=== PATIENT | female | born 1955 | race Caucasian/White ===

== ENCOUNTER 2018-06-16 16:25 | Emergency (ER) | payer BC, MEDICARE, SELFPAY ==
[2018-06-16 16:26] VITALS: BP 148/56; PULSE 80; RESP 20; TEMP 36.5; O2SAT 100; BMI 28.0
--- NOTE | 2018-06-16 17:15 | ED.VISSUMM ---
- ER Visit Summary Date of Service: 06/16/18 Chief Complaint: Forehead laceration History of Present Illness: The patient is a 62 F presenting secondary to a forehead laceration. Patient suffered a mechanical fall where she struck her forehead on its. There is no loss of consciousness. Patient not on any anticoagulants. Denies any visual changes numbness weakness nausea vomiting. Physical Examination: Primary survey: Airway is patent, breath sounds equal bilateral, central peripheral pulses 2+ and symmetric, GCS 15 out of 15. Vitals within normal limits. Secondary survey: General: Well-nourished well-developed no acute distress Head: Normocephalic 2 cm left forehead laceration Eyes: PERRLA, EOMI ENT: TMs clear no hemotympanum no drainage Neck: Nontender full range of motion, no step-offs noted Heart: Regular rate and rhythm no murmurs Lungs: Respirations nondistressed, lung sounds clear to auscultation bilaterally, chest nontender, normal chest excursion bilaterally Abdomen: Soft nontender nondistended normal bowel sounds no palpable abdominal masses Back: Nontender no step-offs noted Extremities: Nontender: Active full range of motion ?4 Skin: Normal color no trauma Neuro: Alert and oriented ?4, GCS 15 out of 15, no lateralizing neurological deficits, baseline tremor Test Results: None indicated Emergency Department Course and Treatment: Patient presented secondary to the forehead laceration. Patient is negative per the [place] [facility] head CT rules, there is no indication for neuroimaging. Wound was prepared with Shtracy-Clens, was anesthetized using 3 cc of lidocaine with epinephrine. It was copiously irrigated with saline and explored. There were no foreign bodies. Wound was then approximated using 4-0 nylon suture in a running fashion. A total of 4 sutures were placed. Patient tolerated this well. Wound was dressed with bacitracin. Patient was discharged. Disposition: Discharge Impression: 1. 2 cm left sided forehead laceration 2. Laceration repaired by ED physician This note was generated with [employer] dictation software. It may contain incorrect words, spelling, and punctuation that were not noted in review of the chart prior to signing ED Disposition - Plan for ED Patient: Disposition: Home or Assisted Living Chief Complaint: Fall Diagnosis: Forehead laceration Instructions: ED Laceration All Referrals: Paty Linder NP-C [Primary Care Provider] - 7 Days for suture removal
--- NOTE | 2018-06-16 18:44 | NURSING ---
DEONDRE CONTACTED AT HOME AND INSTRUCTED TO COME BACK FOR TETANUS SHOT. PT UNABLE TO GET RIDE HERE TONIGHT AND INSTRUCTED NOT TO WALK HERE. PT INFORMED OF THE NEED TO HAVE SHOT WITHIN NEXT 48 HOURS AND TOLD TO HAVE SOMEONE DRIVE HER HERE TOMORROW TO GET TETANUS SHOT. DR. NOONAN NOTIFIED TETANUS SHOT WAS NOT GIVEN AND INSTRUCTED TO MAKE SURE SHE CAME BACK WITHIN THE NEXT 48HOURS TO GET IT.
--- NOTE | 2018-06-17 12:19 | ED.RN ---
Pt was instructed to come back to the ED to receive Tetnus shot due to not receiving it as ordered yesterday (day of visit). I was instructed by bellows charger assembler to pull up patients V number from yesterday and administer adecel vaccine. Vaccine administered per JUL. Pt vital signs 128/72, 83, 99% R 16 and temp 98.2F. Pt tolerated well. Pt stayed in second triage room for 20 minutes per shot time protocol. No reaction noted.
[2018-06-17] MEDS: Diphth,Pertuss(Acell),Tet Vac 0.5 ML Vial IM (12:25)
== END 2018-06-16 17:30 | disposition home or self-care (01) ==
LOC: ED 18:02
PROVIDERS: Emergency Provider Emergency Medicine; Family Provider Nurse Practitioner Primary Care; PCP Nurse Practitioner Primary Care
DX: S01.81XA Laceration without foreign body of other part of head, initial encounter (principal); W01.10XA Fall on same level from slipping, tripping and stumbling with subsequent striking against unspecified object, initial encounter; Y93.9 Activity, unspecified; Y92.9 Unspecified place or not applicable; Y99.9 Unspecified external cause status; Z23 Encounter for immunization; R25.1 Tremor, unspecified; Z79.899 Other long term (current) drug therapy
CPT/HCPCS: 12011; 90715; 99284

== ENCOUNTER 2019-04-27 17:30 | Emergency (ER) | payer MEDICARE, MEDICAID, SELFPAY ==
[2019-04-27 17:31] VITALS: BP 154/86; PULSE 73; RESP 18; TEMP 36.9; O2SAT 99; BMI 25.0
--- NOTE | 2019-04-27 17:44 | RAD_ITS ---
STUDY: X-RAY - LEFT ANKLE REASON FOR EXAM: Female, 63 years old. Rolled ankle last Sebastián. Persistent pain and swelling. TECHNIQUE: 3 view(s) of the ankle. COMPARISON: None. FINDINGS: Normal visualized distal tibia and fibula. Normal medial and lateral malleoli. Normal tibiotalar articulation and ankle mortise. Normal visualized talus and calcaneus. Mild arthrosis of the visualized subtalar, talonavicular, calcaneocuboid and tarsal articulations. The soft tissue structures are unremarkable. RAD/Ankle min 3 Views IMPRESSION: No acute fracture or dislocation. Electronically Signed: Chris Rios DO at 17:55 EST Tel [phone], Service support ,
--- NOTE | 2019-04-27 18:45 | RAD_ITS ---
STUDY: X-RAY - LEFT FOOT CLINICAL: Female, 63 years old. Rolled foot and ankle. Anterior pain and bruising. TECHNIQUE: 3 view(s) of the foot. COMPARISON: None. FINDINGS: Normal talus, calcaneus, and tarsal bones. Normal visualized subtalar, talonavicular, calcaneocuboid, tarsal and tarsometatarsal articulations. Normal metatarsi. Normal metatarsophalangeal joint of the great toe. Normal tibial and fibular sesamoid bones. Normal interphalangeal joint of the great toe. Normal phalanges of the great toe. Normal second through fifth metatarsophalangeal joints. Normal interphalangeal joints and phalanges of the lesser toes. The soft tissue structures are unremarkable. RAD/Foot min 3 Views IMPRESSION: Normal x-ray examination of the foot. Electronically Signed: Chris Rios DO at 19:51 EST Tel [phone], Service support ,
--- NOTE | 2019-04-27 20:02 | ED.DCSUM_ITS ---
- ER Visit Summary Date of Service: 04/27/19 Chief Complaint: Left foot pain History of Present Illness: The patient is a 63 F who presents with left foot pain. This started after she rolled her ankle yesterday. Physical Examination: Dorsal foot bruising and tenderness to palpation. Test Results: Nursing ordered an ankle x-ray which was unremarkable. I ordered a foot x-ray which was normal. Emergency Department Course and Treatment: Patient declined pain meds, would like to take Aleve. Ice applied. Crutches. Rest, ice, elevate. Follow-up with primary care. Treatment Plan: As above Disposition: Discharge Impression: 1. Left foot pain This note was generated with [employer] dictation software. It may contain incorrect words, spelling, and punctuation that were not noted in review of the chart prior to signing ED Disposition - Plan for ED Patient: Referrals: Paty Linder NP-C [Primary Care Provider] -
--- NOTE | 2019-04-27 20:03 | DCINST.ED_ITS ---
ED Disposition - Plan for ED Patient: Instructions: CONTUSION, Foot Referrals: Paty Linder, INTERNET ASSESSOR-C [Primary Care Provider] -
--- NOTE | 2019-04-27 20:03 | ED.DEP ---
ED Disposition - Plan for ED Patient: Instructions: CONTUSION, Foot Referrals: Paty Linder, RN HEMATOLOGY-C [Primary Care Provider] -
[2019-04-27 20:49] VITALS: BP 139/79; PULSE 70; RESP 16; O2SAT 99
--- NOTE | 2019-04-27 20:50 | ED.RN ---
DISCUSSED WITH PT USE OF CRUTCHES AND SAFETY. PT FELT USING A WALKER WOULD BE BETTER FOR HER IT IS EASIER TO USE. NEIGHBOR AT BEDSIDE HAS A WALKER FOR PT TO USE. RN GOT OUR WALKER FOR TEST WALK AND INSTRUCTIONS. PT WAS WALKING WITH A VERY MINOR LIMP WITHOUT A WALKER. SHE TEST WALKED VERY WELL, RETURNED DEMONSTRATION. ALL QUESTIONS ANSWERED, NO FURTHER CONCERNS.
== END 2019-04-27 20:52 | disposition home or self-care (01) ==
LOC: ED 19:22
PROVIDERS: Emergency Provider Emergency Medicine; Family Provider Nurse Practitioner Primary Care; PCP Nurse Practitioner Primary Care
DX: S90.32XA Contusion of left foot, initial encounter (principal); X50.1XXA Overexertion from prolonged static or awkward postures, initial encounter; Y93.9 Activity, unspecified; Y92.9 Unspecified place or not applicable; Y99.9 Unspecified external cause status
CPT/HCPCS: 73610; 73630; 99282

== ENCOUNTER → 2019-12-07 12:00 | Outpatient (CLI) | payer MEDICARE, MEDICAID, SELFPAY ==
[2019-12-07 12:30] LABS: Hematocrit 43.2 % (37-47); Hemoglobin 14.4 g/dL (12.0-15.0); Mean Corp Hgb Conc 33.3 g/dL (32-36); Mean Corpuscular Hgb 30.8 pg (27.0-32.0); Mean Corpuscular Volume 92.3 fL (81-99); Mean Platelet Vol. 9.4 fl (6.2-12.0); Platelet Count 306 K/mm3 (150-450); RBC Distribution Width CV 13.1 % (11.6-14.6); Red Blood Count 4.68 M/mm3 (4.2-5.4); White Blood Count 8.6 K/mm3 (4.4-11.0)
== END ==
PROVIDERS: Referring Provider Nurse Practitioner Primary Care; Visit Provider Nurse Practitioner Primary Care
DX: R23.8 Other skin changes (principal)
CPT/HCPCS: 36415; 85027

== ENCOUNTER 2021-05-18 15:04 | Emergency (ER) | payer MEDICARE, MEDICAID, SELFPAY ==
[2021-05-18 15:07] VITALS: BP 164/81; PULSE 97; RESP 16; TEMP 36.1; O2SAT 95; BMI 26.5
--- NOTE | 2021-05-18 16:35 | CT_ITS ---
STUDY: CT BRAIN WITHOUT CONTRAST REASON FOR EXAM: Female, 65 years old. Change in Mental Status RADIATION DOSAGE (If Supplied By Facility): CTDIvol = ( 44.99 ) mGy, DLP = ( 812.98 ) mGycm TECHNIQUE: Transaxial CT imaging of the brain was performed without administration of intravenous contrast material. Individualized dose optimization techniques were used for this CT. COMPARISON: No relevant priors. FINDINGS: Normal soft tissue structures. Normal calvarium. Normal size ventricles and extra-axial spaces for the patient''s age. Normal white matter tracts of the cerebral hemispheres. Normal basal ganglia and thalami. Normal brainstem. Normal cerebellum. There is no intracranial hemorrhage. There are no findings of an acute ischemic infarction. Normal visualized paranasal sinuses. CT/Brain/Head without Contrast IMPRESSION: Normal unenhanced CT scan of the brain. Electronically Signed: Jeremiah Agustin MD at 17:28 EST Tel , Service support ,
--- NOTE | 2021-05-18 16:43 | EX.ED.VIS.PS ---
HPI HPI - Psych History of Present Illness Chief Complaint: Mental Health Detail of Chief Complaint: Brought in by police. Informant: patient and police/disability insurance claim examiner Onset/Context/Timing Context: Gradual Onset Timing: Continuous Current Severity: Mild Maximum Severity: Mild Narrative Narrative: 66-year-old female who is a very poor informant. Reportedly she was hanging out in an area latter day who called the police and they brought her in. Reportedly she had left her home on Tuesday. Patient herself is a very limited informant. There is a family member that is supposedly coming to the emergency department I will speak to her when they get here. Prior similar symptoms: Yes Recent Illness/Hospitalization: No PFSH PFSH Medical History unable to obtain Allergy/AdvReac Type Severity Reaction Status Date / Time No Known Allergies Allergy Verified 05/18/21 15:07 Surgical History unable to obtain Social History Smoking Status: Unknown if ever smoked ROS ROS ED ROS Narrative Denies any recent illness. Review of Systems ROS Unobtainable: due to mental condition Constitutional Constitutional ED: Denies fever(s) Eyes Eyes: Denies change in vision ENT ENT ED: Denies ear pain Cardiovascular Cardiovascular: Denies chest pain Respiratory/Chest Respiratory/Chest: Denies dyspnea Gastrointestinal Gastrointestinal: Denies abdominal pain Genitourinary Genitourinary ED: Denies dysuria Musculoskeletal Musculoskeletal: Denies myalgias Integumentary Denies rash Neurologic Neurologic: Denies headache(s) Psychiatric Psychiatric: Denies depression Endocrine Endocrinology: Denies polyuria Hematologic/Lymphatic Hematologic/Lymphatic: Denies easy bruising Allergic/Immunologic Allergic/Immunologic ED: Denies urticaria EXAM Physical Exam Narrative Exam Narrative: Well-appearing female vital signs stable afebrile. HEENT exam is abrasion left head. Pupils are reactive light. Scalp nontender. C-spine trachea nontender. Lungs clear to auscultation bilaterally. Heart regular rhythm rate about 95 no murmur. Chest wall nontender. Abdomen soft nontender. Pelvic girdle intact. Moving all 4 extremities. Both upper extremities are nontender with 5 and 5 product strategy director strength and normal range of motion. She has abrasions to both knees but has normal flexion-extension of both knees hips and ankles. There is a wound to her right second toe. She states that is from her shoes being too tight and she has been walking for several days. Neurologically she is awake. She is alert. She is answering questions and following commands. She is somewhat evasive with answers. She has no focal motor deficits. Const Vital Signs: 05/18/21 15:07 05/18/21 18:08 Temperature 97.0 F L Temperature Source Temporal Pulse Rate 97 81 Respiratory Rate 16 16 Blood Pressure 164/81 H 123/74 H Blood Pressure Mean 108 90 Pulse Ox 95 97 Oxygen Delivery Method Room Air Room Air Positive well nourished and well developed; Negative for obese, cachectic, contractures or unkempt General Appearance ED: well developed and NAD; Negative for unkempt, cachectic, contractures or pallor Nutritional Appearance: Negative for cachectic or obese HEENT Reports moist mucous membranes normocephalic and trauma; Negative for tenderness Eyes PERRL and EOMs intact bilaterally Neck no lymphadenopathy, supple and no JVD General: Negative for tenderness Resp normal respiratory effort and clear to auscultation bilaterally Auscultation: Negative for rales, rhonchi or wheezes Cardio S1 normal heart sound, S2 normal heart sound and no murmurs Rate: regular rate Rhythm: regular rhythm GI non-tender, non-distended and no masses Inspection: Negative for abdominal distention Auscultation: normoactive bowel sounds Palpation: soft; Negative for tender or guarding Back/Spine no CVA tenderness General Back: Negative for CVA tenderness Cervical Spine: Negative for cervical spine tenderness Extremity normal to inspection Extremity Narrative: Abrasions bilateral knees. Wound right second toe. General Extremety ED: Negative for edema or tenderness General Extremity: Negative for edema Neuro oriented x3 Sensorium / Orientation: alert, oriented to person, oriented to place and oriented to time; Negative for orientation impaired, confused, lethargic or stuporous Motor Exam: strength 5/5 throughout Psych mental status grossly normal, thought process normal, cooperative, affect normal, speech normal, activity/motor behavior normal, denies hallucinations, denies homicidal ideation and denies suicidal ideation Appearance: Negative for unkempt Skin General Skin Exam: Negative for jaundice or pallor Lesions: no lesions Rashes: no rashes Trauma: abrasion MDM MDM MDM Narrative Medical decision making narrative: 65-year-old female who reportedly has underlying psychiatric illness I left her home and has been walking for several days. Please go to emergency department today. She undergo an ED mental health work-up. Due to her fall and recent head injury seems like a minor abrasion to left side of her forehead I will obtain a CAT scan of her head in case she needs psychiatric placement. Discussed with the patient's brother who is at bedside. He states that she has actually been doing quite well. She is a highly functioning paranoid schizophrenic. She normally gets her medications and was supposed to get it today but did not show up. She is not been hospitalized for mental illness or any illness for years she states. She takes care of herself and lives alone and he checks on her frequently as do many of her friends. Crisis evaluated the patient and are comfortable with her being discharged home as [place] has is the patient and her brother. They are setting her up for an emergent appointment and crisis to get her medication injection and to be reevaluated. Lab Data Attestation: I reviewed the patient's lab results. Lab results narrative: CBC normal white count 9.6. Hemoglobin 13. Normal platelets. Electrolytes unremarkable gap of 6 normal BUN and creatinine. Glucose 116. Alcohol less than 3. CT of the brain no acute abnormality as read by the radiologist. Labs: Laboratory Results - last 24 hr 05/18/21 05/18/21 05/18/21 16:55 16:55 16:55 WBC 9.6 RBC 4.27 Hgb 13.0 Hct 38.8 MCV 90.9 MCH 30.4 MCHC 33.5 RDW Std Deviation 45.2 H RDW Coeff of Laith 13.6 Plt Count 272 MPV 9.7 Immature Gran % (Auto) 0.200 Neut % (Auto) 66.5 Lymph % (Auto) 20.7 [place] % (Auto) 9.4 Eos % (Auto) 2.8 Baso % (Auto) 0.4 Absolute Neuts (auto) 6.4 Absolute Lymphs (auto) 1.99 Nucleated RBC % 0 Sodium 139 Potassium 4.0 Chloride 103 Carbon Dioxide 30.0 Anion Gap 6 BUN 11 Creatinine 0.90 Estim Creat Clear Calc 50.86 Est GFR (MDRD) Af Amer 81 Est GFR (MDRD) Non-Af 67 BUN/Creatinine Ratio 12.2 Glucose 116 H Calcium 9.0 Ethyl Alcohol < 3.0 Radiography Diagnostic Testing: Clinical Impression(s) from Imaging Studies Brain CT 05/18/21 16:35 IMPRESSION: Normal unenhanced CT scan of the brain. Electronically Signed: Jeremiah Agustin MD at 17:28 EST Tel , Service support , Discharge Plan Triage Chief Complaint: Mental Health ED Provider: Bruce Amanda Dx/Rx/DC Orders Clinical Impression: Chronic paranoid schizophrenia Instructions: ED Schizophrenia, Paranoid Type Primary Care Provider: Paty Linder NP Referrals: Paty Linder NP, BACTERIOLOGY RESEARCH ASSISTANT-C [Primary Care Provider] - As Needed Activity Restrictions/Additional Instructions: Follow-up with crisis tomorrow they want to get your medication injection this week and is soon as possible. Return if you are feeling worse. Disposition Disposition: Home, Self Care
--- NOTE | 2021-05-18 16:54 | ED.RN ---
PT STARTED OUT HER ARRIVAL TO ED CLAIMING TO BE MANDY WARD. POLICE BROUGHT HER IN. CONFIRMED SHE IS NOT MANDY WARD, CHANGED REGISTRATION TO A SOFIYA HOLLANDE. BROTHER CALLED INTO ED LOOKING FOR HIS MISSING SISTER. ABLE TO DESCRIBE PT AND GIVEN A NAME. DO HAVE A MR WITH THE NAME PROVIDED DEONDRE KAPLAN, WHICH HAS A PHOTO ID APPEARS TO MATCH PATIENT. BROTHER REPORTS HAVING SEEN HER WEEK AND HALF AGO AND TALKED TO HER EVERY FEW DAYS WAS CONCERNED TODAY WHEN UNABLE TO GET A HOLD OF HER IT HAD BEEN 2 DAYS HE HADN'T HEARD FROM HER. BROTHER REPORTS PT HAS PARANOIC SCHIZOPHRENIA. PT VERY APPREHENSIVE ABOUT HELP/CARE INITIALLY. PT ABLE TO TEL ME SHE FELL. REPORTS SHE DOESNT THINK SHE HURT HERSLEF WHEN SH FELL BUT IS AGREEABLE TO GETTING CHECKED OUT. tALKED WITH PATIENT ABOUT HER BROTHER QIANA BEING PRESENT AND ASKED IF SHE WOULD LIKE HIM TO COME IN AND SEE HER. SHE SAID YES. BROTHER QIANA AT THE BEDSIDE.
[2021-05-18 17:12] LABS: Absolute Lymphocyte Count 1.99 X10^3/uL (0.83-4.51); Absolute Neutrophil Count 6.4 X10^3/uL (2.0-7.7); Basophil# 0.04 X10^3/uL; Basophil% 0.4 % (0-1); Eosinophil# 0.27 X10^3/uL; Eosinophils% 2.8 % (0-5); Hematocrit 38.8 % (37-47); Lymphocyte # 1.99 X10^3/ul (0.83-4.51); Lymphocyte % 20.7 % (19-41); Mean Corp Hgb Conc 33.5 g/dL (32-36); Mean Corpuscular Hgb 30.4 pg (27.0-32.0); Mean Corpuscular Volume 90.9 fL (81-99); Mean Platelet Vol. 9.7 fl (6.2-12.0); Monocyte# 0.91 X10^3/uL; Monocyte% 9.4 % (0-10); NRBC Flagged by Analyzer 0 % (0-5); Neutrophil % 66.5 % (47-70); Platelet Count 272 K/mm3 (150-450); RBC Distribution Width CV 13.6 % (11.6-14.6); RBC Distribution Width SD 45.2 fl (35.1-43.9); Red Blood Count 4.27 M/mm3 (4.2-5.4); White Blood Count 9.6 K/mm3 (4.4-11.0)
--- NOTE | 2021-05-18 17:19 | NURSING ---
CRISIS AWARE PT IS HERE AND NEEDS EVALUATED; NEEDS TO BE MEDICALLY CLEARED FIRST
[2021-05-18 17:42] LABS: Alcohol, Blood (Medical)-Serum < 3.0 mg/dL
[2021-05-18 17:44] LABS: Anion Gap 6 (5-15); BUN 11 mg/dL (7-18); BUN/Creat Ratio 12.2 RATIO (10-20); Chloride 103 mmol/L (98-107); EST Glomerular Filtration Rate 67 mL/min (>60); Est Glom Filt Rate - Afr Amer 81 mL/min (>60); Estimated Creatinine Clearance 50.86 ml/min; Glucose 116 mg/dL (74-106); Sodium Level 139 mmol/L (136-145)
[2021-05-18 18:08] VITALS: BP 123/74; PULSE 81; RESP 16; O2SAT 97
--- NOTE | 2021-05-18 18:17 | ED.RN ---
MELVIN WITH CRISIS NOTIFIED THAT PT IS CLEARED TO BE SEEN
--- NOTE | 2021-05-18 18:23 | ED.RN ---
SPOKE WITH QIANA, BROTHER, AFTER HER HAVING SPENT SOME TIME WITH HER. HE FEELS SHE IS BASELINE. HER BEHAVIOR IS NORMAL FOR HER WHEN SHE GETS STUBBORN. SHE ADMITTED TO HIM THAT SHE KNOW WHO SHE REALLY IS BY DIDN'T WHAT ANYONE ELSE KNOWING. HIS ONE CONCERN IS THAT HER PARANOIA HAS BEE GRADUALLY HIEGHTENED AND HE FEELS THIS IS WHY SHE SEEMS TO NOT WANT TO GO HOME. SHE TRULY BELIEVES SOMEONE IS GETTING INTO HER APARTMENT. RATHER THAN GO HOME SHE HAS BEEN WANDERING AND PUTTING SELF IN MORE DANGEROUS SITUATIONS.
--- NOTE | 2021-05-18 18:29 | ED.RN ---
PT ACKNOWLEDGING WHO SHE IS TO STAFF DEONDRE NOW. AGREEABLE AND TALKING WITH COUNSELOR VIA PHONE.
--- NOTE | 2021-05-18 18:30 | ED.RN ---
ASSISTED TO BATHROOM PT REPORTS I FORGOT REFERING TO URINE SAMPLE,
--- NOTE | 2021-05-18 18:51 | ED.RN ---
MARIANA FROM [facility] SPOKE WITH PATIENT AND BROTHER.
== END 2021-05-18 19:32 | disposition home or self-care (01) ==
PROVIDERS: Emergency Provider Emergency Medicine; PCP Nurse Practitioner Primary Care
DX: F20.0 Paranoid schizophrenia (principal); Z20.822 Contact with and (suspected) exposure to COVID-19; S00.91XA Abrasion of unspecified part of head, initial encounter; S80.212A Abrasion, left knee, initial encounter; S80.211A Abrasion, right knee, initial encounter; X58.XXXA Exposure to other specified factors, initial encounter; Y93.9 Activity, unspecified; Y92.9 Unspecified place or not applicable; Y99.9 Unspecified external cause status
CPT/HCPCS: 36415; 70450; 80048; 82077; 85025; 87426; 99282

== ENCOUNTER 2021-06-01 08:29 | Emergency (ER) | payer MEDICARE, MEDICAID, SELFPAY ==
[2021-06-01 08:30] VITALS: BP 153/80; PULSE 71; RESP 18; TEMP 36.6; O2SAT 100; BMI 26.6
--- NOTE | 2021-06-01 08:33 | RAD_ITS ---
STUDY: X-RAY - LEFT KNEE REASON FOR EXAM: Female, 65 years old. FALL -- ROOM 11 TECHNIQUE: 4 view(s) of the knee. COMPARISON: None. FINDINGS: Normal visualized distal femur. Normal visualized proximal tibia and fibula. Normal proximal tibiofibular articulation. Normal medial femorotibial compartment. Normal lateral femorotibial compartment. Normal patellofemoral articulation. The soft tissue structures are unremarkable. RAD/Knee 4 or More Views IMPRESSION: Normal x-ray examination of the knee. Electronically Signed: Abdirahman Boo MD at 9:40 EST , Service support ,
--- NOTE | 2021-06-01 09:22 | EX.ED.DYSGE1 ---
HPI History of Present Illness Chief Complaint: Lower Extremity Injury Informant: patient Narrative Narrative: Patient had a mechanical slip and fall about 2 weeks ago. She did hit both knees. She has been walking around. She states the left knee just is not getting better. The other 1 is. Her only complaint today is pain in the left patellar area in front of the knee. She states it was sometimes click. It does have full range of motion. She can bear weight. Walking does make it worse and rest makes it better. She really has not tried anything for it. [facility] Medical History Anxiety Depression Schizophrenia Home Medications fluphenazine HCl 2.5 mg PO DAILY 06/20/15 [History Last Taken Unknown] Fluphenazine Decanoate 1 dose IM .Q2 WEEKS 06/16/18 [History Last Taken Unknown] mv,Ca,min-folic acid-vit K1 [One-A-Day Women's 50 Plus Tab] 1 ea PO DAILY 06/16/18 [History Last Taken Unknown] Allergy/AdvReac Type Severity Reaction Status Date / Time amoxicillin AdvReac Unknown Verified 06/01/21 08:33 aspirin AdvReac Nausea/Vom/ Verified 06/01/21 08:33 Diarrhea CATS Allergy Itching Uncoded 06/01/21 08:33 DUST Allergy Itching Uncoded 06/01/21 08:33 Surgical History no surgical history Social History Smoking Status: Never smoker ROS ROS ED Constitutional Constitutional ED: Denies chills or fever(s) Gastrointestinal Gastrointestinal: Denies nausea or vomiting Musculoskeletal Musculoskeletal: Reports arthralgias and other Details: See history of present ; Denies back pain, myalgias or neck pain Integumentary Denies rash Neurologic Neurologic: Denies paresthesias or weakness EXAM Physical Exam Const Vital Signs: 06/01/21 08:30 Temperature 97.9 F Temperature Source Temporal Pulse Rate 71 Respiratory Rate 18 Blood Pressure 153/80 H Blood Pressure Mean 104 Pulse Ox 100 Oxygen Delivery Method Room Air Positive well nourished and well developed General Appearance ED: well developed and NAD HEENT Reports moist mucous membranes Negative for trauma Resp normal respiratory effort Back/Spine no CVA tenderness Extremity Extremity Narrative: There is an abrasion in the front of the right kneecap with some contusion down the brenner. However that knee is not hurting. The left 1 is a smaller abrasion that is healed. There does seem to be some prominence of the bone over the patella. But there is no effusion. Her range of motion is fully straight 90 degrees or more. It is stable to varus, valgus as well as Faisal and posterior drawer. Distally there is no swelling, edema, cord, tenderness along deep venous system or distended veins. Distal pulses and sensation are normal also. Neuro oriented x3 Sensorium / Orientation: alert Psych mental status grossly normal Skin Skin Narrative: Healed abrasion in the front of both knees with slight contusion in the front of the right knee. MDM MDM MDM Narrative Medical decision making narrative: 4 view x-ray of the left knee looked at by me shows no sign of fracture. No dislocation. Patella looks to be intact. No clear indication of mobile body. There may be a trace effusion seen on x-ray that is not really apparent clinically. Patient's had 2 weeks of discomfort. No sign of fracture or acute injury. She needs follow-up evaluation. She certainly could have soft tissue/meniscal or other injury. Ligaments seem to be solid on exam. No sign of vascular injury. She can use ice, rest, Tylenol or Motrin if she can tolerate it. We will give her referral to orthopedics. Discharge Plan Triage Chief Complaint: Lower Extremity Injury ED Provider: Andrew Lees Dx/Rx/DC Orders Clinical Impression: Fall from slip, trip, or stumble, Contusion of left knee Instructions: ED Knee Sprain Prescriptions: No Action fluphenazine HCl 1 MG tablet 2.5 mg PO DAILY RF: 0 mv,Ca,min-folic acid-vit K1 [One-A-Day Women's 50 Plus] 1 EACH tablet 1 ea PO DAILY RF: 0 Fluphenazine Decanoate 1 dose IM .Q2 WEEKS RF: 0 Primary Care Provider: Paty Linder NP Referrals: Daniel Jacinto MD [STAFF PHYSICIAN] - 10-14 Days if not better Paty Linder NP, CERTIFIED MEDICAL AIDE-C [Primary Care Provider] - Activity Restrictions/Additional Instructions: Use ice, rest, Tylenol or [id number] pain relievers. Return with fevers, pain worsening, swelling, redness. Disposition Disposition: Home, Self Care
[2021-06-01 10:03] VITALS: BP 175/81; PULSE 70; RESP 16; O2SAT 98
== END 2021-06-01 10:15 | disposition home or self-care (01) ==
PROVIDERS: Emergency Provider Emergency Medicine; PCP Nurse Practitioner Primary Care; Visit Provider Emergency Medicine
DX: S80.02XA Contusion of left knee, initial encounter (principal); F20.9 Schizophrenia, unspecified; S80.01XA Contusion of right knee, initial encounter; W01.0XXA Fall on same level from slipping, tripping and stumbling without subsequent striking against object, initial encounter; Y93.9 Activity, unspecified; Y92.9 Unspecified place or not applicable; F41.9 Anxiety disorder, unspecified; F32.A Depression, unspecified; Z79.899 Other long term (current) drug therapy
CPT/HCPCS: 73564; 99284

== ENCOUNTER 2021-07-11 09:41 | Emergency (ER) | payer MEDICARE, MEDICAID, SELFPAY ==
[2021-07-11 09:42] VITALS: BP 148/95; PULSE 73; RESP 16; TEMP 36.5; O2SAT 100; BMI 31.4
--- NOTE | 2021-07-11 09:58 | EKG12_ITS ---
Test Reason : Blood Pressure : / mmHG Vent. Rate : 070 BPM Atrial Rate : 070 BPM P-R Int : 132 ms QRS Dur : 090 ms QT Int : 402 ms P-R-T Axes : 037 013 028 degrees QTc Int : 434 ms Normal sinus rhythm Normal ECG Confirmed by EDWINA LEON, BALDO ([id number]), editor managing newspaper VITALIY DONOVAN ([id number]) on 07/15/2021 12:37:25 P M Referred By: Confirmed By:JOSE J BLAND MD
--- NOTE | 2021-07-11 09:58 | RAD_ITS ---
STUDY: X-RAY CHEST REASON FOR EXAM: Female, 65 years old. Chest pain TECHNIQUE: Single AP portable view of the chest. COMPARISON: 06/20/2015. FINDINGS: The lungs are clear and expanded. There is no demonstrated pleural abnormality. Normal size heart. Normal mediastinum and braulio. Normal visualized pulmonary arteries. There is mild atherosclerotic calcification of the aortic arch with tortuosity. No demonstrated acute osseous changes. There is no demonstrated abnormality of the visualized soft tissue structures of the upper abdomen. RAD/Chest 1 View (Portable) IMPRESSION: No active pulmonary disease. Electronically Signed: Frankie Aguilar, at 10:47 EST ,
[2021-07-11 10:00] VITALS: O2SAT 100
--- NOTE | 2021-07-11 10:02 | ED.VIS.CHEST ---
HPI History of Present Illness Chief Complaint: Chest Pain Informant: patient and legal guardian Narrative Narrative: Patient is a 65-year-old female with history of hypertension and paranoid schizophrenia presenting with chest pain. Patient states after breakfast this morning she had tea and then developed pain in the center and slightly to the left of her chest. It radiated down her left arm. She states it is a pressure. Denies any radiation to her neck. Upon questioning she notes maybe it did radiate to her back. It lasted for couple seconds and then resolved. It has been intermittent since. She currently denies any symptoms. Initially she just thought she was hungry still. She notes she had toast and oatmeal for breakfast. Did have some nausea but no vomiting. No report of any sweating. No abdominal pain. No difficulty breathing. Denies any leg swelling. Denies a history of DVT or PE. Denies any known cardiac history. Is never had a stress test. Her brother who is her legal guardian notes that she did recently have an increase of her psychiatric medications this week and is not sure if this could be related. [facility] Medical History Anxiety Depression Schizophrenia Home Medications fluphenazine HCl 5 mg PO DAILY 06/20/15 [History Last Taken Unknown] Fluphenazine Decanoate 1 dose IM .Q2 WEEKS 06/16/18 [History Last Taken Unknown] mv,Ca,min-folic acid-vit K1 [One-A-Day Women's 50 Plus Tab] 1 ea PO DAILY 06/16/18 [History Last Taken Unknown] metoprolol succinate 25 mg PO DAILY 07/11/21 [History Last Taken Unknown] Allergy/AdvReac Type Severity Reaction Status Date / Time amoxicillin AdvReac Unknown Verified 07/11/21 09:42 aspirin AdvReac Nausea/Vom/ Verified 07/11/21 09:42 Diarrhea CATS Allergy Itching Uncoded 07/11/21 09:42 DUST Allergy Itching Uncoded 07/11/21 09:42 Social History Smoking Status: Never smoker ROS ROS ED Constitutional Constitutional ED: Denies chills, fever(s) or sweats Eyes Eyes: Denies change in vision ENT ENT ED: Denies rhinorrhea or sore throat Cardiovascular Cardiovascular: Reports as per HPI and chest pain; Denies palpitations Respiratory/Chest Respiratory/Chest: Denies cough or dyspnea Gastrointestinal Gastrointestinal: Reports nausea; Denies abdominal pain, diarrhea or vomiting Musculoskeletal Musculoskeletal: Denies arthralgias, back pain or myalgias Integumentary Denies rash Neurologic Neurologic: Denies headache(s), paresthesias or weakness Psychiatric Psychiatric: Denies depression EXAM Physical Exam Const Vital Signs: 07/11/21 09:42 07/11/21 09:45 07/11/21 10:00 Temperature 97.7 F L Temperature Source Oral Pulse Rate 73 Respiratory Rate 16 Respiratory Effort Normal Non-Labored Blood Pressure 148/95 H Blood Pressure Mean 112 Pulse Ox 100 100 Oxygen Delivery Method Room Air Room Air 07/11/21 10:58 Temperature Temperature Source Pulse Rate 71 Respiratory Rate 20 H Respiratory Effort Blood Pressure 166/96 H Blood Pressure Mean 119 Pulse Ox 93 Oxygen Delivery Method Room Air Positive well nourished and well developed General Appearance ED: well developed HEENT Reports moist mucous membranes normocephalic and atraumatic Eyes PERRL and EOMs intact bilaterally Neck supple and no JVD Chest Wall inspection of chest normal and palpation of chest normal Resp normal respiratory effort and clear to auscultation bilaterally Effort and Inspection: Negative for respiratory distress Cardio regular rate, regular rhythm and no murmurs GI normal to inspection, nondistended, normoactive bowel sounds, soft to palpation and no masses Extremity normal to inspection Extremity Narrative: 2+ radial and DP pulses General Extremety ED: Negative for edema or tenderness General Extremity: Negative for edema Neuro oriented x3 and no sensory deficits noted Sensorium / Orientation: awake and alert Motor Exam: Negative for general weakness Psych mental status grossly normal Skin no rashes or lesions noted and no wounds Heart Score History: Slightly/Non-Suspicious ECG: Normal Age: >/= 65 years Risk Factors: 1 or 2 Risk Factors Troponin: </= Normal Limit Score: 3 MDM MDM MDM Narrative Medical decision making narrative: Patient evaluated for an episode of chest pain. The chest pain sounds atypical however given his onset was an hour prior to arrival cardiac work-up is obtained. She is currently asymptomatic. EKG is normal. Initial high-sensitivity troponin is normal. Her only risk factor for PE is her age and D-dimer is also normal. I do not specked a PE and I do not think CT is indicated. Chest x-ray is normal. Patient did have a delta troponin ordered. She refused repeat troponin. She states we've taken enough blood. Patient is counseled that we could be missing a silent heart attack or signs of cardiac ischemia. She is counseled that if we miss that she could have irreversible cardiac damage. She verbalizes agreement understand the plan. Her brother who is her guardian is in the room and states he does not want to force her into this blood draw. Overall I think she is low risk for ACS however she is counseled on the risk of refusing this blood draw. She is encouraged to follow-up with her primary care doctor next week for further cardiac evaluation. She is encouraged to return to the emergency room should she have subsequent chest pain. Patient refused aspirin in the emergency room because it causes her upset stomach. Lab Data Attestation: I reviewed the patient's lab results. Labs: Laboratory Results - last 24 hr 07/11/21 07/11/21 07/11/21 09:48 09:48 09:48 WBC 8.7 RBC 4.48 Hgb 14.0 Hct 41.0 MCV 91.5 MCH 31.3 MCHC 34.1 RDW Std Deviation 44.4 H RDW Coeff of Laith 13.2 Plt Count 293 MPV 9.4 Immature Gran % (Auto) 0.300 Neut % (Auto) 59.2 Lymph % (Auto) 29.7 [place] % (Auto) 6.8 Eos % (Auto) 3.4 Baso % (Auto) 0.6 Absolute Neuts (auto) 5.2 Absolute Lymphs (auto) 2.59 Nucleated RBC % 0 D-Dimer Quant (PE/DVT) 0.27 Sodium 135 L Potassium 3.6 Chloride 100 Carbon Dioxide 28.0 Anion Gap 7 BUN 13 Creatinine 0.70 Estim Creat Clear Calc 43.77 Est GFR (MDRD) Af Amer 107 Est GFR (MDRD) Non-Af 89 BUN/Creatinine Ratio 18.6 Glucose 96 Calcium 8.9 Troponin I High Sens 5 Radiography Chest X-Ray - ED: 1 View, Read by ED Physician, Read by Radiologist, Normal and No Acute Disease Diagnostic Testing: Clinical Impression(s) from Imaging Studies Chest X-Ray 07/11/21 09:58 IMPRESSION: No active pulmonary disease. Electronically Signed: Frankie Aguilar, at 10:47 EST , Rhythm Strip Rhythm Strip: Sinus Rhythm Rate: 70 Ectopy: None EKG Initial EKG: Attestation: I personally reviewed and interpreted this EKG as follows: Interpretation: Sinus Rhythm Comments: Normal sinus rhythm rate of 70 Normal axis Normal intervals Normal ST segments Discharge Plan Triage Chief Complaint: Chest Pain ED Provider: Michaela Kumar Dx/Rx/DC Orders Clinical Impression: Chest pain of uncertain etiology Instructions: ED Chest Pain, Uncertain Cause Prescriptions: No Action fluphenazine HCl 1 MG tablet 5 mg PO DAILY RF: 0 One-A-Day Women's 50 Plus 1 EACH tablet 1 ea PO DAILY RF: 0 Fluphenazine Decanoate 1 dose IM .Q2 WEEKS RF: 0 metoprolol succinate 25 mg tablet extended release 24 hr 25 mg PO DAILY RF: 0 Primary Care Provider: Paty Linder NP Referrals: Paty Linder NP, [employer] [Primary Care Provider] - Activity Restrictions/Additional Instructions: The exact cause of your chest pain is not clear. Your work-up was negative however it was limited as we were not able to perform a repeat troponin (which is a heart blood marker). Please return to the emergency room if you develop worsening pain and make sure you follow-up with your primary care provider next week for further outpatient cardiac evaluation. Disposition Disposition: Home, Self Care
[2021-07-11 10:10] LABS: Absolute Lymphocyte Count 2.59 X10^3/uL (0.83-4.51); Absolute Neutrophil Count 5.2 X10^3/uL (2.0-7.7); Basophil# 0.05 X10^3/uL; Basophil% 0.6 % (0-1); Eosinophils% 3.4 % (0-5); Lymphocyte # 2.59 X10^3/ul (0.83-4.51); Lymphocyte % 29.7 % (19-41); Mean Corp Hgb Conc 34.1 g/dL (32-36); Mean Corpuscular Hgb 31.3 pg (27.0-32.0); Mean Corpuscular Volume 91.5 fL (81-99); Mean Platelet Vol. 9.4 fl (6.2-12.0); Monocyte# 0.59 X10^3/uL; Monocyte% 6.8 % (0-10); NRBC Flagged by Analyzer 0 % (0-5); Neutrophil # 5.15 X10^3/uL (2.7-7.7); Neutrophil % 59.2 % (47-70); Platelet Count 293 K/mm3 (150-450); RBC Distribution Width CV 13.2 % (11.6-14.6); RBC Distribution Width SD 44.4 fl (35.1-43.9); Red Blood Count 4.48 M/mm3 (4.2-5.4); White Blood Count 8.7 K/mm3 (4.4-11.0)
[2021-07-11 10:17] LABS: D-Dimer Quantitative (DVT/PE) 0.27 FEU/ug/m (0.27-0.49)
[2021-07-11 10:23] LABS: Anion Gap 7 (5-15); BUN 13 mg/dL (7-18); BUN/Creat Ratio 18.6 RATIO (10-20); Calcium,Total 8.9 mg/dL (8.5-10.1); Chloride 100 mmol/L (98-107); EST Glomerular Filtration Rate 89 mL/min (>60); Est Glom Filt Rate - Afr Amer 107 mL/min (>60); Estimated Creatinine Clearance 43.77 ml/min; Glucose 96 mg/dL (74-106); Potassium 3.6 mmol/L (3.5-5.1); Sodium Level 135 mmol/L (136-145); Troponin-I HS 5 pg/mL (3.0-54.0)
[2021-07-11 10:58] VITALS: BP 166/96; PULSE 71; RESP 20; O2SAT 93
== END 2021-07-11 12:10 | disposition home or self-care (01) ==
PROVIDERS: Emergency Provider Emergency Medicine; PCP Nurse Practitioner Primary Care; Visit Provider Emergency Medicine
DX: R07.9 Chest pain, unspecified (principal); F20.0 Paranoid schizophrenia; R11.0 Nausea; I10 Essential (primary) hypertension; F32.A Depression, unspecified; F41.9 Anxiety disorder, unspecified; Z79.899 Other long term (current) drug therapy
CPT/HCPCS: 71045; 80048; 84484; 85025; 85379; 93005; 99285; A4216

== ENCOUNTER 2022-01-17 10:03 | Emergency (ER) | payer MEDICARE, MEDICAID, SELFPAY ==
[2022-01-17 10:04] VITALS: BP 158/119; PULSE 81; RESP 18; TEMP 36.3; O2SAT 98; BMI 29.7
--- NOTE | 2022-01-17 10:20 | CT_ITS ---
STUDY: CT ABDOMEN AND PELVIS WITH CONTRAST REASON FOR EXAM: Female, 66 years old. LLQ abd pain RADIATION DOSAGE (If Supplied By Facility): CTDIvol = ( 15.59 ) mGy, DLP = ( 963.93 ) mGycm TECHNIQUE: Transaxial images were obtained from the dome of the diaphragm to the symphysis pubis without oral contrast. 100 ML ISOVUE 370 was administered. Sagittal and coronal images were reconstructed. Individualized dose optimization techniques were used for this CT. COMPARISON: None. FINDINGS: The visualized lung bases are unremarkable. The visualized portions of the heart are within normal limits. Normal liver. There is calcification of the gallbladder wall consistent with porcelain gallbladder. Normal spleen. Normal pancreas. Normal bilateral adrenal glands. Normal right kidney. Normal left kidney. Normal visualized stomach. Normal small intestine. Moderate sigmoid and mild descending colon diverticulosis. No evidence of diverticulitis. Mild diverticulosis of the transverse and descending colon. No evidence of diverticulitis. The appendix is visualized and appears normal. Normal abdominal aorta. Normal inferior vena cava. Normal retroperitoneum. Normal urinary bladder. Normal abdominal wall. L5-S1 grade 1 spondylolisthesis with bilateral spondylolysis. Severe degenerative disc disease L4-S1. Mild levoscoliosis of the thoracolumbar spine. Severe bilateral facet arthropathy L5-S1, moderate bilateral facet arthropathy L4-5. CT/Abdomen/Pelvis W IV Cont ONLY IMPRESSION: Diverticulosis of the colon most pronounced involving the sigmoid colon. No evidence of diverticulitis. 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 Correlation advised. Thoracolumbar levoscoliosis. Degenerative changes of lower lumbar spine L4-S1 detailed above. Electronically Signed: Josué Amado MD, IAM at 11:33 EDT ,
--- NOTE | 2022-01-17 10:21 | ED.VIS.GI ---
HPI HPI - GI History of Present Illness Chief Complaint: Abd Pain Informant: patient Abdominal Pain/Flank Pain Onset: Days Context: Gradual Onset Timing: Continuous Quality: Aching Location: LLQ Current Severity: Mild Worsened by: Nothing Relieved by: Nothing Nausea/Vomiting/Emesis GI Symptom: Negative for Nausea or Vomiting Diarrhea/Melena/Hematochezia GI Symptom: Positive for Diarrhea; Negative for Melena or Hematochezia Stool Quality: Positive for Loose Severity: Mild Associated Symptoms Associated Symptoms: Negative for Dysuria, Frequency, Hematuria or Urgency Narrative Narrative: 66-year-old female history of hypertension. States that she has lower abdominal pain for the last 3 to 4 days beginning around . Dull aching pain primarily suprapubic and left lower quadrant. She denies any nausea, or vomiting. She has had mildly loose stools. No melena. No fever. No weight loss. No dysuria. No fall or trauma. She denies any prior abdominal surgeries. Prior similar symptoms: No Recent Illness/Hospitalization: No PFSH PFSH Medical History Anxiety Depression Schizophrenia Home Medications fluphenazine HCl 1 mg tablet 5 mg PO DAILY 06/20/15 [History Last Taken Unknown] Fluphenazine Decanoate 1 dose IM .Q2 WEEKS 06/16/18 [History Last Taken Unknown] tynmrwlffqks-kkdfkfai-bhmyont-folic acid 400 mcg-vit K1 20 mcg tablet (One-A-Day Women's 50 Plus) 1 ea PO DAILY 06/16/18 [History Last Taken Unknown] metoprolol succinate 25 mg tablet,extended release 24 hr 25 mg PO DAILY 07/11/21 [History Last Taken Unknown] Allergy/AdvReac Type Severity Reaction Status Date / Time amoxicillin AdvReac Unknown Verified 07/11/21 09:42 aspirin AdvReac Nausea/Vom/ Verified 07/11/21 09:42 Diarrhea CATS Allergy Itching Uncoded 07/11/21 09:42 DUST Allergy Itching Uncoded 07/11/21 09:42 Social History Smoking Status: Never smoker ROS ROS ED ROS Narrative Lower abdominal pain. Mild loose stools. Review of Systems ROS Unobtainable: Denies due to encephalopathy Constitutional Constitutional ED: Denies chills or fever(s) ENT ENT ED: Denies ear pain Cardiovascular Cardiovascular: Denies chest pain Respiratory/Chest Respiratory/Chest: Denies cough or dyspnea Gastrointestinal Gastrointestinal: Reports abdominal pain and diarrhea; Denies constipation, melena, nausea or vomiting Genitourinary Genitourinary ED: Denies dysuria or hematuria Musculoskeletal Musculoskeletal: Denies arthralgias or back pain Integumentary Denies abscess or Abrasions Neurologic Neurologic: Denies headache(s) Psychiatric Psychiatric: Denies anxiety Endocrine Endocrinology: Denies polydipsia Hematologic/Lymphatic Hematologic/Lymphatic: Denies easy bleeding Allergic/Immunologic Allergic/Immunologic ED: Denies mouth swelling EXAM Physical Exam Narrative Exam Narrative: 66-year-old female no acute distress. Vital signs stable patient blood pressure is elevated 150/119 and a be reassessed. H EENT exam unremarkable. Moist [place] membranes. Lungs are clear. Heart regular rhythm no murmur rate about 80. Abdomen soft very mild discomfort left lower quadrant. No organomegaly or masses. No hernia. No obstruction. No pulsatile mass. No right upper or lower quadrant tenderness. No peritoneal signs. Moving all 4 extremities. Nontender no edema. Back nontender. Const Vital Signs: 01/17/22 10:04 Temperature 97.4 F L Temperature Source Temporal Pulse Rate 81 Respiratory Rate 18 Blood Pressure 158/119 H Blood Pressure Mean 132 Pulse Ox 98 Oxygen Delivery Method Room Air Positive well nourished and well developed; Negative for cachectic, contractures or unkempt General Appearance ED: well developed; Negative for unkempt, cachectic, contractures or pallor Nutritional Appearance: Negative for cachectic HEENT Reports moist mucous membranes normocephalic and atraumatic; Negative for trauma or tenderness Eyes PERRL and EOMs intact bilaterally General Eye ED: Negative for pale conjunctiva or scleral icterus Neck no lymphadenopathy, supple and no JVD General: Negative for tenderness Carotids: Negative for other Lymph Lymphatic: Negative for other Resp normal respiratory effort and clear to auscultation bilaterally Effort and Inspection: Negative for respiratory distress or retractions Auscultation: Negative for rales, rhonchi or wheezes Cardio regular rate, regular rhythm, S1 normal heart sound, S2 normal heart sound and no murmurs Rate: Negative for bradycardia or tachycardic Rhythm: Negative for abnormal rhythm GI non-distended and no masses; Negative for non-tender Inspection: Negative for abdominal distention Auscultation: normoactive bowel sounds Palpation: soft and tender; Negative for guarding, rigid, hepatomegaly, splenomegaly, hernia, mass, pulsatile mass or rebound tenderness present Back/Spine no CVA tenderness General Back: Negative for CVA tenderness Cervical Spine: Negative for cervical spine tenderness Thoracic Spine / Upper Back: Negative for thoracic spinal tenderness Lumbar Spine / Lower Back: Negative for lumbar spinal tenderness Extremity full ROM General Extremety ED: Negative for edema or tenderness General Extremity: Negative for edema Neuro CN's II-XII intact bilaterally and moves all extremities Sensorium / Orientation: alert, oriented to person, oriented to place and oriented to time; Negative for orientation impaired, confused, lethargic or stuporous Motor Exam: strength 5/5 throughout Psych mental status grossly normal and thought process normal Appearance: Negative for unkempt Attitude: No agitated Mood & Affect: Negative for depressed, anxious or tearful Skin no wounds General Skin Exam: Negative for jaundice or pallor Lesions: no lesions Rashes: no rashes Trauma: Negative for abrasion Nails: Negative for discolored MDM MDM MDM Narrative Medical decision making narrative: C6-year-old female with lower abdominal pain. Differential would include diverticulitis, UTI versus other etiologies. Labs and CAT scan are being obtained. She did not want anything for pain and was not having any nausea. She will be treated with IV fluids also. Repeat exam patient is doing well at 12:15 PM. Abdomen is benign. We went over all of her lab results and CAT scan. She will be discharged home with outpatient follow-up with her nurse practitioner. Lab Data Attestation: I reviewed the patient's lab results. Lab results narrative: CBC unremarkable white count of 6.6. H&H of 13 and 41. Platelets 262. CMP showed unremarkable electrolytes gap of 6 normal BUN and creatinine. Liver enzymes unremarkable. Glucose 156. UA negative no white or red cells no nitrates or bacteria. CT of the abdomen shows a porcelain gallbladder. And diverticulosis but no diverticulitis as read by the radiologist. Labs: Laboratory Results - last 24 hr 01/17/22 01/17/22 01/17/22 10:14 10:14 11:48 WBC 6.6 RBC 4.45 Hgb 13.6 Hct 41.3 MCV 92.8 MCH 30.6 MCHC 32.9 RDW Std Deviation 45.1 H RDW Coeff of Laith 13.2 Plt Count 262 MPV 9.6 Immature Gran % (Auto) 0.300 Neut % (Auto) 57.5 Lymph % (Auto) 30.4 [place] % (Auto) 6.4 Eos % (Auto) 4.8 Baso % (Auto) 0.6 Absolute Neuts (auto) 3.8 Absolute Lymphs (auto) 2.01 Nucleated RBC % 0 Sodium 137 Potassium 4.2 Chloride 104 Carbon Dioxide 27.0 Anion Gap 6 BUN 9 Creatinine 0.84 Estim Creat Clear Calc 51.40 Est GFR (MDRD) Af Amer 86 Est GFR (MDRD) Non-Af 71 BUN/Creatinine Ratio 10.7 Glucose 156 H Calcium 8.6 Total Bilirubin 0.60 AST 14 L ALT 31 Alkaline Phosphatase 62 Total Protein 6.9 Albumin 3.5 Globulin 3.4 Albumin/Globulin Ratio 1.0 Urine Color Yellow Urine Clarity Clear Urine pH 7.0 Ur Specific [place] 1.005 Urine Protein Negative Urine Glucose (UA) Normal Urine Ketones Negative Urine Occult Blood Negative Urine Nitrite Negative Urine Bilirubin Negative Urine Urobilinogen Normal Ur Leukocyte Esterase 25 H Urine RBC 0 SEEN Urine WBC 0 SEEN Ur Squamous Epith Cells 0 SEEN Urine Bacteria 0 SEEN Urine Mucus 0 SEEN Radiography Diagnostic Testing: Clinical Impression(s) from Imaging Studies Abdomen/Pelvis CT 01/17/22 10:20 IMPRESSION: Diverticulosis of the colon most pronounced involving the sigmoid colon. No evidence of diverticulitis. 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 Correlation advised. Thoracolumbar levoscoliosis. Degenerative changes of lower lumbar spine L4-S1 detailed above. Electronically Signed: Josué Amado MD, IAM at 11:33 EDT , Discharge Plan Triage Chief Complaint: Abd Pain ED Provider: Bruce Amanda Dx/Rx/DC Orders Clinical Impression: Abdominal pain, History of chronic hypertension Instructions: Abdominal Pain Prescriptions: No Action fluphenazine HCl 1 MG tablet 5 mg PO DAILY One-A-Day Women's 50 Plus 1 EACH tablet 1 ea PO DAILY Fluphenazine Decanoate 1 dose IM .Q2 WEEKS Rx Instructions: PT DOES NOT KNOW DOSE OF SHOT SHE TAKES metoprolol succinate 25 mg tablet extended release 24 hr 25 mg PO DAILY Primary Care Provider: Paty Linder NP Referrals: Paty Linder NP, [facility] [Primary Care Provider] - 3-5 Days if not improving Activity Restrictions/Additional Instructions: Your labs and CAT scan did not show any specific cause your pain. Your urinalysis was normal. Follow-up with your nurse practitioner as needed. Tylenol for pain. Disposition Disposition: Home, Self Care
[2022-01-17 10:37] LABS: Absolute Lymphocyte Count 2.01 X10^3/uL (0.83-4.51); Absolute Neutrophil Count 3.8 X10^3/uL (2.0-7.7); Basophil# 0.04 X10^3/uL; Basophil% 0.6 % (0-1); Eosinophil# 0.32 X10^3/uL; Eosinophils% 4.8 % (0-5); Hematocrit 41.3 % (37-47); Hemoglobin 13.6 g/dL (12.0-15.0); Lymphocyte # 2.01 X10^3/ul (0.83-4.51); Lymphocyte % 30.4 % (19-41); Mean Corp Hgb Conc 32.9 g/dL (32-36); Mean Corpuscular Hgb 30.6 pg (27.0-32.0); Mean Corpuscular Volume 92.8 fL (81-99); Mean Platelet Vol. 9.6 fl (6.2-12.0); Monocyte# 0.42 X10^3/uL; Monocyte% 6.4 % (0-10); NRBC Flagged by Analyzer 0 % (0-5); Neutrophil % 57.5 % (47-70); Platelet Count 262 K/mm3 (150-450); RBC Distribution Width CV 13.2 % (11.6-14.6); RBC Distribution Width SD 45.1 fl (35.1-43.9); Red Blood Count 4.45 M/mm3 (4.2-5.4); White Blood Count 6.6 K/mm3 (4.4-11.0)
[2022-01-17] MEDS: 0.9% Normal Saline 1,000 ML 1000 ML IV (10:51)
[2022-01-17 10:57] LABS: AST(SGOT) 14 U/L (15-37); Alanine Aminotransfer ALT/SGPT 31 U/L (13-56); Albumin, Serum 3.5 g/dL (3.2-5.0); Alkaline Phosphatase 62 U/L (45-117); Anion Gap 6 (5-15); BUN 9 mg/dL (7-18); BUN/Creat Ratio 10.7 RATIO (10-20); Calcium,Total 8.6 mg/dL (8.5-10.1); Chloride 104 mmol/L (98-107); Creatinine, Serum 0.84 mg/dL (0.55-1.02); EST Glomerular Filtration Rate 71 mL/min (>60); Est Glom Filt Rate - Afr Amer 86 mL/min (>60); Globulin 3.4 g/dL (2.2-4.2); Glucose 156 mg/dL (74-106); Potassium 4.2 mmol/L (3.5-5.1); Protein, Total 6.9 g/dL (6.4-8.2); Sodium Level 137 mmol/L (136-145)
[2022-01-17 11:55] LABS: Bacteria 0 SEEN /hpf (None Seen); Mucous, Urine 0 SEEN /hpf (<or=2+); Red Blood Cells-Urine 0 SEEN /hpf (0-5); Squamous Epithelial Cells - UA 0 SEEN /hpf (5-10); White Blood Cells 0 SEEN /hpf (0-5)
[2022-01-17 11:57] LABS: Color, Urine Yellow (Yellow); Glucose, Dipstick Normal (Normal); Ketone-Dipstick Negative (Negative); Leukocyte Esterase-Dipstick 25 /ul (Negative); Nitrite-Dipstick Negative (Negative); Occult Blood-Urine Negative /ul (Negative); Protein-Dipstick Negative (Negative); Specific Gravity, Urine 1.005 (1.002-1.030); Urine Bilirubin Dipstick Negative (Negative); Urine Clarity Clear (Clear); Urine Urobilinogen Normal (Normal)
== END 2022-01-17 12:26 | disposition home or self-care (01) ==
PROVIDERS: Emergency Provider Emergency Medicine; PCP Nurse Practitioner Primary Care; Visit Provider Emergency Medicine
DX: R10.32 Left lower quadrant pain (principal); F20.9 Schizophrenia, unspecified; R19.7 Diarrhea, unspecified; I10 Essential (primary) hypertension; F32.A Depression, unspecified; F41.9 Anxiety disorder, unspecified; Z79.899 Other long term (current) drug therapy
CPT/HCPCS: 74177; 80053; 81001; 85025; 96360; 96361; 99285; J7030; Q9967; A4216

== ENCOUNTER 2022-06-18 03:52 | Emergency (ER) | payer MEDICARE, MEDICAID, SELFPAY ==
[2022-06-18 03:53] VITALS: BP 158/104; PULSE 70; RESP 25; TEMP 36.1; O2SAT 98; BMI 29.6
--- NOTE | 2022-06-18 04:00 | EKG12_ITS ---
Test Reason : CP Blood Pressure : / mmHG Vent. Rate : 068 BPM Atrial Rate : 068 BPM P-R Int : 132 ms QRS Dur : 080 ms QT Int : 408 ms P-R-T Axes : 025 020 034 degrees QTc Int : 433 ms Normal sinus rhythm Normal ECG Confirmed by VASYL LEON, LORETTA ([id number]), editor map VITALIY DONOVAN ([id number]) on 06/21/2022 9:16:20 AM Referred By: SHIREEN Confirmed By:LORETTA FALLNO MD
[2022-06-18 04:33] LABS: Absolute Lymphocyte Count 2.65 X10^3/uL (0.83-4.51); Absolute Neutrophil Count 3.9 X10^3/uL (2.0-7.7); Basophil# 0.04 X10^3/uL; Basophil% 0.5 % (0-1); Eosinophil# 0.32 X10^3/uL; Eosinophils% 4.2 % (0-5); Hematocrit 41.3 % (37-47); Hemoglobin 13.9 g/dL (12.0-15.0); Lymphocyte # 2.65 X10^3/ul (0.83-4.51); Lymphocyte % 35.1 % (19-41); Mean Corp Hgb Conc 33.7 g/dL (32-36); Mean Corpuscular Hgb 30.3 pg (27.0-32.0); Mean Corpuscular Volume 90.2 fL (81-99); Mean Platelet Vol. 9.6 fl (6.2-12.0); Monocyte# 0.59 X10^3/uL; Monocyte% 7.8 % (0-10); NRBC Flagged by Analyzer 0 % (0-5); Neutrophil # 3.94 X10^3/uL (2.7-7.7); Neutrophil % 52.1 % (47-70); Platelet Count 255 K/mm3 (150-450); RBC Distribution Width CV 13.4 % (11.6-14.6); RBC Distribution Width SD 44.2 fl (35.1-43.9); Red Blood Count 4.58 M/mm3 (4.2-5.4); White Blood Count 7.6 K/mm3 (4.4-11.0)
--- NOTE | 2022-06-18 04:40 | RAD_ITS ---
INDICATION: Palpitations EXAMINATION/TECHNIQUE: X-RAY - XR Chest 1 View COMPARISON: Chest x-ray from 07/11/2021 FINDINGS: LINES/DEVICES: None. LUNGS: No pulmonary edema or focal airspace consolidation. No sizable pleural effusion. No pneumothorax detected. MEDIASTINUM AND CARDIOVASCULAR STRUCTURES: Heart size within normal limits. Atherosclerotic calcifications along aorta. BONES AND SOFT TISSUES: Skeletal degenerative changes. RAD/Chest 1 View (Portable) IMPRESSION: No radiographic evidence of acute cardiopulmonary disease. Electronically Signed: Josué Hernandez MD at 4:52 EST ,
[2022-06-18 04:59] LABS: Anion Gap 8 (5-15); BUN 12 mg/dL (7-18); BUN/Creat Ratio 13.9 RATIO (10-20); Calcium,Total 8.7 mg/dL (8.5-10.1); Chloride 104 mmol/L (98-107); Creatinine, Serum 0.87 mg/dL (0.55-1.02); EST Glomerular Filtration Rate 69 mL/min (>60); Est Glom Filt Rate - Afr Amer 84 mL/min (>60); Estimated Creatinine Clearance 51.91 ml/min; Glucose 100 mg/dL (74-106); Magnesium 2.2 mg/dL (1.6-2.6); Sodium Level 139 mmol/L (136-145); Thyroid Stim Hormone (TSH) 7.28 uIU/mL (0.358-3.74); Troponin-I HS 7 pg/mL (3.0-54.0)
--- NOTE | 2022-06-18 05:30 | EDS_ITS ---
HPI History of Present Illness Chief Complaint: Chest Pain Narrative Narrative: Patient is a 66-year-old female with past medical history of anxiety depression and schizophrenia. She states that for approximately 2 hours prior to arrival she felt like her heart was racing and that her blood pressure was greatly elevated. She states however that spite feeling this way she did not check her blood pressure or her pulse rate. She states that she feels like symptoms have improved upon arrival to the ER. She denies any new or change to her medication. She denies any excessive stimulant use or illicit drug use. She states she was concerned that she could be having heart damage based on her symptoms and secondary to this called EMS to bring her in for evaluation [facility] Medical History Anxiety Depression Schizophrenia Home Medications fluphenazine HCl 1 mg tablet 5 mg PO DAILY 06/20/15 [History Last Taken Unknown] Fluphenazine Decanoate 1 dose IM .Q2 WEEKS 06/16/18 [History Last Taken Unknown] mczqbxltqxtt-zylccudw-ihsirhn-folic acid 400 mcg-vit K1 20 mcg tablet (One-A-Day Women's 50 Plus) 1 ea PO DAILY 06/16/18 [History Last Taken Unknown] metoprolol succinate 25 mg tablet,extended release 24 hr 25 mg PO DAILY 07/11/21 [History Last Taken Unknown] Allergy/AdvReac Type Severity Reaction Status Date / Time cat dander Allergy Itching Verified 06/18/22 03:56 Environmental Allergies: Allergy Itching Verified 06/18/22 03:56 Uncoded [dust] amoxicillin AdvReac Unknown Verified 06/18/22 03:56 aspirin AdvReac Nausea/Vom/ Verified 06/18/22 03:56 Diarrhea Social History Smoking Status: Never smoker ROS [facility] ED Constitutional Constitutional ED: Denies chills or fever(s) Eyes Eyes: Denies change in vision ENT ENT ED: Denies sore throat Cardiovascular Cardiovascular: Reports chest pain, palpitations and racing heartbeat Respiratory/Chest Respiratory/Chest: Denies cough or dyspnea Gastrointestinal Gastrointestinal: Denies abdominal pain, diarrhea, nausea or vomiting Genitourinary Genitourinary ED: Denies dysuria Musculoskeletal Musculoskeletal: Denies myalgias Integumentary Denies rash Neurologic Neurologic: Denies headache(s) Hematologic/Lymphatic Hematologic/Lymphatic: Denies easy bleeding or easy bruising EXAM Physical Exam Const Vital Signs: 06/18/22 03:53 06/18/22 04:08 06/18/22 05:48 Temperature 97.0 F L Temperature Source Temporal Pulse Rate 70 67 Respiratory Rate 25 H 14 Respiratory Effort Normal Respiratory Pattern Normal Blood Pressure 158/104 H 157/80 H Blood Pressure Mean 122 105 Pulse Ox 98 95 Oxygen Delivery Method Room Air Room Air Positive well nourished and well developed General Appearance ED: well developed HEENT Reports moist mucous membranes Eyes PERRL and EOMs intact bilaterally Neck supple Neck Narrative: Thyroid is without nodule or goiter Chest Wall palpation of chest normal Chest Narrative: No pain on palpation no bony deformity or crepitance noted Resp normal respiratory effort and clear to auscultation bilaterally Cardio regular rate and regular rhythm Rate: other Other Details: Radial pulses are plus 2 out of 4 bilaterally are equal and symmetric Carotid pulses equal and symmetric as well GI normal to inspection, nondistended, normoactive bowel sounds, non-tender, non-distended and no masses GI Narrative: No voluntary guarding or rigidity. No pulsatile mass or fluid wave Auscultation: normoactive bowel sounds Palpation: soft Extremity normal to inspection Extremity Narrative: No asymmetric edema no pitting edema negative Homans' sign bilaterally Neuro oriented x3 and CN's II-XII intact bilaterally Sensorium / Orientation: alert Psych Psych Narrative: Patient has a flat affect Skin no rashes or lesions noted MDM MDM MDM Narrative Medical decision making narrative: Patient presented to the ER mildly hypertensive but otherwise in no acute distress. She reported feeling like her heart was racing and her blood pressure spiked but did not take these values at home. With her symptoms of palpitation I did elect to perform a basic cardiac work-up and keep her on a campus monitor to check for any possible cardiac dysrhythmia. Blood work showed no signs of acute kidney injury no severe electrolyte derangement no anemia and no signs of cardiac damage. The monitor showed just normal sinus rhythm without cardiac dysrhythmia. Chest x-ray revealed no acute lung pathology. Therefore at this time as work-up is not showing signs of active CAD acute kidney injury anemia electrolyte disturbance or infectious process such as pneumonia or pneumothorax as a cause of her symptoms she is otherwise safe for discharge Lab Data Attestation: I reviewed the patient's lab results. Labs: Laboratory Results - last 24 hr 06/18/22 06/18/22 06/18/22 03:58 03:58 06:15 WBC 7.6 RBC 4.58 Hgb 13.9 Hct 41.3 MCV 90.2 MCH 30.3 MCHC 33.7 RDW Std Deviation 44.2 H RDW Coeff of Laith 13.4 Plt Count 255 MPV 9.6 Immature Gran % (Auto) 0.300 Neut % (Auto) 52.1 Lymph % (Auto) 35.1 [place] % (Auto) 7.8 Eos % (Auto) 4.2 Baso % (Auto) 0.5 Absolute Neuts (auto) 3.9 Absolute Lymphs (auto) 2.65 Nucleated RBC % 0 Sodium 139 Potassium 4.0 Chloride 104 Carbon Dioxide 27.0 Anion Gap 8 BUN 12 Creatinine 0.87 Estim Creat Clear Calc 51.91 Est GFR (MDRD) Af Amer 84 Est GFR (MDRD) Non-Af 69 BUN/Creatinine Ratio 13.9 Glucose 100 Calcium 8.7 Magnesium 2.2 Troponin I High Sens 7 8 TSH 7.28 H Radiography Diagnostic Testing: Clinical Impression(s) from Imaging Studies Chest X-Ray 06/18/22 04:40 IMPRESSION: No radiographic evidence of acute cardiopulmonary disease. Electronically Signed: Josué Hernandez MD at 4:52 EST , Chest x-ray as interpreted by the emergency medicine physician reveals no acute infiltrate pneumothorax or pleural effusion Discharge Plan Triage Chief Complaint: Chest Pain ED Provider: Chip Matamoros Dx/Rx/DC Orders Clinical Impression: Heart palpitations, Hypertension Prescriptions: No Action fluphenazine HCl 1 MG tablet 5 mg PO DAILY One-A-Day Women's 50 Plus 1 EACH tablet 1 ea PO DAILY Fluphenazine Decanoate 1 dose IM .Q2 WEEKS Rx Instructions: PT DOES NOT KNOW DOSE OF SHOT SHE TAKES metoprolol succinate 25 mg tablet extended release 24 hr 25 mg PO DAILY Primary Care Provider: Paty Linder NP Referrals: Paty Linder NP, [employer] [Primary Care Provider] - Activity Restrictions/Additional Instructions: Your work-up today showed no sign of heart damage or abnormal heart rhythm. Stay on your medication as directed by your doctor and return to the ER should you have any further concerns Disposition Disposition: Home, Self Care
[2022-06-18 05:48] VITALS: BP 157/80; PULSE 67; RESP 14; O2SAT 95
[2022-06-18 06:42] LABS: Troponin-I HS 8 pg/mL (3.0-54.0)
[2022-06-18 06:44] VITALS: BP 135/90; PULSE 65; RESP 17; O2SAT 97
== END 2022-06-18 06:57 | disposition home or self-care (01) ==
PROVIDERS: Emergency Provider Emergency Medicine; PCP Nurse Practitioner Primary Care; Visit Provider Emergency Medicine
DX: R00.2 Palpitations (principal); F20.9 Schizophrenia, unspecified; I10 Essential (primary) hypertension; F41.9 Anxiety disorder, unspecified; R07.9 Chest pain, unspecified
CPT/HCPCS: 71045; 80048; 83735; 84443; 84484; 85025; 93005; 99285; A4216

== ENCOUNTER 2022-12-27 20:52 | Emergency (ER) | payer MEDICARE, MEDICAID, SELFPAY ==
[2022-12-27 20:53] VITALS: BP 150/87; PULSE 78; RESP 16; TEMP 36.6; O2SAT 100
[2022-12-27 21:02] VITALS: BMI 27.3
--- NOTE | 2022-12-27 21:15 | RAD_ITS ---
STUDY: X-RAY - RIGHT ANKLE REASON FOR EXAM: Female, 67 years old. Injury and pain TECHNIQUE: 3 view(s) of the ankle. COMPARISON: None. FINDINGS: Normal visualized distal tibia and fibula. Normal medial and lateral malleoli. Normal tibiotalar articulation and ankle mortise. Normal visualized talus. Tiny plantar calcaneal spur The visualized subtalar, talonavicular, calcaneocuboid and tarsal articulations are normal. The soft tissue structures are unremarkable. RAD/Ankle min 3 Views IMPRESSION: No evidence for acute fracture or dislocation. Electronically Signed: Joaquín Garcia MD at 22:07 EDT ,
--- NOTE | 2022-12-27 21:15 | RAD_ITS ---
STUDY: X-RAY - RIGHT FOOT CLINICAL: Female, 67 years old. injury and pain TECHNIQUE: 3 view(s) of the foot. COMPARISON: None. FINDINGS: ,.. Tiny acute avulsion fracture of the cortex of the distal lateral talus with mild separation of fracture fragments. Small plantar calcaneal spur Normal visualized subtalar, talonavicular, calcaneocuboid, tarsal and tarsometatarsal articulations. Normal metatarsi. Normal metatarsophalangeal joint of the great toe. Normal tibial and fibular sesamoid bones. Normal interphalangeal joint of the great toe. Normal phalanges of the great toe. Normal second through fifth metatarsophalangeal joints. Normal interphalangeal joints and phalanges of the lesser toes. Soft tissue swelling of the lateral aspect of the hindfoot. RAD/Foot min 3 Views IMPRESSION: Tiny acute cortical avulsion fracture of the distal lateral talus with mild separation of fracture fragments. Electronically Signed: Joaquín Garcia MD at 22:05 EDT ,
--- NOTE | 2022-12-27 21:26 | ED.VIS.LOWEX ---
HPI History of Present Illness Chief Complaint: Lower Extremity Injury Informant: patient and legal guardian Onset/Context/Timing Onset: Today Narrative Narrative: 67-year-old female sustained a fall today injuring her right foot and ankle. Patient was able to use crutches and bear some weight. She notes she is not on any blood thinners. She denies any other significant injuries. She notes some slight swelling of the foot and ankle laterally. [facility] Medical History Anxiety Depression Hypertension Schizophrenia Home Medications Fluphenazine Decanoate 1 dose IM .Q2 WEEKS 06/16/18 [History Last Taken Unknown] lpkailwbvqdb-fjnbnxvp-vnyjrdj-folic acid 400 mcg-vit K1 20 mcg tablet (One-A-Day Women's 50 Plus) 1 ea PO DAILY 06/16/18 [History Last Taken Unknown] metoprolol succinate 25 mg tablet,extended release 24 hr 25 mg PO DAILY 07/11/21 [History Last Taken Unknown] Allergy/AdvReac Type Severity Reaction Status Date / Time cat dander Allergy Itching Verified 12/27/22 20:55 house dust Allergy Itching Verified 12/27/22 20:55 amoxicillin AdvReac Unknown Verified 12/27/22 20:55 aspirin AdvReac Nausea/Vom/ Verified 12/27/22 20:55 Diarrhea Social History (Updated 12/27/22 @ 21:[address] Joseph Moore DO) current gender identity: female Smoking Status: Never smoker ROS ROS ED Constitutional Constitutional ED: Denies chills or weight loss Eyes Eyes: Denies change in vision or diplopia ENT ENT ED: Denies ear pain, rhinorrhea or sore throat Cardiovascular Cardiovascular: Denies chest pain, orthopnea, palpitations or racing heartbeat Respiratory/Chest Respiratory/Chest: Denies cough, dyspnea or orthopnea Gastrointestinal Gastrointestinal: Denies abdominal pain, diarrhea, nausea or vomiting Genitourinary Genitourinary ED: Denies dysuria, hematuria or urinary frequency Musculoskeletal Musculoskeletal: Reports other Details: Right foot and ankle pain ; Denies arthralgias or myalgias Integumentary Denies abscess or rash Neurologic Neurologic: Denies headache(s) or weakness Psychiatric Psychiatric: Denies anxiety, depression, suicidal ideation or suicidal thoughts Endocrine Endocrinology: Denies polydipsia, polyphagia or polyuria Allergic/Immunologic Allergic/Immunologic ED: Denies mouth swelling, tongue swelling or urticaria EXAM Physical Exam Const Vital Signs: 12/27/22 20:53 Temperature 97.8 F Temperature Source Temporal Pulse Rate 78 Respiratory Rate 16 Blood Pressure 150/87 H Blood Pressure Mean 108 Pulse Ox 100 Oxygen Delivery Method Room Air Positive well nourished and well developed General Appearance ED: well developed HEENT Reports normocephalic, head/scalp atraumatic and moist mucous membranes Eyes PERRL and EOMs intact bilaterally Neck no lymphadenopathy, supple and no JVD Resp normal respiratory effort and clear to auscultation bilaterally Cardio regular rate, regular rhythm and no murmurs GI normal to inspection, nondistended, normoactive bowel sounds and non-tender Palpation: soft Back/Spine no CVA tenderness and normal ROM Extremity Extremity Narrative: There is swelling and ecchymosis over the dorsum of the lateral right foot. This extends up to the anterior inferior aspect of the lateral malleolus. The fifth metatarsal is nontender. The lateral malleolus is nontender as is the posterior and medial malleolus. There is no tenderness to the fibular head. Patient does not complain of any tenderness along the bottom of the right foot. Neurovascularly intact. General Extremety ED: Negative for edema General Extremity: Negative for edema Neuro oriented x3 and CN's II-XII intact bilaterally Sensorium / Orientation: alert Motor Exam: strength 5/5 throughout Psych mental status grossly normal Mood & Affect: Negative for depressed or tearful Skin no rashes or lesions noted and no wounds MDM MDM MDM Narrative Medical decision making narrative: X-rays of the right foot and ankle were obtained. My interpretation of the plain films is that there is no acute fracture and that there are calcifications that appear chronic in the midfoot region. The allergies read is a tiny acute cortical avulsion fracture of the distal lateral talus. She is swollen and tender here but this would also go along with an ankle sprain. Management amaya I believe is about the same. Will place her in an air splint and get her a walker. Would recommend that she continue to ice and elevate it. And have her follow-up in 1 week. She would most likely require several weeks to heal even if this is a sprain or a small avulsion fracture I believe the treatment is conservative. Radiography Diagnostic Testing: Clinical Impression(s) from Imaging Studies Foot X-Ray 12/27/22 21:15 IMPRESSION: Tiny acute cortical avulsion fracture of the distal lateral talus with mild separation of fracture fragments. Electronically Signed: Joaquín Garcia MD at 22:05 EDT , Discharge Plan Triage Chief Complaint: Lower Extremity Injury ED Provider: Joseph Moore Dx/Rx/DC Orders Clinical Impression: Right ankle sprain, Right foot sprain Instructions: ED Foot Sprain, ED Ankle Sprain (Adult) Prescriptions: No Action One-A-Day Women's 50 Plus 1 EACH tablet 1 ea PO DAILY Fluphenazine Decanoate 1 dose IM .Q2 WEEKS Rx Instructions: PT DOES NOT KNOW DOSE OF SHOT SHE TAKES metoprolol succinate 25 mg tablet extended release 24 hr 25 mg PO DAILY Primary Care Provider: Paty Linder NP Referrals: Paty Linder NP, [employer] [Primary Care Provider] - 1 Week Disposition Disposition: Home, Self Care
== END 2022-12-27 22:37 | disposition home or self-care (01) ==
PROVIDERS: Emergency Provider Emergency Medicine; PCP Nurse Practitioner Primary Care; Visit Provider Emergency Medicine
DX: S93.401A Sprain of unspecified ligament of right ankle, initial encounter (principal); I10 Essential (primary) hypertension; W19.XXXA Unspecified fall, initial encounter; Z79.899 Other long term (current) drug therapy
CPT/HCPCS: 73610; 73630; 99284

== ENCOUNTER 2023-07-25 15:27 | Emergency (ER) | payer MEDICARE, MEDICAID, SELFPAY ==
[2023-07-25] VITALS (8 sets, daily range): BP systolic 141–149; BP diastolic 68–76; PULSE 60–85; RESP 15–19; TEMP 36.2–37.1; O2SAT 94–99; BMI 26.4
--- NOTE | 2023-07-25 16:08 | ED.RN ---
Pt does not want brother in room. Brother is insisting that he speak with the dr. pt states that she is from [place] and she left her home a week ago i didnt want to be there . pt states that she has been staying with a male friend in a car and they drove here and that last night/early this morning she was able to get into the [employer] store and get warm . pt states that her male friend does own his own home. pt states that her name is molly hdez, she knows that the year is 2023.
--- NOTE | 2023-07-25 16:16 | EX.ED.DYSGE1 ---
HPI History of Present Illness Chief Complaint: Mental Health Informant: patient Narrative Narrative: Patient brought in by police for mental health evaluation. She is found wandering around town. Reported the police was able to get a hold of a brother potentially, he has not seen the patient. They brought her here for evaluation. However patient reports to me the name on her name tag is not her as Eloisa Werner. She states her name is Keshawn Hightower date of February 25, 1958. Reported there was a gentleman in the waiting room that is her brother, she states she has no family here. She is from [facility]. She left her apartment a week ago with another individual they drove around for 6 days, they came down here, the individual left her, she states at 4 in the morning she was able to get into the [employer] store to stay warm. She states history of hypertension and she takes vitamins no hypertension medications. Denies any psychiatric history. She does report at times hearing voices, denies suicidal or homicidal ideations. Denies visual hallucinations. [facility] Medical History Anxiety Depression Hypertension Schizophrenia Home Medications lggkjvhaymrz-vjbfpftk-iigjspa-folic acid 400 mcg-vit K1 20 mcg tablet (One-A-Day Women's 50 Plus) 1 ea PO DAILY 06/16/18 [History Last Taken Unknown] metoprolol succinate 25 mg tablet,extended release 24 hr 25 mg PO DAILY 07/11/21 [History Last Taken Unknown] Allergy/AdvReac Type Severity Reaction Status Date / Time cat dander Allergy Itching Verified 12/27/22 20:55 house dust Allergy Itching Verified 12/27/22 20:55 amoxicillin AdvReac Unknown Verified 12/27/22 20:55 aspirin AdvReac Nausea/Vom/ Verified 12/27/22 20:55 Diarrhea Social History (Updated 12/27/22 @ 21:[address] Joseph Moore DO) Smoking Status: Never smoker ROS ROS ED Constitutional Constitutional ED: Denies chills, fever(s) or sweats Eyes Eyes: Denies change in vision ENT ENT ED: Denies dysphagia or sore throat Cardiovascular Cardiovascular: Denies chest pain, leg edema, palpitations or racing heartbeat Respiratory/Chest Respiratory/Chest: Denies cough, dyspnea or dyspnea on exertion Gastrointestinal Gastrointestinal: Denies abdominal pain, diarrhea, nausea or vomiting Genitourinary Genitourinary ED: Denies dysuria, hematuria or urinary frequency Musculoskeletal Musculoskeletal: Denies back pain, extremity pain or neck pain Integumentary Denies rash or wounds Neurologic Neurologic: Denies headache(s), paresthesias or weakness Psychiatric Psychiatric: Reports other Details: Auditory hallucinations, denies visual hallucinations, denies suicidal or homicidal ideations. EXAM Physical Exam Const Vital Signs: 07/25/23 15:39 07/25/23 17:01 07/25/23 22:13 Temperature 97.2 F L Temperature Source Temporal Pulse Rate 80 79 60 Respiratory Rate 18 16 16 Blood Pressure 145/75 H 142/76 H 141/68 H Blood Pressure Mean 98 98 92 Pulse Ox 98 98 97 Oxygen Delivery Method Room Air Room Air Room Air MDM MDM MDM Narrative Medical decision making narrative: Interventions / MDM: Differential diagnosis: Diagnosis considered but do not suspect: N/A My EKG interpretation: N/A Imaging independently reviewed and interpreted by myself: N/A External documents reviewed: N/A Test considered but not ordered:N/A ED course: Patient knew clearly the place and year along with dates. She reported her name is Keshawn Hightower date of February 25, 1958. She is not intoxicated. She declines individual in the waiting room to, identify her if this is really her. She states her identification is in [facility] at her apartment. At this time we will have to treat her as a Krystal Busby, please will be involved for identification. 1640: Please was in the room, the obtained picture from body cam, they discussed with the individual in the waiting room, confirming that this patient is Eloisa Werner. I spoke with her brother Moe, she stays at [facility], he did talk to the facility, they did not know when she last left. Confirm she was not at the facility overnight. He last spoke to her 2 days ago at the facility through her landline. She was getting a medication injection change today to try to help with intermittent tremors. This time concerns for safety with her wandering away. She confirms schizophrenia history. She did report auditory hallucinations. Will get medical clearance labs and have evaluation by crisis. 0051: Patient has been medically cleared. She is seen by crisis in the emergency department. They do feel she will warrant transfer inpatient treatment for safety concerns with schizophrenia. [facility]ms slip was filled out, pending placement at this time. Re-evaluation: stable Disposition discussed with patient/family/significant other: Case discussed with consulting clinician: Crisis counselor This note was generated with [employer] dictation software. It may contain incorrect words, spelling, and punctuation that were not noted in checking the note before signing. Lab Data Attestation: I reviewed the patient's lab results. Labs: Laboratory Results - last 24 hr 07/25/23 07/25/23 17:15 17:25 WBC 10.0 RBC 4.36 Hgb 13.1 Hct 39.9 MCV 91.5 MCH 30.0 MCHC 32.8 RDW Std Deviation 46.2 H RDW Coeff of Laith 13.7 Plt Count 280 MPV 9.5 Immature Gran % (Auto) 0.400 Neut % (Auto) 64.7 Lymph % (Auto) 25.4 [place] % (Auto) 7.5 Eos % (Auto) 1.5 Baso % (Auto) 0.5 Absolute Neuts (auto) 6.5 Absolute Lymphs (auto) 2.55 Nucleated RBC % 0 Sodium 137 Potassium 4.0 Chloride 106 Carbon Dioxide 29.0 Anion Gap 2 L BUN 12 Creatinine 0.77 Est GFR (MDRD) Af Amer 95 Est GFR (MDRD) Non-Af 79 BUN/Creatinine Ratio 15.5 Glucose 79 Calcium 9.2 Serum , Qual NEGATIVE Urine Opiates Screen NEGATIVE Urine Methadone Screen NEGATIVE Ur Barbiturates Screen NEGATIVE Ur Phencyclidine Scrn NEGATIVE Ur Amphetamines Screen NEGATIVE MDMA (Ecstasy) Screen NEGATIVE U Benzodiazepines Scrn NEGATIVE Urine Cocaine Screen NEGATIVE U Cannabinoids Screen NEGATIVE Ur Drug Screen Comment Ethyl Alcohol < 3.0 Discharge Plan Triage Chief Complaint: Mental Health ED Provider: Oziel Vincent Dx/Rx/DC Orders Clinical Impression: Schizophrenia, Behavior disorder Prescriptions: No Action One-A-Day Women's 50 Plus 1 EACH tablet 1 ea PO DAILY metoprolol succinate 25 mg tablet extended release 24 hr 25 mg PO DAILY Primary Care Provider: Paty Linder NP Referrals: Paty Linder NP, [employer] [Primary Care Provider] - Disposition Disposition: Psychiatric Hospital or Unit
--- NOTE | 2023-07-25 16:34 | ED.RN ---
dr posada concerned that the pt may be telling the truth that her name is molly hdez from [place] [facility] and that she does not know the man in the waiting room. dr posada requesting daniel key be involved. dispatched called by charge nurse, they were familar with the individual milagros garcia. daniel key officer arrived and varied that the pt is indeed milagros garcia and is going to speak with the brother.
[2023-07-25 17:45] LABS: Amphetamine Urine VISTA NEGATIVE (<1000 ng/mL); Barbiturate Urine VISTA NEGATIVE (< 200 ng/mL); Benzodiazepine Urine VISTA NEGATIVE (< 200 ng/mL); Cocaine Urine VISTA NEGATIVE (< 300 ng/mL); Ecstacy Urine VISTA NEGATIVE (< 500 ng/mL); Methadone Urine VISTA NEGATIVE (< 300 ng/mL); PCP Urine VISTA NEGATIVE (< 25 ng/mL); THC Urine VISTA NEGATIVE (< 50 ng/mL); Vista UDS pH Range 5
[2023-07-25 17:53] LABS: Absolute Lymphocyte Count 2.55 X10^3/uL (0.83-4.51); Absolute Neutrophil Count 6.5 X10^3/uL (2.0-7.7); Basophil# 0.05 X10^3/uL; Basophil% 0.5 % (0-1); Eosinophil# 0.15 X10^3/uL; Eosinophils% 1.5 % (0-5); Hematocrit 39.9 % (37-47); Hemoglobin 13.1 g/dL (12.0-15.0); Lymphocyte # 2.55 X10^3/ul (0.83-4.51); Lymphocyte % 25.4 % (19-41); Mean Corp Hgb Conc 32.8 g/dL (32-36); Mean Corpuscular Volume 91.5 fL (81-99); Mean Platelet Vol. 9.5 fl (6.2-12.0); Monocyte# 0.75 X10^3/uL; Monocyte% 7.5 % (0-10); NRBC Flagged by Analyzer 0 % (0-5); Neutrophil # 6.49 X10^3/uL (2.7-7.7); Neutrophil % 64.7 % (47-70); Platelet Count 280 K/mm3 (150-450); RBC Distribution Width CV 13.7 % (11.6-14.6); RBC Distribution Width SD 46.2 fl (35.1-43.9); Red Blood Count 4.36 M/mm3 (4.2-5.4)
[2023-07-25 18:07] LABS: Anion Gap 2 (5-15); BUN 12 mg/dL (7-18); BUN/Creat Ratio 15.5 RATIO (10-20); Calcium,Total 9.2 mg/dL (8.5-10.1); Chloride 106 mmol/L (98-107); Creatinine, Serum 0.77 mg/dL (0.55-1.02); EST Glomerular Filtration Rate 79 mL/min (>60); Est Glom Filt Rate - Afr Amer 95 mL/min (>60); Glucose 79 mg/dL (74-106); Sodium Level 137 mmol/L (136-145)
[2023-07-25 18:13] LABS: Internal QC Validated? YES +Cl - CLEAR BKGD; Pregnancy, Serum, hCG Quali. NEGATIVE Negative
[2023-07-25 18:15] LABS: Alcohol, Blood (Medical)-Serum < 3.0 mg/dL
--- NOTE | 2023-07-25 19:12 | ED.RN ---
Crisis called and spoke with this RN regarding the patient and her mental status. This RN informed her that she was referring to herself as Keshawn Hightower and denies taking her medicine. Crisis stated they would be in to see her soon.
--- OUTSIDE RECORDS SUMMARY | 2023-07-25 20:04 | XMS RPT_ITS | CCD ---
Author Name Unknown Address [address] [place] [address] Organization [facility] Care Team Providers Care Physician Vice President Name Role Phone Unavailable Primary Care Provider Unavailluzmaria e JOSE LOPEZ-BAYRON ESPARZA Primary Care Physicia n BAYRON VERA Attending Unava ilBAYRON Lozano Primary Care Carova ilable BAYRON ARRIAGA Attending Unavailable TESTRAKE, KERRIE Referring Unavailable TESTRAKE, KERRIE Referring Unavailable Aaron'KOFFIBAYRON HAYWARD Attending Unavailable TESTRAKE, KERRIE Referring Unavailable TESTRAKE, KERRIE Attending Unavailable Allergies Allergy Classification Reported Allergen(s) Allergy Type Date of Onset Reaction(s) Facility (9 sources) Aspirin; Translations: [aspirin] Drug Allergy 05-03-2019 Vomiting, Vomiting (disorder) [facility] Medications Current Medications Medication Drug Class(es) Dates Sig (Normalized) Sig (Original) Daily Christinao oral tablet (1 source) Start: 07-01-2022 End: 06-26-2023 take 1 tablet by mouth once daily Daily Christiano oral tablet Dose = 1 tab(s), Oral, qDay, # 90 tab(s), 3 Refill(s), Pharmacy: [facility], 160, cm, 07/01/22 14:00:00 EST, Height, kg, 07/01/22 14:00:00 EST, Dosing Weight Start Date: 07/01/22 Stop Date: 06/26/23 Status: Ordered fluPHENAZine (8 sources) Phenothiazine Start: 04-30-2019 fluPHENAZine Intramuscular, q2wk, 0 Refill(s) Start Date: 04/30/19 Status: Ordered Completed/Discontinued Medications Medication Drug Class(es) Dates Sig (Normalized) Sig (Original) ibuprofen 200 mg oral capsule (6 sources) Nonsteroidal Anti-inflammatory Drug Ibuprofen 200 mg cap Take by mouth every 6 hours as needed for pain. 0 Active Problems Problem Classification Problem Date Documented Date Episodic/Chronic Essential hypertension (1 source) Benign essential hypertension 03-10-2023 Chronic Other circulatory disease (1 source) Elevated blood pressure 02-06-2020 Episodic Other ear and sense organ disorders (1 source) Impacted cerumen 03-10-2023 Episodic Other nervous system disorders (1 source) Tremor 04-11-2019 Episodic Other non-traumatic joint disorders (1 source) Arthralgia of the ankle and/or foot; Translations: [Pain in right ankle and joints of right foot] 01-10-2023 Episodic Other non-traumatic joint disorders (1 source) Pain in right ankle and joints of right foot; Translations: [Pain in joint involving right ankle and foot] Onset: 01-10-2023 Episodic Other skin disorders (1 source) Keratosis; Translations: [Epidermal thickening, unspecified] Episodic Other upper respiratory disease (1 source) Allergic rhinitis 01-23-2020 Chronic Residual codes; unclassified (1 source) History of chest pain 07-23-2021 Episodic Schizophrenia and other psychotic disorders (1 source) Schizophrenia 04-12-2019 Chronic Sprains and strains (20 sources) Sprain of talofibular ligament of right ankle; Translations: [Sprain of other ligament of right ankle, initial encounter] Onset: 05-21-2019 05-21-2019 Episodic Unclassified (1 source) Long-term current use of antipsychotic medication 04-12-2019 Unclassified (3 sources) Patient encounter status 03-10-2023 Varicose veins of lower extremity (1 source) Varicose veins of lower extremity 02-11-2021 Episodic Results Test Name Value Interpretation Reference Range Facil ity Encounters Encounter Date Encounter Type Care Provider Facility Start: 03-10-2023 End: 03-11-2023 ambulatory BAYRON GARCIA RIPPLER-WEB DEVELOPMENT MANAGER Facility:[facility] Start: 03-10-2023 End: 03-10-2023 Patient encounter procedure BAYRON GARCIA RIPPL[employer]-WEB DEVELOPMENT MANAGER [facility] Start: 03-04-2023 End: 03-04-2023 ambulatory BAYRON ARRIAGA Facility:[facility] [place] Start: 03-04-2023 End: 03-04-2023 ambulatory Bayron Arriaga PT [facility] Physical Therapy Plan of Treatment Date Care Activity Detail Author Start: 01-21-2023 Covid-19 Vaccine ( season) Covid-19 Vaccine ( season) [facility] Start: 01-21-2023 Influenza vaccination [facility] Start: 07-23-2022 COVID-19 VACCINE (5 - Moderna series) COVID-19 VACCINE (5 - Moderna series) [facility] Start: 05-23-2022 ADVANCE DIRECTIVE DISCUSSION ADVANCE DIRECTIVE DISCUSSION [facility] Start: 05-23-2022 DEPRESSION ASSESSMENT DEPRESSION ASSESSMENT [facility] Start: 01-21-2022 Influenza vaccination INFLUENZA (#1) [facility] Start: 09-25-2021 COVID-19 VACCINE (4 - Booster for Moderna series) COVID-19 VACCINE (4 - Booster for Moderna series) [facility] Start: 05-23-2021 ADVANCE DIRECTIVE DISCUSSION ADVANCE DIRECTIVE DISCUSSION [facility] Start: 11-02-2019 BONE DENSITY BONE DENSITY [facility] Start: 11-02-2019 Bone Density Screening Bone Density Screening [facility] Start: 11-02-2019 Pneumococcal Vaccine: 65+ (1 - PCV) Pneumococcal Vaccine: 65+ (1 - PCV) [facility] Start: 11-02-2019 PNEUMOCOCCAL: 65+ (1 - PCV) PNEUMOCOCCAL: 65+ (1 - PCV) [facility] Start: 2014 RSV Vaccine (1 - 1-dose 60+ series) RSV Vaccine (1 - 1-dose 60+ series) [facility] Start: 2004 SHINGRIX VACCINE (1 of 2) SHINGRIX VACCINE (1 of 2) [facility] Start: 11-02-1999 COLOGUARD (FIT-DNA) COLOGUARD (FIT-DNA) [facility] Start: 11-02-1999 Colonoscopy COLONOSCOPY [facility] Start: 11-02-1999 COLORECTAL CANCER SCREENING COLORECTAL CANCER SCREENING [facility] Start: 11-02-[address] COLONOGRAPHY [facility] Start: 11-02-1999 DIABETES SCREEN DIABETES SCREEN [facility] Start: 11-02-1999 Diabetes Screening Diabetes Screening [facility] Start: 11-02-1999 FECAL OCCULT BLOOD FECAL OCCULT BLOOD [facility] Start: 11-02-1999 Lipid 1996 panel - Serum or Plasma Lipid Screening [facility] Start: 11-02-1999 LIPID SCREEN LIPID SCREEN [facility] Start: 11-02-1999 SIGMOIDOSCOPY SIGMOIDOSCOPY [facility] Start: 1994 Mammography [facility] Start: 1973 Urine microalbumin profile [facility] Start: 1972 HEPATITIS C SCREENING HEPATITIS C SCREENING [facility] Start: 1966 Adult depression screening assessment DEPRESSION SCREENING [facility] End: 02-09-2024 XR ANKLE GENERAL 3V AP/LAT/OBL RIGHT XR ANKLE GENERAL 3V AP/LAT/OBL RIGHT Radiology Routine Pain in joint involving right ankle and foot 1 Occurrences starting 01/10/2023 until 02/09/2024 [facility] Work Phone: Immunizations Immunization Date Immunization Notes Care Provider July olivares 03-10-2023 influenza, high dose seasonal, preservative-free; Translations: [Fluad Quadrivalent PF ] BAYRON GARCIA RIPPLER-WEB DEVELOPMENT MANAGER [facility] 05-07-2022 influenza virus vaccine, unspecified formulation Bayron Arriaga PT [facility] 03-25-2022 SARS-CoV-2 (CV19)mRNA-1273 bivalent vac BAYRON GARCIA RIPPL[employer]WEB DEVELOPMENT MANAGER [facility] 08-24-2021 zoster vaccine recombinant BAYRON GARCIA RIPPL[employer]WEB DEVELOPMENT MANAGER [facility] 06-15-2021 zoster vaccine recombinant BAYRON GARCIA RIPPLER[employer]WEB DEVELOPMENT MANAGER [facility] 05-28-2021 influenza virus vaccine, unspecified formulation BAYRON GARCIA RIPPLER-WEB DEVELOPMENT MANAGER [facility] 05-28-2021 SARS-CoV-2 (COVID-19 ) mRNA-1273 vaccine BAYRON GARCIA RIPPLER-WEB DEVELOPMENT MANAGER [facility] 08-14-2020 COVID-19, mRNA, LNP- S, PF, 100 mcg or 50 mcg dose; Translations: [Moderna COVID-19 Vaccine] BAYRON PINEDAMER RIPPLER-WEB DEVELOPMENT MANAGER [facility] 07-17-2020 COVID-19, mRNA, LNP- S, PF, 100 mcg or 50 mcg dose; Translations: [Moderna COVID-19 Vaccine] BAYRON JOSE RIPPLER-WEB DEVELOPMENT MANAGER [facility] 03-31-2020 influenza virus vaccine, unspecified formulation BAYRON JOSE RIPPLER-WEB DEVELOPMENT MANAGER [facility] 02-28-2019 influenza virus vaccine, unspecified formulation BAYRON JOSE RIPPLER-WEB DEVELOPMENT MANAGER [facility] 06-17-2018 tetanus toxoid, redu donna diphtheria toxoid, and acellular pertussis vaccine, adsorbed BAYRON PINEDAMER RIPPLER-WEB DEVELOPMENT MANAGER [facility] 04-10-2014 influenza virus vaccine, unspecified formulation BAYRON PINEDAMER RIPPLER-WEB DEVELOPMENT MANAGER [facility] 04-17-2013 zoster vaccine, live BAYRON PINEDAMER RIPPLER-WEB DEVELOPMENT MANAGER [facility] 07-27-2012 tetanus toxoid, redu donna diphtheria toxoid, and acellular pertussis vaccine, adsorbed BAYRON PINEDAMER RIPPLER-WEB DEVELOPMENT MANAGER [facility] 06-30-2011 influenza virus vaccine, unspecified formulation BAYRON PINEDAMER RIPPLER-WEB DEVELOPMENT MANAGER [facility] Payers Date Payer Category Payer Medicaid [employer] [id number] 2019-Present [phone] [address] [place] [address] Medicaid [id number] 2019 Medicaid [employer] [facility] [id number] 2019-Present [phone] [address] [place] [address] Medicaid [id number] 2019 Unknown [id number] 2017 Unknown [employer]THEM [employer] S [employer] BLUE SHIELD ANTHEM MEDIBLUE HMO [id number] 2017-Present [phone] [address] [place] [address] O [id number] 2017 Unknown ANTHEM BLUE CR[employer] S AND BLUE SHIELD ANTHEM MEDIBLUE O [id number] 2017-Present [phone] [address] [place] [id number] O [id number] 2017 Unknown [id number] 1955 Unknown [id number] Social History Date Type Detail Facility Start: 04-12-2019 End: 05-03-2019 Tobacco smoking status PRIS Never smoked tobacco [facility] Start: 05-03-2019 Tobacco use and exposure Smoke less tobacco non-user [facility] Start: 12-21-2021 End: 01-03-2023 Alcohol intake Lifetime non-drinker (finding) [facility] Start: 05-31-2019 History SDOH Alcohol Frequency 1 [facility] Start: 1955 Sex Assigned At Not on file C [facility] Start: 12-11-2021 End: 12-21-2021 Exposure to SARS-CoV-2 (event) Not sure [facility] Work Phone: Start: 05-31-2019 End: 01-03-2023 History of Social function [facility] Start: 05-31-2019 End: 01-03-2023 Alcohol Use Disorder Identification Test - Consumption [AUDIT-C] [facility] How often to you hav e a drink containing alcohol? Never [facility] Average Number of Drinks Not on file [facility] Sex Assigned At Female [facility] Clinical Notes 12-22-2021 to 03-04-2023 Bayron Arriaga, PT - 03/04/2023 8:18 AM Jurgen Hoyt SPT - 02/09/2023 7:56 AM EDTTelephone Encounter - Kelly Altman RN - 01/17/2023 2:08 PM EDTPatient InstructionsLaboratoryRadiology Note Date & Type Note Facility 03-04-2023 Note HNO ID: [id number] Author: Bayron Arriaga PT Service: ? Author Type: Physical Therapist Type: Progress Notes Filed: 03/28/2023 11:44 AM Note Text: 03/28/2023 [facility] PHYSICAL THERAPY DISCONTINUANCE OF CARE Plan of Care Period: Start of Care Date: 02/09/23 Last Visit Date: 03/04/2023 Therapy Program: The following is a summary of the interventions provided for this episode of care; Therapeutic exercise, Neuromuscular re-education, Self-senior living management, and Gait training Assessment: Based on most recent visit, patient was progressing as expected toward functional goals based on home exercise program compliance and documented subjective information on progress. Unable to formally assess goal achievement, as patient has not returned to therapy or scheduled additional follow-up appointments. Reason for Discontinuation of Care: Patient has not returned to therapy or scheduled additional follow-up appointments. Bayron Arriaga, PT Episode Visit Count: 2 Therapist That Will Accept/Oversee The Plan Of Care: Bayron Arriaga Start of Care Date: 02/09/23 Onset Date: 12/27/22 Plan of Care Certification Date: 02/09/23 Next Certification Due Date: 03/16/23 [facility] PHYSICAL THERAPY TREATMENT NOTE ASSESSMENT: Eloisa Werner tolerated the session with no issues. She demonstrated difficulty with scissoring of gait and dynamic balance. The patient will continue to benefit from ongoing skilled physical therapy to progress toward set goals. Planned Treatment Interventions: Therapeutic exercise (65824), Neuromuscular re-education (89990), Manual therapy (64343), Therapeutic activities (14302), Self-senior living management (10562), Gait Training (30637) PLAN FOR NEXT VISIT: Asses SLS balance SUBJECTIVE: Pt. has a little pain in the right ankle. Pt has pain once in a while. pt reports no falls since last visit. pt says that pain in the ankle is only after walking for an extended period of time. Pain: Pain Pain Level: 0 Pain Location: Ankle - Right Post Treatment Pain Post Treatment Pain Level: 0 Post Treatment Pain Location: Ankle - Right OBJECTIVE MEASURES WITH LEVEL OF FUNCTION: LE AROM R Ankle Dorsiflexion: 5 Degrees R Ankle Plantar Flexion: 45 Degrees R Ankle Inversion: 29 R Ankle Eversion: 11 Dynamic Gait Index Gait level surface : 2 - Mild impairment- walks 20' uses assist device, slower speed, mild gait deviation Change in gait speed: 0 - Severe impairment- cannot change speeds or loses balance and has to reach for wall or be caught Gait and horizontal head turns: 1 - Moderate impairment- performs R/L head turns with moderate change in gait velocity, slows down, staggers but recovers, can continue to walk Gait and vertical head turns: 1 - Moderate impairment- performs R/L head turns with moderate change in gait velocity, slows down, staggers but recovers, can continue to walk Gait and pivot: 2 - Mild impairment- pivot turns safely in >3 sec, stops, no loss of balance Step over obstacle: 2 - Mild impairment- is able to step over box, but must slow down and adjust steps to clear box Step around obstacle: 2 - Mild impairment- able to step around both cones, must slow down and adjust steps to clear cones Steps: 2 - Mild impairment- alternating feet, must use rail Dynamic Gait Index Total: 12 CTSIB Eyes open, firm surface Trial 1 (sec): 30 Eyes open, firm surface Trial 1 (sway): WNL Eyes closed, firm surface Trial 1 (sec): 30 Eyes closed, firm surface Trial 1 (sway): Mild Eyes open, foam surface Trial 1 (sec): 30 Eyes open, foam surface Trial 1 (sway): WNL Eyes closed, foam surface Trial 1 (sec): 30 Eyes closed, foam surface Trial 1 (sway): Moderate Tandem standing, eyes open Trial 1 (sec): 3 Tandem standing, eyes open Trial 1 (sway): Loss of balance Tandem standing, eyes open Trial 2 (sec): 30 Tandem standing, eyes open Trial 2 (sway): WNL Partial tandem standing, eyes open Trial 1 (sec): 30 TREATMENT: Neuromuscular Re-Education: 1: DGI 05/15 2: MCTSIB Skilled Intervention: Skilled judgment used to assess appropriate program for balance and coordination activity. Ensured patient safety with use of SC and gait belt Patient education as noted. Gait Training: Distance (feet): 40'x10 Gait Cues: Cues to reduce sccissoring with gait and for correct usage of cane in left hand while stepping with R LE Assistive Device: SC Assist Level: CGA Skilled Intervention: Patient was provided contact guard assistance during pre-gait/gait training to prevent falls and insure safety. Facilitated proper gait cycle with the use of verbal and visual cues for correction of gait deviations identified in the objective section above. Gait belt utilized during session for safety. Skilled judgment used to assess selection, proper sizing, and proper use of assistive device. (more content not included)... [facility] 03-04-2023 History of Presen t illness Narrative Episode Visit Count: 2 Therapist That Will Accept/Oversee The Plan Of Care: Bayron Arriaga Start of Care Date: 02/09/23 Onset Date: 12/27/22 Plan of Care Certification Date: 02/09/23 Next Certification Due Date: 03/16/23 [facility]ABIL[facility]ATION AND SPORTS [facility]ERAPY PHYSICAL THERAPY TREATMENT NOTE ASSESSMENT: Eloisa Werner tolerated the session with no issues. She demonstrated difficulty with scissoring of gait and dynamic balance. The patient will continue to benefit from ongoing skilled physical therapy to progress toward set goals. Planned Treatment Interventions: Therapeutic exercise (58058), Neuromuscular re-education (25903), Manual therapy (46514), Therapeutic activities (69372), Self-senior living management (61024), Gait Training (58494) PLAN FOR NEXT VISIT: Asses SLS balance SUBJECTIVE: Pt. has a little pain in the right ankle. Pt has pain once in a while. pt reports no falls since last visit. pt says that pain in the ankle is only after walking for an extended period of time. Pain: Pain Pain Level: 0 Pain Location: Ankle - Right Post Treatment Pain Post Treatment Pain Level: 0 Post Treatment Pain Location: Ankle - Right OBJECTIVE MEASURES WITH LEVEL OF FUNCTION: LE AROM R Ankle Dorsiflexion: 5 Degrees R Ankle Plantar Flexion: 45 Degrees R Ankle Inversion: 29 R Ankle Eversion: 11 Dynamic Gait Index Gait level surface : 2 - Mild impairment- walks 20' uses assist device, slower speed, mild gait deviation Change in gait speed: 0 - Severe impairment- cannot change speeds or loses balance and has to reach for wall or be caught Gait and horizontal head turns: 1 - Moderate impairment- performs R/L head turns with moderate change in gait velocity, slows down, staggers but recovers, can continue to walk Gait and vertical head turns: 1 - Moderate impairment- performs R/L head turns with moderate change in gait velocity, slows down, staggers but recovers, can continue to walk Gait and pivot: 2 - Mild impairment- pivot turns safely in >3 sec, stops, no loss of balance Step over obstacle: 2 - Mild impairment- is able to step over box, but must slow down and adjust steps to clear box Step around obstacle: 2 - Mild impairment- able to step around both cones, must slow down and adjust steps to clear cones Steps: 2 - Mild impairment- alternating feet, must use rail Dynamic Gait Index Total: 12 CTSIB Eyes open, firm surface Trial 1 (sec): 30 Eyes open, firm surface Trial 1 (sway): WNL Eyes closed, firm surface Trial 1 (sec): 30 Eyes closed, firm surface Trial 1 (sway): Mild Eyes open, foam surface Trial 1 (sec): 30 Eyes open, foam surface Trial 1 (sway): WNL Eyes closed, foam surface Trial 1 (sec): 30 Eyes closed, foam surface Trial 1 (sway): Moderate Tandem standing, eyes open Trial 1 (sec): 3 Tandem standing, eyes open Trial 1 (sway): Loss of balance Tandem standing, eyes open Trial 2 (sec): 30 Tandem standing, eyes open Trial 2 (sway): WNL Partial tandem standing, eyes open Trial 1 (sec): 30 TREATMENT: Neuromuscular Re-Education: 1: DGI 05/15 2: MCTSIB Skilled Intervention: Skilled judgment used to assess appropriate program for balance and coordination activity. Ensured patient safety with use of SC and gait belt Patient education as noted. Gait Training: Distance (feet): 40'x10 Gait Cues: Cues to reduce sccissoring with gait and for correct usage of cane in left hand while stepping with R LE Assistive Device: SC Assist Level: CGA Skilled Intervention: Patient was provided contact guard assistance during pre-gait/gait training to prevent falls and insure safety. Facilitated proper gait cycle with the use of verbal and visual cues for correction of gait deviations identified in the objective section above. Gait belt utilized during session for safety. Skilled judgment used to assess selection, proper sizing, and proper use of assistive device. Self-Group Home Management: 1: *discussed at length recommendation for AD to reduce fall risk 2: *discussed reducing scissoring in gait to improve safety 3: *discussed followung up with doctor regarding ankle injury Skilled Intervention: Skilled judgment in the selection of proper modification for activity of daily living/home management based on clinical presentation, deficits, and needs. Reviewed patient specific diagnosis in relation to activities of daily living/home management. Activity progression based on professional judgement. Billing Neuromuscular Re-Education Treatment Minutes: 15 Self-Care/Home Management Treatment Minutes: 15 Gait Training Treatment Minutes: 10 Skilled Treatment Time Minutes (timed and untimed codes): 40 Total Session Time (minutes): 40 Session Start Time : 08 Session Stop Time : 899 KAI Velazco documented in this encounter [facility] 02-09-2023 Note HNO ID: [id number] Author: Jurgen Whitten SPT Service: ? Author Type: Student Type: Progress Notes Filed: 02/09/2023 10:12 AM Note Text: Episode Visit Count: 1 Therapist That Will Accept/Oversee The Plan Of Care: Bayron Arriaga Start of Care Date: 02/09/23 Onset Date: 12/27/22 Plan of Care Certification Date: 02/09/23 Next Certification Due Date: 03/16/23 Patient Identified by Name and Date of : Yes REHABILITATION AND SPORTS THERAPY PHYSICAL THERAPY EVALUATION PLAN OF CARE: Assessment: Eloisa Werner presents with diagnosis of sprain of right foot and sprain of unspecified ligament of right ankle that interferes with standing, walking, walking in the community, stair negotiation, physical activities . She presents with impairments in ADL's, balance, coordination, flexibility, gait, independence in exercise, overall function, posture, and strength. PROMIS? (Patient-Reported Outcomes Measurement Information System) scores were reviewed and physical function domain identified as a rehabilitation concern. Prognosis for therapy is Fair due to: clinical presentation, advanced age, chronic nature of impairments, decreased motivation, history of poor adherence with medical recommendations . She will benefit from skilled therapy services to meet the goals established for this plan of care as noted below. Goals for Episode of Care: created on 02/09/23 through 03/09/23 [place] in home exercise program. Increase ROM of R ankle dorsiflexion to 10 degrees with the knee extended for improved weight bearing tolerance Increased strength of R hip abductors to WNL for improved gait mechanics Improve postural awareness. Display correct usage of SC in L UE to reduce fall risk Normal gait with reduced R trendelenburg and LE scissoring Patient Goals: pt.wants to regain mobilty in R ankle Planned Interventions, Frequency, and Duration: Current Frequency: 2x/week Duration: 4 weeks Total Number of Visits Planned: 8 Planned Treatment Interventions: Therapeutic exercise (27025), Neuromuscular re-education (32842), Manual therapy (80488), Therapeutic activities (30944), Self-senior living management (38027), Gait Training (54010) PLAN FOR NEXT VISIT: Static and dynamic balance testing. Gait training for SC usage Patient demonstrates good understanding of plan of care and treatment. The above goals and plan of care were discussed and agreed upon by patient/family. SUBJECTIVE: for sprained ankle. pt. fell and sprained her ankle trying to catch herself. She has an avulsion fracture in her calcaneus. pt. reports that it is improving as the the swelling is going down and pain is reducing. pt. displays tremors in both hands at rest and when attempting to manipulate objects. pt used to walk with a walker due to poor balance but no longer does. Patient Goals: pt.wants to regain mobilty Functional Limitations: standing, walking, walking in the community, stair negotiation, physical activities Prior Level of Function: Independent without limitations Relevant History Employment: Retired Home Environment Home Type: [place] Entry To Home: No Stairs Intake Information: Prescription present Previous Treatment: NSAIDs , Immobilizer/brace Falls Interview: Fall with injury in the last year Falls Intervention: Instructed patient on safety and use of assistive device and awareness in regards to falls prevention. Pain: Pain Pain Level: 0 Pain Location: Ankle - Right Post Treatment Pain Post Treatment Pain Level: 0 Post Treatment Pain Location: Ankle - Right PROMIS Scales Higher is Better 02/09/2023 05/21/2019 Phys Func - Score 44 (mild dysfunction) 44 (mild dysfunction) Phys Func - Percentile 27 % 27 % Self-Eff Symptom - Score 46 (Average) - Self-Eff Symptom - Percentile 34 % - T-scores: mean of general population = 50. 5 points is clinically meaningfully difference Percentiles provide an indication of how the patient's score ranks in relation to the general population. Higher percentile rankings indicate better function/quality of life. 50th percentile is the average of the general population and indicates half of respondents had a worse score. OBJECTIVE MEASURES WITH LEVEL OF FUNCTION: Ankle Observations Weight Bearing Status: WBAT Ankle Brace/Support: None Sensation - Lower Extremity LE Light Touch Sensation: Grossly Intact LE AROM R Ankle Dorsiflexion: 2 Degrees (2 with knee straight, 7 with knee bent) R Ankle Plantar Flexion: 41 Degrees R Ankle Inversion: 25 R Ankle Eversion: 14 Functional Strength Functional Strength: Bilateral Heel Raise Bilateral Heel Raise : 25 Gait Weight Bearing Status: WBAT Gait Observation: R side tendelenberg, decrease arm swing BL, scissoring gait Education: Education Learning Preferences: Demonstration, Explanation, Performance, Printed Materials Barriers: Desire and Motivation, Emotions Learning/e (more content not included)... [facility] 02-09-2023 History of Presen t illness Narrative Episode Visit Count: 1 Therapist That Will Accept/Oversee The Plan Of Care: Bayron Arriaga Start of Care Date: 02/09/23 Onset Date: 12/27/22 Plan of Care Certification Date: 02/09/23 Next Certification Due Date: 03/16/23 Patient Identified by Name and Date of : Yes REHABILITATION AND SPORTS THERAPY PHYSICAL THERAPY EVALUATION PLAN OF CARE: Assessment: lEoisa Werner presents with diagnosis of sprain of right foot and sprain of unspecified ligament of right ankle that interferes with standing, walking, walking in the community, stair negotiation, physical activities . She presents with impairments in ADL's, balance, coordination, flexibility, gait, independence in exercise, overall function, posture, and strength. PROMIS (Patient-Reported Outcomes Measurement Information System) scores were reviewed and physical function domain identified as a rehabilitation concern. Prognosis for therapy is Fair due to: clinical presentation, advanced age, chronic nature of impairments, decreased motivation, history of poor adherence with medical recommendations . She will benefit from skilled therapy services to meet the goals established for this plan of care as noted below. Goals for Episode of Care: created on 02/09/23 through 03/09/23 [place] in home exercise program. Increase ROM of R ankle dorsiflexion to 10 degrees with the knee extended for improved weight bearing tolerance Increased strength of R hip abductors to WNL for improved gait mechanics Improve postural awareness. Display correct usage of SC in L UE to reduce fall risk Normal gait with reduced R trendelenburg and LE scissoring Patient Goals: pt.wants to regain mobilty in R ankle Planned Interventions, Frequency, and Duration: Current Frequency: 2x/week Duration: 4 weeks Total Number of Visits Planned: 8 Planned Treatment Interventions: Therapeutic exercise (13016), Neuromuscular re-education (69742), Manual therapy (21125), Therapeutic activities (79917), Self-senior living management (34402), Gait Training (58689) PLAN FOR NEXT VISIT: Static and dynamic balance testing. Gait training for SC usage Patient demonstrates good understanding of plan of care and treatment. The above goals and plan of care were discussed and agreed upon by patient/family. SUBJECTIVE: for sprained ankle. pt. fell and sprained her ankle trying to catch herself. She has an avulsion fracture in her calcaneus. pt. reports that it is improving as the the swelling is going down and pain is reducing. pt. displays tremors in both hands at rest and when attempting to manipulate objects. pt used to walk with a walker due to poor balance but no longer does. Patient Goals: pt.wants to regain mobilty Functional Limitations: standing, walking, walking in the community, stair negotiation, physical activities Prior Level of Function: Independent without limitations Relevant History Employment: Retired Home Environment Home Type: [place] Entry To Home: No Stairs Intake Information: Prescription present Previous Treatment: NSAIDs , Immobilizer/brace Falls Interview: Fall with injury in the last year Falls Intervention: Instructed patient on safety and use of assistive device and awareness in regards to falls prevention. Pain: Pain Pain Level: 0 Pain Location: Ankle - Right Post Treatment Pain Post Treatment Pain Level: 0 Post Treatment Pain Location: Ankle - Right PROMIS Scales Higher is Better 02/09/2023 05/21/2019 Phys Func - Score 44 (mild dysfunction) 44 (mild dysfunction) Phys Func - Percentile 27 % 27 % Self-Eff Symptom - Score 46 (Average) - Self-Eff Symptom - Percentile 34 % - T-scores: mean of general population = 50. 5 points is clinically meaningfully difference Percentiles provide an indication of how the patient's score ranks in relation to the general population. Higher percentile rankings indicate better function/quality of life. 50th percentile is the average of the general population and indicates half of respondents had a worse score. OBJECTIVE MEASURES WITH LEVEL OF FUNCTION: Ankle Observations Weight Bearing Status: WBAT Ankle Brace/Support: None Sensation - Lower Extremity LE Light Touch Sensation: Grossly Intact LE AROM R Ankle Dorsiflexion: 2 Degrees (2 with knee straight, 7 with knee bent) R Ankle Plantar Flexion: 41 Degrees R Ankle Inversion: 25 R Ankle Eversion: 14 Functional Strength Functional Strength: Bilateral Heel Raise Bilateral Heel Raise : 25 Gait Weight Bearing Status: WBAT Gait Observation: R side tendelenberg, decrease arm swing BL, scissoring gait Education: Education Learning Preferences: Demonstration, Explanation, Performance, Printed Materials Barriers: Desire and Motivation, Emotions Learning/educational needs: Safety, Health promotion, Lifestyle changes, Home exercise program, Plan of Care, Gait Training, Crutch Training Education Provided: Yes, see treatment interventions for education provided Education Provided To: Patient Education Mode/Type: Literature/Printed Materials, Explanation/Discussion, Demonstration Response to Education/Teach Back: States/Identifies TREATMENT: PT Treatment Interventions: Therapeutic Exercise, Neuromuscular Re-Education, Self-Group Home Management, Gait Training Evaluation Therapeutic Exercise: 1: *standing hip abduction 3x8 each leg 2: *Seated gastroc stretch 3x30 sec hold Skilled Intervention: Patient was educated in proper exercise technique and purpose for exercises. Reviewed and educated patient on additions/changes for home exercise program as above (*). Skilled judgment was provided in selection of appropriate interventions. Provided written instruction for home exercise program to facilitate proper performance and compliance. Correct performance of therapeutic exercises was facilitated with verbal and visual cuing. Patient education as noted. Gait Training: Distance (feet): 40'x2 Gait Cues: cues to reduce scissoring during gait Assistive Device: SC Assist Level: supervion Skilled Intervention: Patient was provided supervision during pre-gait/gait training to prevent falls and insure safety. Facilitated proper gait cycle with the use of verbal and visual cues for correction of gait deviations identified in the objective section above. Skilled judgment used to assess selection, proper sizing, and proper use of assistive device. Correct performance of home program was facilitated with verbal and visual cueing. Self-Group Home Management: 1: *discussed at length recommendation for AD to reduce fall risk Skilled Intervention: Skilled judgment in the selection of proper modification for activity of daily living/home management based on clinical presentation, deficits, and needs. Reviewed patient specific diagnosis in relation to activities of daily living/home management. Activity progression based on professional judgement. Billing * Evaluation Low Complexity: 1 Unit Therapeutic Exercise Treatment Minutes: 10 Self-Care/Home Management Treatment Minutes: 10 Gait Training Treatment Minutes: 5 Skilled Treatment Time Minutes (timed and untimed codes): 45 Total Session Time (minutes): 45 Session Start Time : 809 Session Stop Time : 854 KAI Velazco Supervising therapist was present and guided the care of the patient for the entire session on this date. All documentation was reviewed and agreed upon. Bayron Arriaga PT documented in this encounter [facility] 01-17-2023 Miscellaneous Notes Images from the original note were not included. Kerrie Griggs [facility] [place] 3 days ago I attempted to contact patient. No answer. Unable to leave voice mail as the call did not have voice mail. Will try again later or she can make follow-up Kerrie Griggs DPM Patient called. Verified name and date of . Informed of results- patient states she has to talk to Dr. Crawford. Did attempt to discuss with patient to assist however she is adamant that she talks with Dr. Crawford due to him stating he would call her himself. Katherine Pemberton LPN Please call patient to inform her that her xrays to not show any major fracture dislocation. There is a tiny avulsion fracture of the talus but nothing that needs to be fixated or reduced. I think bracing would be adequate. We discussed boot immobilization last office visit but she declined. If she is having pain, a boot could be an option for her Kerrie PAULA Griggs Patient calling again to obtain results of x-rays. Patient calling for results of XR. Advised patient that radiologist report is not yet available. Patient asking for Dr. Griggs's interpretation of images. documented in this encounter [facility] 01-10-2023 Note HNO ID: [id number] Author: Keyanna Kamara RT(R) Service: Radiology Author Type: Technologist Type: Progress Notes Filed: 01/10/2023 2:20 PM Note Text: Radiology Service Progress Note PATIENT NAME: Eloisa Werner DATE OF SERVICE: January 10, 2023 TIME: 2:05 PM PATIENT IDENTITY VERIFICATION COMPLETED USING TWO (2) IDENTIFIERS: Name and Date of confirmed by patient verbally. FALL SCREENING: Has the patient had 2 falls in the last year or 1 fall with injury or currently using an Ambulatory Assistive Device (Walker, Cane, Wheelchair, Crutches, etc.)? Yes, Patient High Risk for Falls What interventions were put in place to prevent falls during this visit? Instructed Patient to Call for Help if Needed, Offered Assistance with Transfers/Clothing, and Increased Observations by Caregivers PATIENT GENDER DATA: Female. status: : No status: NO. PATIENT RELEVANT IMPLANT DATA REVIEWED: Yes RADIOLOGY DEPARTMENT: General X-ray: Exam(s) Completed: Lower Extremity X-Ray(s): Ankle, Right and Foot, Right PERIPHERAL IV DATA: Not applicable SIGNED BY: Keyanna Kamara, RT(R) January 10, 2023 2:05 PM [facility] 01-10-2023 Miscellaneous Notes Images from the original note were not included. Kerrie Griggs 15 minutes ago (1:08 PM) I contacted patient and I had long discussion with patient. I saw this patient last week and I had suggested boot but she declined I did not have any xrays last week or xray report to read. She told me she was diagnosed with ankle sprain in the ED. Xray results were faxed today and suggestive of avulsion fracture but I do not see any hard films. I provided options. 1. Present to ED if she is having pain 2. Repeat xrays today at [facility]. Consider boot pending xrays. 3. Make an appointment/2nd opinion with another local provider. After long discussion, she elected to get repeat xrays. Kerrie Griggs DPM Patient calling and demanding to be seen today by Dr. Griggs. States the bones in her foot need set . It has been 2 weeks since her injury. Tried to explain to the patient Dr. Griggs is in the OR today. Patient is tearful and screaming asking if he can see her tonight? Again, explained to patient Dr. Griggs is not in the office today and the office does not have night hours. Patient states she has not been wearing the brace with a tennis shoe due to her foot is painful. She did not schedule physical therapy. States she is taking Aleve for the pain and is not helping. Advised patient she can take Tylenol with the Aleve. The office did receive her x-ray reports from [facility] today by fax. Patient would like Dr. Griggs to call her BLAISE tomorrow when he is back in the office or be seen to fix the bones in her foot. documented in this encounter [facility] 01-03-2023 Note HNO ID: [id number] Author: Kerrie Griggs Service: ? Author Type: Physician Type: Progress Notes Filed: 01/03/2023 9:31 AM Note Text: Initial Podiatric Office Visit: Chief Complaint: This 67 year old female who presents with chief complaint:right ankle sprain HPI: Patient presents to clinic for evaluation of right foot and ankle She rolled her right ankle one week ago She presented to the ED and was diagnosed with ankle sprain She was given walker and air brace. She is wearing the brace 1/2 the time She is taking ibuprofen for the pain She still has some pain esepcially when she first wakes up PAIN EVALUATION No data found in the last 1 encounters. No results found for: HBA1C PCP: No primary care provider on file. No past medical history on file. Current Outpatient Medications Medication Sig Ibuprofen 200 mg cap Take by mouth every 6 hours as needed for pain. metoprolol succinate ER (TOPROL XL) 25 mg 24 hr tablet Take 25 mg by mouth once daily. fluPHENAZine (PROLIXIN) 2.5 mg/5 mL elixir Take by mouth daily at bedtime. No current facility-administered medications for this visit. ALLERGIES Allergen Reactions Aspirin Vomiting Cats Itching No past surgical history on file. No family history on file. Social History Tobacco Use Smoking status: Never Smokeless tobacco: Never Vaping Use Vaping Use: Never used Substance Use Topics Alcohol use: Never Drug use: Never REVIEW OF SYSTEMS GENERAL: Negative for Malaise, significant weight loss, fever RESPIRATORY: Negative for cough, wheezing and shortness of breath CARDIOVASCULAR: Negative for chest pain, leg swelling and palpitations GI: Negative for abdominal discomfort, blood in stools or black stools and change in bowel habits : Negative for dysuria, frequency and incontinence MUSCULOSKELETAL: Negative for joint pain or swelling, back pain, and muscle pain. SKIN: Negative for lesions, rash, and itching. HEMATOLOGY/LYMPHOLOGY Negative for prolonged bleeding, bruising easily, and swollen nodes. ENDOCRINE: Negative for cold or heat intolerance, polyuria, polydipsia and goiter. NEURO: negative Physical Exam: Constitutional: Pt is a well developed 67 year old female who is alert, oriented and cooperative Eyes: Following during examination. No redness or drainage. Respiratory: RR normal and nonlabored. Even breathing. No evidence of distress or shortness of breath. Psychology: Patient is engaged during conversation. Normal affect and mood. Does not appear depressed or anxious during encounter. Vascular: Dorsalis pedis and posterior tibial pulses palpable as right Capillary Fill time < 5 seconds to digits 1-5 right Skin temperature warm to warm proximal to distal right Hair growth present to digits Neurological: intact light touch/epicritic sensation right intact protective sensation no significant neurological deficits Dermatological: No open wounds to the right foot Musculoskeletal/Orthopaedic: Patient has pain to palpation of right lateral ankle and right midfoot Radiographs: unable to view from [facility] ASSESSMENT: (S93.401A) Sprain of right ankle, unspecified ligament, initial encounter (primary encounter diagnosis) (S93.601A) Sprain of right foot, initial encounter PLAN: 1. History and physical examination performed. 2. Discussed sprain of right foot and ankle. Offered repeat xrays but she decliend. 3. Offered pneumatic boot but she chose to stay in brace 4. Recommend supportive sneaker one that laces up to provide added stability 5. Will make referral to therapy Kerrie Griggs DPM Podiatry [address] [facility] [address] Dept: [phone] Dept [facility] 01-03-2023 Note HNO ID: [id number] Author: Maria Elena Grossman Service: ? Author Type: ? Type: Progress Notes Filed: 01/03/2023 9:31 AM Note Text: Patient presents with: Right Foot - Established Patient, Pain: ED [facility] 12/29/22 xrays taken Patient reports falling and twisting her foot and ankle 7 days ago. She was seen in [facility] ED and they took xrays. She reports intermittent pain with bruising and swelling upon first rising. She takes ibuprofen for pain. [facility] 01-03-2023 Instructions Kerrie Griggs - 01/03/2023 9:27 AM EDT Suspect ankle/foot sprain Recommend: Lace up tennis shoe with use of ankle brace for added stability Ice ankle and foot in cold water bath tub x 10 minutes two to three times daily. Continue with ibuprofren as needed for swelling and pain. Do not exceed 800 mg three times daily documented in this encounter [facility] 01-03-2023 History of Presen t illness Narrative Initial Podiatric Office Visit: Chief Complaint: This 67 year old female who presents with chief complaint:right ankle sprain HPI: Patient presents to clinic for evaluation of right foot and ankle She rolled her right ankle one week ago She presented to the ED and was diagnosed with ankle sprain She was given walker and air brace. She is wearing the brace 1/2 the time She is taking ibuprofen for the pain She still has some pain esepcially when she first wakes up PAIN EVALUATION No data found in the last 1 encounters. No results found for: HBA1C PCP: No primary care provider on file. No past medical history on file. Current Outpatient Medications Medication Sig Ibuprofen 200 mg cap Take by mouth every 6 hours as needed for pain. metoprolol succinate ER (TOPROL XL) 25 mg 24 hr tablet Take 25 mg by mouth once daily. fluPHENAZine (PROLIXIN) 2.5 mg/5 mL elixir Take by mouth daily at bedtime. No current facility-administered medications for this visit. ALLERGIES Allergen Reactions Aspirin Vomiting Cats Itching No past surgical history on file. No family history on file. Social History Tobacco Use Smoking status: Never Smokeless tobacco: Never Vaping Use Vaping Use: Never used Substance Use Topics Alcohol use: Never Drug use: Never REVIEW OF SYSTEMS GENERAL: Negative for Malaise, significant weight loss, fever RESPIRATORY: Negative for cough, wheezing and shortness of breath CARDIOVASCULAR: Negative for chest pain, leg swelling and palpitations GI: Negative for abdominal discomfort, blood in stools or black stools and change in bowel habits : Negative for dysuria, frequency and incontinence MUSCULOSKELETAL: Negative for joint pain or swelling, back pain, and muscle pain. SKIN: Negative for lesions, rash, and itching. HEMATOLOGY/LYMPHOLOGY Negative for prolonged bleeding, bruising easily, and swollen nodes. ENDOCRINE: Negative for cold or heat intolerance, polyuria, polydipsia and goiter. NEURO: negative Physical Exam: Constitutional: Pt is a well developed 67 year old female who is alert, oriented and cooperative Eyes: Following during examination. No redness or drainage. Respiratory: RR normal and nonlabored. Even breathing. No evidence of distress or shortness of breath. Psychology: Patient is engaged during conversation. Normal affect and mood. Does not appear depressed or anxious during encounter. Vascular: Dorsalis pedis and posterior tibial pulses palpable as right Capillary Fill time < 5 seconds to digits 1-5 right Skin temperature warm to warm proximal to distal right Hair growth present to digits Neurological: intact light touch/epicritic sensation right intact protective sensation no significant neurological deficits Dermatological: No open wounds to the right foot Musculoskeletal/Orthopaedic: Patient has pain to palpation of right lateral ankle and right midfoot Radiographs: unable to view from [facility] ASSESSMENT: (S93.401A) Sprain of right ankle, unspecified ligament, initial encounter (primary encounter diagnosis) (S93.601A) Sprain of right foot, initial encounter PLAN: 1. History and physical examination performed. 2. Discussed sprain of right foot and ankle. Offered repeat xrays but she decliend. 3. Offered pneumatic boot but she chose to stay in brace 4. Recommend supportive sneaker one that laces up to provide added stability 5. Will make referral to therapy Kerrie Griggs DPM Podiatry [address] [facility] [address] Dept: [phone] Dept Patient presents with: Right Foot - Established Patient, Pain: ED [facility] 12/29/22 xrays taken Patient reports falling and twisting her foot and ankle 7 days ago. She was seen in [facility] ED and they took xrays. She reports intermittent pain with bruising and swelling upon first rising. She takes ibuprofen for pain. documented in this encounter [facility] 07-01-2022 Evaluation + Plan note Future Scheduled TestsThyroid Stimulating Hormone 07/01/22Free T4 07/01/22Lipid Profile 07/01/22Complete Metabolic Panel 07/01/22MA Mammo Screening Bilateral w/ Lang 03/10/23BD Bone Density DEXA Axial Skeleton 03/10/23 [facility] 12-22-2021 History of Presen t illness Narrative FOLLOW UP PODIATRIC OFFICE VISIT Chief Complaint: This 66 year old who presents for follow up:painful callus of left 2nd metatarsal Patient presents to clinic for follow-up painful callus of left 2nd metatarsal Patient is using inserts and has found this can help at times. She is not interested in any surgery. PAIN EVALUATION No data found in the last 1 encounters. No results found for: HBA1C PCP: No primary care provider on file. No past medical history on file. Current Outpatient Medications Medication Sig metoprolol succinate ER (TOPROL XL) 25 mg 24 hr tablet Take 25 mg by mouth once daily. fluPHENAZine (PROLIXIN) 2.5 mg/5 mL elixir Take by mouth daily at bedtime. No current facility-administered medications for this visit. ALLERGIES Allergen Reactions Aspirin Vomiting Cats Itching No past surgical history on file. Physical Exam: OBJECTIVE: Constitutional: Pt is a well developed 66 year old female who is alert, oriented, cooperative and in no apparent distress. Eyes: Following during examination. No redness or drainage. Respiratory: RR normal and nonlabored. Even breathing. No evidence of distress. Psychology: Patient is engaged during conversation. Normal affect and mood. Does not appear depressed or anxious. NVSI unchanged from previous visit. Dermatological: Callus present to left 2nd metatarsal head. No ulceration on exam. Musculoskeletal/Orthopaedic: Patient has pain to palpation of left 2nd metatarsal callus. Hypermobility of left 1st metatarsal cun joint ASSESSMENT: (L85.9) Hyperkeratosis (primary encounter diagnosis) PLAN: Patient has callus of left 2nd metatarsal. The etiology of callus is hypermobile first ray. Discussed treatment option not limited to padding of callus, inserts vs surgical intervention. Patient is not interested in surgery. Callus was reduced with 15 blade today. In order to perform a complete physical exam, limited shaving of callus area was performed. This incidental service is integral to the evaluation and management visit in order to appropriately manage and treat the patient (for their complaint or for this visit). Kerrie Griggs DPM Patient declined gel powerstep. Provide with gregory juarez though. Yoly Gutierrez LPN AMB ROOMING INTAKE FLOWSHEET DATA Risk Screening Do you have concerns about personal safety or safety in the home?: No Patient presents with: Left Foot - callus, Established Patient, Follow Up Yoly Gutierrez LPN documented in this encounter [facility] Diagnosis Sprain of right ankle, unspecified ligament, initial encounter- Primary Sprain of right foot, initial encounter [facility] Diagnosis Pain in joint involving right ankle and foot- Primary documented in this encounter [facility] note* Diagnosis Sprain of right ankle, unspecified ligament, initial encounter- Primary Sprain of right foot, initial encounter documented in this encounter [facility] note* Diagnosis Sprain of right ankle, unspecified ligament, subsequent encounter- Primary Sprain of right foot, subsequent encounter [facility] Narrative No data available for this section [facility] Hospital Discharge instructions No data available for this section [facility] Progress note No data available for this section [facility] Reason for referral (narrative)* Diagnostic Procedure Only (Routine) - Closed Specialty Diagnoses / Procedures Referred By Contac t Referred To Contact XR IMAGING Diagnoses Pain in joint involving right ankle and foot Procedures XR ANKLE GENERAL 3V AP/LAT/OBL RIGHT RADEX ANKLE COMPLETE MINIMUM 3 VIEWS Kerrie Griggs [address] [place] [id number] [place] [id number] Referral ID Status Reason Start Date Expiration Date V isits Requested Visits Authorized [id number] Closed Auto-Generate d Referral 01/10/2023 02/09/2024 1 1 * Diagnostic Procedure Only (Routine) - Closed Specialty Diagnoses / Procedures Referred By Haylee zapien Referred To Contact XR IMAGING Diagnoses Pain in joint involving right ankle and foot Procedures XR FOOT GENERAL 3V AP/LAT/OBL RIGHT RADEX FOOT COMPLETE MINIMUM 3 VIEWS Kerrie Griggs [address] [place] [address] [place] [id number] Referral ID Status Reason Start Date Expiration Date V isits Requested Visits Authorized [id number] Closed Auto-Generate d Referral 01/10/2023 02/09/2024 1 1 [facility] Reason for Referral Specialty Diagnoses / Procedures Referred By Haylee zapien Referred To Contact [facility] Diagnoses Sprain of right ankle, unspecified ligament, initial encounter Sprain of right foot, initial encounter Procedures CONSULT TO PHYSICAL THERAPY PHYSICAL THERAPY EVALUATION HIGH COMPLEX 45 MINS Kerrie Griggs [address] [place] [address] [facility] [place] [address] [place] [address] Referral ID Status Reason Start Date Expiration Date Visits Requested Visits Authorized [id number] Authorized Auto-Generat ed Referral 05/23/2022 05/22/2023 20 20 Summary Purpose Family History No Family History Records Found Advance Directives No Advanced Directives Records FoundNo Advanced Directives Records Found Additional Source Comments Source Comments (unrecognize d section and content) In the event this informatio n is protected by the Federal Confidentiality of Alcohol and Drug Abuse Patient Records regulations: The Federal rules restrict any use of the information to criminally investigate or prosecute any alcohol or drug abuse patient.[facility] the event this information is protected by the Federal Confidentiality of Alcohol and Drug Abuse Patient Records regulations: The Federal rules restrict any use of the information to criminally investigate or prosecute any alcohol or drug abuse patient.[facility] the event this information is protected by the Federal Confidentiality of Alcohol and Drug Abuse Patient Records regulations: The Federal rules restrict any use of the information to criminally investigate or prosecute any alcohol or drug abuse patient.[facility] the event this information is protected by the Federal Confidentiality of Alcohol and Drug Abuse Patient Records regulations: The Federal rules restrict any use of the information to criminally investigate or prosecute any alcohol or drug abuse patient.[facility] the event this information is protected by the Federal Confidentiality of Alcohol and Drug Abuse Patient Records regulations: The Federal rules restrict any use of the information to criminally investigate or prosecute any alcohol or drug abuse patient.[facility] the event this information is protected by the Federal Confidentiality of Alcohol and Drug Abuse Patient Records regulations: The Federal rules restrict any use of the information to criminally investigate or prosecute any alcohol or drug abuse patient.[facility] the event this information is protected by the Federal Confidentiality of Alcohol and Drug Abuse Patient Records regulations: The Federal rules restrict any use of the information to criminally investigate or prosecute any alcohol or drug abuse patient.[facility] Reason for Visit (unrecogniz ed section and content) Specialty Diagnoses / Procedures Referred By Haylee zapien Referred To Contact [facility] Diagnoses Sprain of right ankle, unspecified ligament, initial encounter Sprain of right foot, initial encounter Procedures CONSULT TO PHYSICAL THERAPY PHYSICAL THERAPY EVALUATION HIGH COMPLEX 45 MINS Kerrie Griggs [address] [place] [address] [facility] [place] [address] [place] [address] Referral ID Status Reason Start Date Expiration Date Visits Requested Visits Authorized [id number] Authorized Auto-Generat ed Referral 05/23/2022 05/22/2023 20 20 Reason Comments callus Established Patient Follow Up Reason Comments Established Patient ED [facility] 12/29/22 xrays taken Pain ED [facility] 12/29/22 xrays taken Reason Comments Patient Question Reason Comments PT Eval Reason Comments Results Patient Care team informatio n (unrecognized section and content) Care Team Personnel Name: JOSE, BAYRON S RIPPLER-WEB DEVELOPMENT MANAGER Position: P4 Advanced Supervising Producer Member Role: Primary Care Physician Address: Address: [address] [place] [address]- Care Team Related Persons Name: QIANA LOU INFORMATION SOURCE (unrecogn ized section and content) DATE CREATED AUTHOR AUTHOR'S ORGANIZ ATION 03/29/2023 [facility] FOR RECORDS PERTAINING TO PATIENTS WHO ARE OR HAVE BEEN ENROLLED IN A CHEMICAL DEPENDENCY/SUBSTANCEABUSE PROGRAM, SOME INFORMATION MAY BE OMITTED. This clinical summary was aggregated from multiple sources. Caution should be exercised in using it in the provision of clinical care. This summary normalizes information from multiple sources, and as a consequence, information in this document may materially change the coding, format and clinical context of patient data. In addition, data may be omitted in some cases. CLINICAL DECISIONS SHOULD BE BASED ON THE PRIMARY CLINICAL RECORDS. [facility] [employer] provides no warranty or guarantee of the accuracy or completeness of information in this document.
[2023-07-26] VITALS: PULSE 96; RESP 16; O2SAT 99
[2023-07-26 01:00] VITALS: BP 148/84; PULSE 78; RESP 16; O2SAT 99
[2023-07-26 02:16] VITALS: RESP 16
[2023-07-26 03:00] VITALS: RESP 18
[2023-07-26 03:29] VITALS: BP 132/74; PULSE 79; RESP 18; TEMP 36.9; O2SAT 99
[2023-07-26 07:00] VITALS: BP 132/64; PULSE 78; RESP 16; TEMP 36.6; O2SAT 98
== END 2023-07-26 09:44 ==
PROVIDERS: Emergency Provider Emergency Medicine; PCP Nurse Practitioner Primary Care; Visit Provider Emergency Medicine
DX: F20.9 Schizophrenia, unspecified (principal); I10 Essential (primary) hypertension
CPT/HCPCS: 80048; 80307; 80320; 84703; 85025; 87635; 99283; G0480

== ENCOUNTER → 2023-09-05 | Outpatient (CLI) | payer MEDICARE, MEDICAID, SELFPAY ==
[2023-09-05 08:48] LABS: Color, Urine Yellow (Yellow); Glucose, Dipstick Normal (Normal); Ketone-Dipstick Negative (Negative); Leukocyte Esterase-Dipstick 500 /ul (Negative); Nitrite-Dipstick Negative (Negative); Occult Blood-Urine 10 /ul (Negative); Protein-Dipstick 15 mg/dl (Negative); Specific Gravity, Urine 1.015 (1.002-1.030); Urine Bilirubin Dipstick Negative (Negative); Urine Clarity Clear (Clear); Urine Urobilinogen Normal (Normal)
== END | disposition home or self-care (01) ==
PROVIDERS: PCP Nurse Practitioner Primary Care; Referring Provider Psychiatry & Neurology Psychiatry; Visit Provider Psychiatry & Neurology Psychiatry
DX: Z79.899 Other long term (current) drug therapy (principal)
CPT/HCPCS: 81002

== ENCOUNTER 2023-09-23 14:27 | Emergency (ER) | payer MEDICARE, MEDICAID, SELFPAY ==
[2023-09-23 14:27] VITALS: BP 140/87; PULSE 72; RESP 19; TEMP 36; O2SAT 99
--- NOTE | 2023-09-23 14:50 | EX.ED.VIS.PS ---
HPI <ERICKA Drake - Last Filed: 09/23/23 20:29> HPI - Psych History of Present Illness Chief Complaint: Mental Health Narrative Narrative: Patient presenting today after being pink slipped by the counseling center. She resides in a senior living, she has become more paranoid, has been talking to people that are not present and has become agitated with other people in the group and will threaten them by shaking her fist at them, glaring at them, making accusations that are not true. She is insisted that she be called [place], which is not turning. Crisis had seen her multiple times over the past few weeks to stabilize and safety planning her but feels that this is no longer effective. They report that she is needing coached on doing her ADLs, they feel that she is having an exacerbation of her paranoid schizophrenia and would benefit from inpatient psychiatric treatment. Patient will not tell me why she is here, she does deny HI, SI, hallucinations, and substance use. PFSH <ERICKA Drake - Last Filed: 09/23/23 20:29> PFSH Medical History Anxiety Depression Hypertension Schizophrenia Home Medications xjvjjynounhz-dbnvhmfz-xpuchnp-folic acid 400 mcg-vit K1 20 mcg tablet (One-A-Day Women's 50 Plus) 1 ea PO DAILY 06/16/18 [History Last Taken Unknown] metoprolol succinate 25 mg tablet,extended release 24 hr 25 mg PO DAILY 07/11/21 [History Last Taken Unknown] Allergy/AdvReac Type Severity Reaction Status Date / Time cat dander Allergy Itching Verified 12/27/22 20:55 house dust Allergy Itching Verified 12/27/22 20:55 amoxicillin AdvReac Unknown Verified 12/27/22 20:55 aspirin AdvReac Nausea/Vom/ Verified 12/27/22 20:55 Diarrhea Social History Smoking Status: Never smoker ROS <ERICKA Drake - Last Filed: 09/23/23 20:29> ROS ED Constitutional Constitutional ED: Denies chills or fever(s) Cardiovascular Cardiovascular: Denies chest pain Respiratory/Chest Respiratory/Chest: Denies cough or dyspnea Gastrointestinal Gastrointestinal: Denies abdominal pain, nausea or vomiting Genitourinary Genitourinary ED: Denies dysuria, hematuria or urinary urgency Musculoskeletal Musculoskeletal: Denies arthralgias or myalgias Integumentary Denies rash Neurologic Neurologic: Denies weakness Psychiatric Psychiatric: Denies depression, hallucinations, suicidal ideation or suicidal thoughts EXAM <ERICKA Drake - Last Filed: 09/23/23 20:29> Physical Exam Const Vital Signs: 09/23/23 14:27 09/23/23 15:27 Temperature 96.8 F L Temperature Source Temporal Pulse Rate 72 77 Respiratory Rate 19 H 16 Blood Pressure 140/87 H 138/70 H Blood Pressure Mean 104 92 Pulse Ox 99 98 Oxygen Delivery Method Room Air Positive well nourished, well developed and no apparent distress General Appearance ED: well developed HEENT Reports normocephalic and head/scalp atraumatic Mouth ED: Yes moist mucous membranes normal Eyes PERRL and EOMs intact bilaterally Neck full ROM and supple Chest Wall inspection of chest normal Resp normal respiratory effort and clear to auscultation bilaterally Cardio regular rate and regular rhythm GI soft to palpation, non-tender, non-distended and no masses Back/Spine normal ROM and normal to inspection Extremity normal to inspection and full ROM Neuro oriented x3, CN's II-XII intact bilaterally, moves all extremities, no focal motor deficits and no sensory deficits noted Sensorium / Orientation: awake and alert Psych Appearance: grossly normal Attitude: withdrawn, uncooperative, evasive and guarded Speech: soft Thought Content: No suicidality, No homicidality and No hallucination(s) Skin no rashes or lesions noted and no wounds <Dr. Jayesh Sierra MD - Last Filed: 09/23/23 18:01> Physical Exam Const Vital Signs: 09/23/23 14:27 09/23/23 15:27 Temperature 96.8 F L Temperature Source Temporal Pulse Rate 72 77 Respiratory Rate 19 H 16 Blood Pressure 140/87 H 138/70 H Blood Pressure Mean 104 92 Pulse Ox 99 98 Oxygen Delivery Method Room Air MDM <ERICKA Drake - Last Filed: 09/23/23 20:29> MDM MDM Narrative Medical decision making narrative: Patient presenting after being sent over from the senior living due to increased agitation, speaking to people who are not there, and becoming aggressive with other senior living members. She was pink slipped and sent for medical clearance. She has a history of paranoid schizophrenia. Her brother did call and reported concerns due to increased confusion and increasingly odd behavior, he did request that a head CT be performed, this was negative for any acute findings. Her workup here overall is unremarkable, she is medically cleared, placement is pending. Lab Data Attestation: I reviewed the patient's lab results. Labs: Laboratory Results - last 24 hr 09/23/23 14:47 WBC 8.5 RBC 4.83 Hgb 14.2 Hct 44.8 MCV 92.8 MCH 29.4 MCHC 31.7 L RDW Std Deviation 45.3 H RDW Coeff of Laith 13.3 Plt Count 288 MPV 9.8 Immature Gran % (Auto) 0.400 Neut % (Auto) 62.1 Lymph % (Auto) 26.3 [place] % (Auto) 7.3 Eos % (Auto) 3.3 Baso % (Auto) 0.6 Absolute Neuts (auto) 5.3 Absolute Lymphs (auto) 2.23 Nucleated RBC % 0 Sodium 137 Potassium 4.3 Chloride 102 Carbon Dioxide 30.0 Anion Gap 5 BUN 15 Creatinine 0.97 Est GFR (MDRD) Af Amer 73 Est GFR (MDRD) Non-Af 60 BUN/Creatinine Ratio 15.4 Glucose 128 H Calcium 8.9 Urine Opiates Screen NEGATIVE Urine Methadone Screen NEGATIVE Ur Barbiturates Screen NEGATIVE Ur Phencyclidine Scrn NEGATIVE Ur Amphetamines Screen NEGATIVE MDMA (Ecstasy) Screen NEGATIVE U Benzodiazepines Scrn NEGATIVE Urine Cocaine Screen NEGATIVE U Cannabinoids Screen NEGATIVE Ur Drug Screen Comment Ethyl Alcohol 3.0 Radiography Diagnostic Testing: Clinical Impression(s) from Imaging Studies Brain CT 09/23/23 16:47 IMPRESSION: Atrophy and mild periventricular white matter ischemic changes.. No acute bleed. If concern for acute infarct MRI recommended Electronically Signed: Joaquín Garcia MD at 17:45 EDT , <Dr. Jayesh Sierra MD - Last Filed: 09/23/23 18:01> [facility] Lab Data Labs: Laboratory Results - last 24 hr 09/23/23 14:47 WBC 8.5 RBC 4.83 Hgb 14.2 Hct 44.8 MCV 92.8 MCH 29.4 MCHC 31.7 L RDW Std Deviation 45.3 H RDW Coeff of Laith 13.3 Plt Count 288 MPV 9.8 Immature Gran % (Auto) 0.400 Neut % (Auto) 62.1 Lymph % (Auto) 26.3 [place] % (Auto) 7.3 Eos % (Auto) 3.3 Baso % (Auto) 0.6 Absolute Neuts (auto) 5.3 Absolute Lymphs (auto) 2.23 Nucleated RBC % 0 Sodium 137 Potassium 4.3 Chloride 102 Carbon Dioxide 30.0 Anion Gap 5 BUN 15 Creatinine 0.97 Est GFR (MDRD) Af Amer 73 Est GFR (MDRD) Non-Af 60 BUN/Creatinine Ratio 15.4 Glucose 128 H Calcium 8.9 Urine Opiates Screen NEGATIVE Urine Methadone Screen NEGATIVE Ur Barbiturates Screen NEGATIVE Ur Phencyclidine Scrn NEGATIVE Ur Amphetamines Screen NEGATIVE MDMA (Ecstasy) Screen NEGATIVE U Benzodiazepines Scrn NEGATIVE Urine Cocaine Screen NEGATIVE U Cannabinoids Screen NEGATIVE Ur Drug Screen Comment Ethyl Alcohol 3.0 Radiography Diagnostic Testing: Clinical Impression(s) from Imaging Studies Brain CT 09/23/23 16:47 IMPRESSION: Atrophy and mild periventricular white matter ischemic changes.. No acute bleed. If concern for acute infarct MRI recommended Electronically Signed: Joaquín Garcia MD at 17:45 EDT , Treatment and Re-Evaluation Narrative: I have personally performed a face to face assessment of the patient and have reviewed the ANN Note. I performed a substantive portion of the visit including all aspects of the following. My tinsley findings include: History is increased agitation and violence at senior living. Glen slipped for psychiatric evaluation. Patient denies any pain or symptoms right now. Denies hallucinations. Poor historian otherwise. Exam is alert, cooperative, lungs clear, heart regular, abdomen soft nontender nondistended. Neck supple no lymphadenopathy. Medical Decison Making Labs for medical clearance, consult crisis. Labs reviewed. There was a call from a family member concerned that her mental status is different over the past couple months requesting a CT of the head which was performed and I reviewed the images, the result, I agree with it. It is negative for any acute. She is medically cleared for psychiatric evaluation. Discharge Plan Triage Chief Complaint: Mental Health ED Midlevel Provider: Heather Parikh ED Provider: Jayesh Sierra Dx/Rx/DC Orders Clinical Impression: Paranoid schizophrenia Prescriptions: No Action One-A-Day Women's 50 Plus 1 EACH tablet 1 ea PO DAILY metoprolol succinate 25 mg tablet extended release 24 hr 25 mg PO DAILY Primary Care Provider: Paty Linder NP Referrals: Paty Linder NP, LEADER[employer]IP PROGRAM ASSOCIATE[employer] [Primary Care Provider] -
[2023-09-23 14:55] LABS: Absolute Lymphocyte Count 2.23 X10^3/uL (0.83-4.51); Absolute Neutrophil Count 5.3 X10^3/uL (2.0-7.7); Basophil# 0.05 X10^3/uL; Basophil% 0.6 % (0-1); Eosinophil# 0.28 X10^3/uL; Eosinophils% 3.3 % (0-5); Hematocrit 44.8 % (37-47); Hemoglobin 14.2 g/dL (12.0-15.0); Lymphocyte # 2.23 X10^3/ul (0.83-4.51); Lymphocyte % 26.3 % (19-41); Mean Corp Hgb Conc 31.7 g/dL (32-36); Mean Corpuscular Hgb 29.4 pg (27.0-32.0); Mean Corpuscular Volume 92.8 fL (81-99); Mean Platelet Vol. 9.8 fl (6.2-12.0); Monocyte# 0.62 X10^3/uL; Monocyte% 7.3 % (0-10); NRBC Flagged by Analyzer 0 % (0-5); Neutrophil # 5.28 X10^3/uL (2.7-7.7); Neutrophil % 62.1 % (47-70); Platelet Count 288 K/mm3 (150-450); RBC Distribution Width CV 13.3 % (11.6-14.6); RBC Distribution Width SD 45.3 fl (35.1-43.9); Red Blood Count 4.83 M/mm3 (4.2-5.4); White Blood Count 8.5 K/mm3 (4.4-11.0)
[2023-09-23 15:06] LABS: Amphetamine Urine VISTA NEGATIVE (<1000 ng/mL); Anion Gap 5 (5-15); BUN 15 mg/dL (7-18); BUN/Creat Ratio 15.4 RATIO (10-20); Barbiturate Urine VISTA NEGATIVE (< 200 ng/mL); Benzodiazepine Urine VISTA NEGATIVE (< 200 ng/mL); Calcium,Total 8.9 mg/dL (8.5-10.1); Chloride 102 mmol/L (98-107); Cocaine Urine VISTA NEGATIVE (< 300 ng/mL); Creatinine, Serum 0.97 mg/dL (0.55-1.02); EST Glomerular Filtration Rate 60 mL/min (>60); Ecstacy Urine VISTA NEGATIVE (< 500 ng/mL); Est Glom Filt Rate - Afr Amer 73 mL/min (>60); Glucose 128 mg/dL (74-106); Methadone Urine VISTA NEGATIVE (< 300 ng/mL); PCP Urine VISTA NEGATIVE (< 25 ng/mL); Potassium 4.3 mmol/L (3.5-5.1); Sodium Level 137 mmol/L (136-145); THC Urine VISTA NEGATIVE (< 50 ng/mL); Vista UDS pH Range 6
[2023-09-23 15:27] VITALS: BP 138/70; PULSE 77; RESP 16; O2SAT 98
--- NOTE | 2023-09-23 16:47 | CT_ITS ---
STUDY: CT BRAIN WITHOUT CONTRAST REASON FOR EXAM: Female, 67 years old. confusion, psychosis RADIATION DOSAGE (If Supplied By Facility): CTDIvol = ( 44.99 ) mGy, DLP = ( 829.85 ) mGycm TECHNIQUE: Transaxial CT imaging of the brain was performed without administration of intravenous contrast material. Individualized dose optimization techniques were used for this CT. COMPARISON: May 18, 2021. FINDINGS: Normal soft tissue structures. Normal calvarium. Calcific plaquing of the cavernous carotids and vertebral arteries. Atrophy and mild periventricular white matter ischemic changes.. Normal basal ganglia and thalami. Normal brainstem. Normal cerebellum. There is no intracranial hemorrhage. There are no findings of an acute ischemic infarction. Normal visualized paranasal sinuses. No significant change since prior exam CT/Brain/Head without Contrast IMPRESSION: Atrophy and mild periventricular white matter ischemic changes.. No acute bleed. If concern for acute infarct MRI recommended Electronically Signed: Joaquín Garcia MD at 17:45 EDT ,
[2023-09-23 19:48] VITALS: BP 136/100; PULSE 78; RESP 18; O2SAT 98
[2023-09-23 21:00] VITALS: BP 136/100; PULSE 78; RESP 18; TEMP 36; O2SAT 98
== END 2023-09-23 21:30 ==
PROVIDERS: Physician Assistant; Emergency Provider Emergency Medicine; PCP Nurse Practitioner Primary Care; Visit Provider Emergency Medicine
DX: F20.0 Paranoid schizophrenia (principal); I10 Essential (primary) hypertension; Z79.899 Other long term (current) drug therapy
CPT/HCPCS: 70450; 80048; 80307; 80320; 85025; 99283; G0480

== ENCOUNTER 2023-10-11 15:18 | Emergency (ER) | payer MEDICARE, MEDICAID, SELFPAY ==
[2023-10-11] VITALS (11 sets, daily range): BP systolic 119–173; BP diastolic 65–118; PULSE 75–143; RESP 16–32; TEMP 36.8; O2SAT 95–100; BMI 25.4
--- NOTE | 2023-10-11 15:37 | EDS_ITS ---
HPI History of Present Illness Chief Complaint: Fall Narrative Narrative: 67-year-old female presenting after fall yesterday. Per nursing there was no report called and although he knows that EMS them that she had a fall yesterday and she is little more tired today. Patient is schizophrenic and is not answering any questions. She is alert and awake. No evidence of. She states she does not have any pain. [facility] Medical History Hypertension Schizophrenia Anxiety Depression Home Medications ?Medication ?Instructions ?Recorded ?Last Taken ?Type [id number]-[id number]-jahlezc-folic 1 ea PO DAILY 06/16/18 Unknown History acid 400 mcg-vit K1 20 mcg tablet (One-A-Day Women's 50 Plus) metoprolol succinate 25 mg 25 mg PO DAILY 07/11/21 Unknown History tablet,extended release 24 hr Allergy/AdvReac Type Severity Reaction Status Date / Time cat dander Allergy Itching Verified 10/11/23 15:26 house dust Allergy Itching Verified 10/11/23 15:26 amoxicillin AdvReac Unknown Verified 10/11/23 15:26 aspirin AdvReac Nausea/Vom/ Verified 10/11/23 15:26 Diarrhea Social History Smoking Status: Never smoker ROS ROS ED Constitutional Constitutional ED: Denies chills, fever(s) or sweats Eyes Eyes: Denies blurry vision or change in vision ENT ENT ED: Denies ear pain or sore throat Cardiovascular Cardiovascular: Denies chest pain, palpitations or racing heartbeat Respiratory/Chest Respiratory/Chest: Denies cough, dyspnea or sputum Gastrointestinal Gastrointestinal: Denies abdominal pain, constipation, diarrhea, nausea or vomiting Genitourinary Genitourinary ED: Denies dysuria, hematuria or urinary frequency Musculoskeletal Musculoskeletal: Denies arthralgias, myalgias or neck pain Integumentary Denies abscess, Abrasions or rash Neurologic Neurologic: Denies headache(s), paresthesias or weakness Psychiatric Psychiatric: Denies anxiety, depression, suicidal ideation or suicidal thoughts Endocrine Endocrinology: Denies polydipsia or polyuria EXAM Physical Exam Const Vital Signs: 10/11/23 15:22 10/11/23 16:15 10/11/23 16:21 Temperature 98.2 F Temperature Source Temporal Pulse Rate 93 Respiratory Rate 16 Respiratory Effort Normal Respiratory Depth Normal Respiratory Pattern Normal Blood Pressure 146/84 H 124/70 H Blood Pressure Mean 104 80 Pulse Ox 95 95 Oxygen Delivery Method Room Air Room Air 10/11/23 16:30 10/11/23 16:45 10/11/23 17:00 Temperature Temperature Source Pulse Rate 75 76 110 H Respiratory Rate 17 17 17 Respiratory Effort Respiratory Depth Respiratory Pattern Blood Pressure 121/65 H 119/84 H Blood Pressure Mean 83 95 Pulse Ox 96 96 Oxygen Delivery Method 10/11/23 17:15 10/11/23 17:30 10/11/23 17:45 Temperature Temperature Source Pulse Rate 143 H Respiratory Rate 18 32 H Respiratory Effort Respiratory Depth Respiratory Pattern Blood Pressure 173/118 H Blood Pressure Mean 135 Pulse Ox 97 98 98 Oxygen Delivery Method Room Air 10/11/23 18:00 10/11/23 18:15 Temperature Temperature Source Pulse Rate 77 80 Respiratory Rate 18 18 Respiratory Effort Respiratory Depth Respiratory Pattern Blood Pressure 145/100 H Blood Pressure Mean 113 Pulse Ox 98 98 Oxygen Delivery Method Room Air Positive well nourished General Appearance ED: Negative for pallor HEENT Reports normocephalic, head/scalp atraumatic and moist mucous membranes Eyes PERRL and EOMs intact bilaterally Neck no lymphadenopathy and supple Chest Wall inspection of chest normal and palpation of chest normal Resp normal respiratory effort and clear to auscultation bilaterally Auscultation: Negative for rales, rhonchi or wheezes Cardio regular rate and regular rhythm GI normal to inspection, nondistended, normoactive bowel sounds and non-distended Auscultation: normoactive bowel sounds Palpation: soft Narrative: Deferred Back/Spine normal to inspection Extremity normal to inspection and full ROM General Extremety ED: Negative for deformity, edema or tenderness General Extremity: Negative for deformity or edema Neuro CN's II-XII intact bilaterally Sensorium / Orientation: alert Motor Exam: strength 5/5 throughout Psych mental status grossly normal Attitude: No agitated Skin no rashes or lesions noted and no wounds General Skin Exam: Negative for jaundice or pallor MDM MDM MDM Narrative Medical decision making narrative: Patient presenting with fall yesterday. Details are not clear but the patient is a great informant. She denies any pain. Differential includes dehydration, anemia, electrolyte abnormalities, dysrhythmia, ACS, UTI, intracranial hemorrhage, skull fracture, C-spine fracture, pneumonia. CBC obtained to assess white blood cell count, hemoglobin and platelets. CMP to assess liver function, renal function, electrolytes, glucose. High-sensitivity troponin and EKG to assess for ischemia/dysrhythmia. Chest x-ray to rule out pneumonia. CT brain and cervical spine to assess for injuries. Chest x-ray to rule out pneumonia. CBC shows normal white blood cell count, hemoglobin, platelets. CMP unremarkable. Urinalysis negative for infection. CT brain and cervical spine are both negative for acute findings. Chest x-ray my interpretation reveals no acute process. Radiologist interpretation agrees high-sensitivity troponin less than 3 and EKG shows a sinus rhythm at 79 bpm without sign ischemic change or ectopy on my interpretation. At this point patient's workup is ultimately negative. Discussed all findings with her. She has no questions. Impression: 1. Fall Lab Data Labs: Laboratory Results - last 24 hr 10/11/23 10/11/23 15:37 17:08 WBC 8.4 RBC 4.56 Hgb 13.4 Hct 41.9 MCV 91.9 MCH 29.4 MCHC 32.0 RDW Std Deviation 44.0 H RDW Coeff of Laith 13.0 Plt Count 299 MPV 9.6 Immature Gran % (Auto) 0.500 Neut % (Auto) 62.9 Lymph % (Auto) 25.7 [place] % (Auto) 8.0 Eos % (Auto) 2.4 Baso % (Auto) 0.5 Absolute Neuts (auto) 5.3 Absolute Lymphs (auto) 2.16 Nucleated RBC % 0 Sodium 136 Potassium 3.9 Chloride 100 Carbon Dioxide 29.0 Anion Gap 7 BUN 16 Creatinine 0.86 Estim Creat Clear Calc 58.97 Est GFR (MDRD) Af Amer 84 Est GFR (MDRD) Non-Af 69 BUN/Creatinine Ratio 18.5 Glucose 108 H Calcium 8.9 Total Bilirubin 0.40 AST 16 ALT 31 Alkaline Phosphatase 77 Troponin I High Sens 3 Total Protein 7.2 Albumin 3.4 Globulin 3.8 Albumin/Globulin Ratio 0.9 Urine Color Yellow Urine Clarity Clear Urine pH 6.0 Ur Specific [place] 1.020 Urine Protein Negative Urine Glucose (UA) Normal Urine Ketones 5 H Urine Occult Blood Negative Urine Nitrite Negative Urine Bilirubin Negative Urine Urobilinogen Normal Ur Leukocyte Esterase Negative Urine RBC 0 SEEN Urine WBC 0 SEEN Ur Squamous Epith Cells 0 SEEN Urine Bacteria 0 SEEN Urine Mucus 0 SEEN Radiography Diagnostic Testing: Clinical Impression(s) from Imaging Studies Brain CT 10/11/23 15:39 IMPRESSION: Mild atrophy and periventricular white matter ischemic changes. No acute bleed. . If concern for acute infarct MRI recommended Electronically Signed: Joaquín Garcia MD at 16:35 EDT , Cervical Spine CT 10/11/23 15:39 IMPRESSION: Moderate spondylosis. No acute fracture or other significant abnormality. Electronically Signed: Joaquín Garcia MD at 16:12 EDT , Chest X-Ray 10/11/23 15:50 IMPRESSION: Old granulomatous disease. No acute cardiopulmonary pathology. Electronically Signed: Joaquín Garcia MD at 16:24 EDT , Discharge Plan Triage Chief Complaint: Fall Other Complaint: Head Injury ED Provider: Mikael Eid Dx/Rx/DC Orders Instructions: ED Fall Prevention Prescriptions: No Action One-A-Day Women's 50 Plus 1 EACH tablet 1 ea PO DAILY metoprolol succinate 25 mg tablet extended release 24 hr 25 mg PO DAILY Primary Care Provider: Paty Linder NP Referrals: Paty Linder NP, RE[employer] PROGRAMMER-[employer] [Primary Care Provider] - Print Language: Czech Disposition Disposition: Home, Self Care
--- NOTE | 2023-10-11 15:39 | CT_ITS ---
STUDY: CT BRAIN WITHOUT CONTRAST REASON FOR EXAM: Female, 67 years old. ams RADIATION DOSAGE (If Supplied By Facility): CTDIvol = ( 44.99 ) mGy, DLP = ( 779.24 ) mGycm TECHNIQUE: Transaxial CT imaging of the brain was performed without administration of intravenous contrast material. Individualized dose optimization techniques were used for this CT. COMPARISON: September 23, 2023. FINDINGS: Normal soft tissue structures. Normal calvarium. Calcific plaquing of the cavernous carotids and vertebral arteries Mild atrophy and periventricular white matter ischemic changes.. Normal basal ganglia and thalami. Normal brainstem. Normal cerebellum. There is no intracranial hemorrhage. There are no findings of an acute ischemic infarction. Normal visualized paranasal sinuses. CT/Brain/Head without Contrast IMPRESSION: Mild atrophy and periventricular white matter ischemic changes. No acute bleed. . If concern for acute infarct MRI recommended Electronically Signed: Joaquín Garcia MD at 16:35 EDT ,
--- NOTE | 2023-10-11 15:39 | EKG12_ITS ---
Test Reason : FALL Blood Pressure : / mmHG Vent. Rate : 079 BPM Atrial Rate : 079 BPM P-R Int : 126 ms QRS Dur : 084 ms QT Int : 386 ms P-R-T Axes : 031 026 035 degrees QTc Int : 442 ms Normal sinus rhythm Normal ECG Confirmed by Roge Schmitt ([id number]), order editor VITALIY DONOVAN ([id number]) on 10/12/2023 12:55:14 PM Referred By: MILY Confirmed By:Roge Schmitt
--- NOTE | 2023-10-11 15:39 | CT_ITS ---
STUDY: CT CERVICAL SPINE WITHOUT CONTRAST REASON FOR EXAM: Female, 67 years old. fall RADIATION DOSAGE (If Supplied By Facility): CTDIvol = ( 17.57 ) mGy, DLP = ( 378.44 ) mGycm TECHNIQUE: High resolution transaxial imaging was performed without contrast material. Sagittal and coronal images were reconstructed. Individualized dose optimization techniques were used for this CT. COMPARISON: None FINDINGS: Normal craniovertebral junction. Normal anterior atlantoaxial articulation. Normal odontoid process. Loss of normal cervical lordosis likely due to muscle spasm or positioning artifact. Normal vertebral bodies and posterior osseous elements. C2-3: Normal endplates. Normal disc height and morphology. Normal central canal and intervertebral neuroforamina. C3-4: Narrowed disc space and minor endplate spurring.. Normal central canal. Mild bilateral neural foraminal encroachment secondary to bony hypertrophy C4-5: Narrowed disc space and endplate spurring.. Normal central canal. Mild left neural foraminal stenosis secondary to bony hypertrophy C5-6: Narrowed disc space and endplate spurring. Normal central canal. Severe left foraminal stenosis secondary to bony hypertrophy C6-7: Narrowed disc space and endplate spurring.. Mild narrowing of the central canal. Normal intervertebral neuroforamina. C7-T1: Anterior endplate spurring.. Normal disc height and morphology. Normal central canal and intervertebral neuroforamina. Normal visualized soft tissue structures. CT/Spine Cervical without Contras IMPRESSION: Moderate spondylosis. No acute fracture or other significant abnormality. Electronically Signed: Joaquín Garcia MD at 16:12 EDT ,
[2023-10-11] MEDS: 0.9% Normal Saline (1000mL) 1,000 ML 1000 ML IV (15:45)
--- NOTE | 2023-10-11 15:50 | RAD_ITS ---
STUDY: X-RAY CHEST REASON FOR EXAM: Female, 67 years old. ams TECHNIQUE: AP portable COMPARISON: None. FINDINGS: The lungs are clear and expanded. Tiny calcified granuloma in the left lower lobe There is no demonstrated pleural abnormality. Normal size heart. Normal mediastinum. There are calcified left hilar nodes Normal visualized pulmonary arteries. Mildly calcified aortic arch and descending thoracic aorta. Dorsal spine demonstrates mild scoliosis and degenerative change. Normal visualized ribs, clavicles, and shoulders. There is no demonstrated abnormality of the visualized soft tissue structures of the upper abdomen. RAD/Chest 1 View (Portable) IMPRESSION: Old granulomatous disease. No acute cardiopulmonary pathology. Electronically Signed: Joaquín Gracia MD at 16:24 EDT ,
[2023-10-11 16:23] LABS: Absolute Lymphocyte Count 2.16 X10^3/uL (0.83-4.51); Absolute Neutrophil Count 5.3 X10^3/uL (2.0-7.7); Basophil# 0.04 X10^3/uL; Basophil% 0.5 % (0-1); Eosinophils% 2.4 % (0-5); Hematocrit 41.9 % (37-47); Hemoglobin 13.4 g/dL (12.0-15.0); Lymphocyte # 2.16 X10^3/ul (0.83-4.51); Lymphocyte % 25.7 % (19-41); Mean Corpuscular Hgb 29.4 pg (27.0-32.0); Mean Corpuscular Volume 91.9 fL (81-99); Mean Platelet Vol. 9.6 fl (6.2-12.0); Monocyte# 0.67 X10^3/uL; NRBC Flagged by Analyzer 0 % (0-5); Neutrophil # 5.31 X10^3/uL (2.7-7.7); Neutrophil % 62.9 % (47-70); Platelet Count 299 K/mm3 (150-450); Red Blood Count 4.56 M/mm3 (4.2-5.4); White Blood Count 8.4 K/mm3 (4.4-11.0)
[2023-10-11 16:39] LABS: ALB/GLOB Ratio 0.9 RATIO (0.9-2.4); AST(SGOT) 16 U/L (15-37); Alanine Aminotransfer ALT/SGPT 31 U/L (13-56); Albumin, Serum 3.4 g/dL (3.2-5.0); Alkaline Phosphatase 77 U/L (45-117); Anion Gap 7 (5-15); BUN 16 mg/dL (7-18); BUN/Creat Ratio 18.5 RATIO (10-20); Calcium,Total 8.9 mg/dL (8.5-10.1); Chloride 100 mmol/L (98-107); Creatinine, Serum 0.86 mg/dL (0.55-1.02); EST Glomerular Filtration Rate 69 mL/min (>60); Est Glom Filt Rate - Afr Amer 84 mL/min (>60); Estimated Creatinine Clearance 58.97 ml/min; Globulin 3.8 g/dL (2.2-4.2); Glucose 108 mg/dL (74-106); Potassium 3.9 mmol/L (3.5-5.1); Protein, Total 7.2 g/dL (6.4-8.2); Sodium Level 136 mmol/L (136-145); Troponin-I HS 3 pg/mL (3.0-54.0)
[2023-10-11 17:19] LABS: Bacteria 0 SEEN /hpf (None Seen); Mucous, Urine 0 SEEN /hpf (<or=2+); Red Blood Cells-Urine 0 SEEN /hpf (0-5); Squamous Epithelial Cells - UA 0 SEEN /hpf (5-10); White Blood Cells 0 SEEN /hpf (0-5)
[2023-10-11 17:33] LABS: Color, Urine Yellow (Yellow); Glucose, Dipstick Normal (Normal); Ketone-Dipstick 5 mg/dl (Negative); Leukocyte Esterase-Dipstick Negative /ul (Negative); Nitrite-Dipstick Negative (Negative); Occult Blood-Urine Negative /ul (Negative); Protein-Dipstick Negative (Negative); Urine Bilirubin Dipstick Negative (Negative); Urine Clarity Clear (Clear); Urine Urobilinogen Normal (Normal)
--- NOTE | 2023-10-11 19:31 | ED.RN ---
1928: 2 attempts made to call brother listed on file, Moe, for patient update with no answer. 1731: Contacted [facility] staff member, about patient discharge and need for ride home.
== END 2023-10-11 20:23 | disposition home or self-care (01) ==
PROVIDERS: Emergency Provider Student in an Organized Health Care Education/Training Program; PCP Nurse Practitioner Primary Care; Visit Provider Student in an Organized Health Care Education/Training Program
DX: S09.90XA Unspecified injury of head, initial encounter (principal); F20.9 Schizophrenia, unspecified; W19.XXXA Unspecified fall, initial encounter; I10 Essential (primary) hypertension; F32.A Depression, unspecified; F41.9 Anxiety disorder, unspecified
CPT/HCPCS: 70450; 71045; 72125; 80053; 81001; 84484; 85025; 93005; 96360; 99285; J7030; P9612; A4216

== ENCOUNTER 2023-10-16 20:41 | Emergency (ER) | payer MEDICARE, MEDICAID, SELFPAY ==
[2023-10-16 20:42] VITALS: BP 124/79; PULSE 87; RESP 18; TEMP 35.7; O2SAT 94
--- NOTE | 2023-10-16 21:21 | CT_ITS ---
STUDY: CT BRAIN WITHOUT CONTRAST REASON FOR EXAM: Female, 67 years old. fall Individualized dose optimization techniques were used for this CT. TECHNIQUE: Transaxial CT imaging of the brain was performed without administration of intravenous contrast material. COMPARISON: 10/11/2019 FINDINGS: There are calcifications noted in the distal vertebral arteries. There are calcifications noted in the cavernous carotid arteries. This is consistent for atherosclerotic disease. There is hyperostosis frontalis internus. Normal soft tissues. There is mild cerebral atrophy with widening of the extra-axial spaces and ventricular dilatation. There are areas of decreased attenuation within the white matter tracts of the supratentorial brain, consistent with microvascular disease changes. Normal basal ganglia and thalami. Normal brainstem. There is mild cerebellar atrophy. There is no intracranial hemorrhage. There are no findings of an acute ischemic infarction. Normal visualized paranasal sinuses. ASPECTS Score for Acute Strokes: 03/01 CT/Brain/Head without Contrast IMPRESSION: There are no acute findings. Chronic involutional changes of the brain. Electronically Signed: Mynor Rocha MD at 21:53 EDT ,
--- NOTE | 2023-10-16 21:26 | EDS_ITS ---
HPI History of Present Illness Chief Complaint: Weakness Informant: patient Narrative Narrative: Patient sent in from long-term for evaluation. Patient reports her home and family living professor called. She was seen 5 days ago for a fall. She had a full workup including CT scans head neck chest x-ray urine and lab work that were all stable. She does not take any blood thinners. She has history of schizophrenia with tar dive dyskinesia. She ambulates without any assistance. She reports she has been ambulating last couple days. She has no chest pains or cough no vomiting or diarrhea denies urinary symptoms. She is a diabetic. On EMS report noted complaint was that patient was leaning to the right. She denies any headaches. [facility] Medical History Hypertension Schizophrenia Anxiety Depression Home Medications ?Medication ?Instructions ?Recorded ?Last Taken ?Type metoprolol succinate 25 mg 25 mg PO DAILY 07/11/21 Unknown History tablet,extended release 24 hr multivitamin with folic acid 400 1 tab PO DAILY 10/16/23 Unknown History mcg tablet (Daily-Christiano (with folic acid)) Allergy/AdvReac Type Severity Reaction Status Date / Time cat dander Allergy Itching Verified 10/16/23 20:48 house dust Allergy Itching Verified 10/16/23 20:48 amoxicillin AdvReac Unknown Verified 10/16/23 20:48 aspirin AdvReac Nausea/Vom/ Verified 10/16/23 20:48 Diarrhea Social History housing: other Smoking Status: Never smoker ROS ROS ED Constitutional Constitutional ED: Denies chills, fever(s) or sweats Eyes Eyes: Denies change in vision ENT ENT ED: Denies dysphagia or sore throat Cardiovascular Cardiovascular: Denies chest pain, leg edema, palpitations or racing heartbeat Respiratory/Chest Respiratory/Chest: Denies cough, dyspnea or dyspnea on exertion Gastrointestinal Gastrointestinal: Denies abdominal pain, diarrhea, nausea or vomiting Genitourinary Genitourinary ED: Denies dysuria, hematuria or urinary frequency Musculoskeletal Musculoskeletal: Denies back pain, extremity pain or neck pain Integumentary Denies rash or wounds Neurologic Neurologic: Reports weakness; Denies headache(s) or paresthesias EXAM Physical Exam Const Vital Signs: 10/16/23 20:42 10/16/23 20:47 10/16/23 22:41 Temperature 96.3 F L Temperature Source Temporal Pulse Rate 87 78 Respiratory Rate 18 16 Respiratory Effort Normal Non-Labored Respiratory Pattern Normal Blood Pressure 124/79 H Blood Pressure Mean 94 Pulse Ox 94 95 Oxygen Delivery Method Room Air Positive well nourished and well developed Constitutional Narrative: Generalized tardive dyskinesia with her mouth and upper extremities however she was able to slow down control and answer questions. She reports this is her baseline. General Appearance ED: well developed and NAD HEENT Reports moist mucous membranes normocephalic and atraumatic Eyes EOMs intact bilaterally and conjunctivae normal General Eye ED: Yes normal appearance of both eyes Neck no lymphadenopathy and supple General: Negative for tenderness Chest Wall Chest: Negative for tenderness Resp normal respiratory effort and normal air movement Effort and Inspection: symmetric chest movement; Negative for respiratory distress Cardio regular rate, regular rhythm and no murmurs Peripheral Pulses: pulses 2+ throughout GI normal to inspection, nondistended, normoactive bowel sounds and non-tender Palpation: Negative for guarding or rebound tenderness present Back/Spine no CVA tenderness and no thoracic nor lumbar tenderness Extremity normal to inspection General Extremety ED: Negative for edema or tenderness General Extremity: Negative for edema Neuro oriented x3, CN's II-XII intact bilaterally and no sensory deficits noted Neuro Narrative: No focal deficits. Sensorium / Orientation: awake and alert Skin no rashes or lesions noted and no wounds MDM MDM MDM Narrative Medical decision making narrative: Interventions / MDM: Differential diagnosis: Weakness Diagnosis considered but do not suspect: Intracranial hemorrhage however CT negative. No infectious symptoms of UTI or pneumonia. My EKG interpretation: N/A Imaging independently reviewed and interpreted by myself: CT brain: No acute process. External documents reviewed: N/A Test considered but not ordered:N/A ED course: Patient without any complaints. However noted report from EMS that she is leaning to the right. Order CT scan of the brain to rule any delayed bleeds. Blood glucose also ordered. Blood glucose 106. CT head negative. Patient was ambulated with no difficulty in the ED. Chronic tardive dyskinesia with her schizophrenia history. Do not feel further labs or testing is necessary as she had workup 5 days ago and no symptoms today. She will be discharged with outpatient follow-up with her PCP. Re-evaluation: stable Disposition discussed with patient/family/significant other: Patient Case discussed with consulting clinician: N/A This note was generated with [employer] dictation software. It may contain incorrect words, spelling, and punctuation that were not noted in checking the note before signing. Lab Data Attestation: I reviewed the patient's lab results. Labs: Laboratory Results - last 24 hr 10/16/23 21:41 POC Glucose 106 Radiography Diagnostic Testing: Clinical Impression(s) from Imaging Studies Brain CT 10/16/23 21:21 IMPRESSION: There are no acute findings. Chronic involutional changes of the brain. Electronically Signed: Mynor Rocha MD at 21:53 EDT , Discharge Plan Triage Chief Complaint: Weakness ED Provider: Oziel Vincent Dx/Rx/DC Orders Clinical Impression: Weakness, Schizophrenia, Dyskinesia, tardive Instructions: ED Weakness (Uncertain Cause) Prescriptions: No Action metoprolol succinate 25 mg tablet extended release 24 hr 25 mg PO DAILY multivitamin with folic acid [Daily-Christiano (with folic acid)] 400 mcg tablet 1 tab PO DAILY Primary Care Provider: Paty Linder NP Referrals: Paty Linder NP, [employer]ILROAD CAR REPAIRMAN-[employer] [Primary Care Provider] - 3-5 Days Activity Restrictions/Additional Instructions: Re-CT scan of your brain negative. You have no infection symptoms. You had workup 5 days ago with labs urine chest x-ray are normal. Your vitals are stable. You are able to ambulate in the ED. Follow-up with your doctor for reevaluation. Print Language: [place]se Disposition Disposition: Home, Self Care
[2023-10-16 21:58] LABS: Bedside Glucose 106 mg/dL (74-106)
[2023-10-16 22:41] VITALS: PULSE 78; RESP 16; O2SAT 95
--- NOTE | 2023-10-16 23:04 | ED.RN ---
This RN called the senior care and the worker that answered the phone stated that they do not set up transportation for her and that we will have to. This RN stated she does not meet criteria for a squad and she would have to go by taxi. The worker stated she would call us back.
[2023-10-16 23:21] VITALS: BP 134/78; PULSE 79; RESP 19; TEMP 37.1; O2SAT 96
== END 2023-10-16 23:23 | disposition home or self-care (01) ==
PROVIDERS: Emergency Provider Emergency Medicine; PCP Nurse Practitioner Primary Care; Visit Provider Emergency Medicine
DX: R53.1 Weakness (principal); F20.9 Schizophrenia, unspecified; E11.9 Type 2 diabetes mellitus without complications; G24.01 Drug induced subacute dyskinesia; Z79.899 Other long term (current) drug therapy; I10 Essential (primary) hypertension
CPT/HCPCS: 70450; 82962; 99282

== ENCOUNTER 2023-10-21 07:46 | Inpatient (IN) | payer MEDICARE, MEDICAID, SELFPAY ==
[2023-10-21] VITALS (9 sets, daily range): BP systolic 125–167; BP diastolic 67–103; PULSE 75–86; RESP 14–18; TEMP 36.5–37.1; O2SAT 95–98; BMI 24.7; BMI 24.3
--- NOTE | 2023-10-21 08:15 | CT_ITS ---
STUDY: CT BRAIN WITHOUT CONTRAST REASON FOR EXAM: Female, 67 years old. Unwitnessed fall. RADIATION DOSAGE (If Supplied By Facility): CTDIvol = ( 44.99 ) mGy, DLP = ( 829.85 ) mGycm TECHNIQUE: Transaxial CT imaging of the brain was performed without administration of intravenous contrast material. Individualized dose optimization techniques were used for this CT. COMPARISON: Comparison is made with prior study dated October 16, 2023. FINDINGS: Normal soft tissue structures. There is hyperostosis frontalis internus. There is mild cerebral atrophy with widening of the extra-axial spaces and ventricular dilatation. There are areas of decreased attenuation within the white matter tracts of the supratentorial brain, consistent with microvascular disease changes. Normal basal ganglia and thalami. Normal brainstem. Normal cerebellum. There is no intracranial hemorrhage. There are no findings of an acute ischemic infarction. Atherosclerotic calcification of the vertebral arteries and cavernous portions of the internal carotid arteries bilaterally. Normal visualized paranasal sinuses. CT/Brain/Head without Contrast IMPRESSION: Chronic involutional changes of the brain. Electronically Signed: Abdirahman Boo MD at 9:00 EDT ,
--- NOTE | 2023-10-21 08:16 | CT_ITS ---
STUDY: CT CERVICAL SPINE WITHOUT CONTRAST REASON FOR EXAM: Female, 67 years old. Injury/Pain RADIATION DOSAGE (If Supplied By Facility): CTDIvol = ( 12.51 ) mGy, DLP = ( 202.21 ) mGycm TECHNIQUE: High resolution transaxial imaging was performed without contrast material. Sagittal and coronal images were reconstructed. Individualized dose optimization techniques were used for this CT. COMPARISON: Comparison is made with prior study dated October 11, 2023. FINDINGS: Normal craniovertebral junction. There are degenerative changes of the anterior atlantoaxial articulation. Normal odontoid process. There is straightening of the normal cervical lordosis. Multilevel spondylosis. C2-3: Facet joint osteoarthritis worse on the left side. No significant stenosis seen. C3-4: Moderate degree of disc space narrowing. Facet joint osteoarthritis and hypertrophy worse on the left side. Uncovertebral arthrosis. Mild degree of left neural foraminal stenosis. C4-5: Moderate degree of disc space narrowing. Spondylosis. Uncovertebral arthrosis. Mild degree of bilateral neural foraminal stenosis. C5-6: Marked degree of disc space narrowing. Spondylosis. Uncovertebral arthrosis. Bilateral neural foraminal stenosis. C6-7: Marked degree of disc space narrowing. Spondylosis. Uncovertebral arthrosis. Bilateral neural foraminal stenosis. Mild degree of central canal stenosis. C7-T1: Normal endplates. Normal disc height and morphology. Normal central canal and intervertebral neuroforamina. Normal visualized soft tissue structures. CT/Spine Cervical without Contras IMPRESSION: Multilevel degenerative changes, as described above. Electronically Signed: Abdirahman Boo MD at 9:10 EDT ,
--- NOTE | 2023-10-21 08:26 | ED.VIS.FALL ---
HPI HPI - Fall History of Present Illness Chief Complaint: Fall Informant: patient Narrative Narrative: Patient is a 68 year old female with history of schizophrenia with tardive dyskinesia presenting from intermediate for frequent falls. Patient had anther fall this morning. Was complaining of right shoulder pain to brother who is her POA. Patient currently is living in a intermediate room by the [facility] but he feels that with her frequent falls that she needs a higher level of care. Patient had another fall this morning. Patient has been seen a couple times over the past few weeks in our ER for falls. Patient currently denies any complaints to me however she is a poor historian. She does answer yes and no to questions seemingly appropriately. She is not on any blood thinners. She denies any in her head but cannot tell me the specifics of how she fell this morning. Patient's brother is concerned that she needs a higher level of care than what she is receiving at her current living situation and does not want her going back there. He is interested in getting her in a memory care unit versus nursing facility. [facility] Medical History Hypertension Schizophrenia Anxiety Depression Home Medications ?Medication ?Instructions ?Recorded ?Last Taken ?Type metoprolol succinate 25 mg 25 mg PO DAILY 07/11/21 Unknown History tablet,extended release 24 hr multivitamin with folic acid 400 1 tab PO DAILY 10/16/23 Unknown History mcg tablet (Daily-Christiano (with folic acid)) Allergy/AdvReac Type Severity Reaction Status Date / Time cat dander Allergy Itching Verified 10/21/23 07:51 house dust Allergy Itching Verified 10/21/23 07:51 amoxicillin AdvReac Unknown Verified 10/21/23 07:51 aspirin AdvReac Nausea/Vom/ Verified 10/21/23 07:51 Diarrhea Social History housing: other Smoking Status: Never smoker ROS ROS ED ROS Narrative Report of frequent falls and right shoulder pain from brother?POA Review of Systems ROS Unobtainable: due to mental condition EXAM Physical Exam Const Vital Signs: 10/21/23 07:47 10/21/23 07:52 Temperature 98.7 F Temperature Source Oral Pulse Rate 86 Respiratory Rate 18 Respiratory Effort Normal Non-Labored Respiratory Depth Normal Respiratory Pattern Normal Blood Pressure 167/103 H Blood Pressure Mean 124 Pulse Ox 96 Oxygen Delivery Method Room Air Positive well nourished and well developed General Appearance ED: well developed and NAD HEENT Reports normocephalic HEENT Narrative: Bilateral cerumen impactions, no signs of basilar skull fracture. Dry mucosal membranes atraumatic; Negative for contusion, hematoma or tenderness Eyes PERRL and EOMs intact bilaterally Neck General: Negative for tenderness Chest Wall inspection of chest normal and palpation of chest normal Resp normal respiratory effort and clear to auscultation bilaterally Cardio regular rate, regular rhythm and no murmurs GI non-tender and non-distended Back/Spine Back/Spine Narrative: No midline tenderness appreciated Extremity Extremity Narrative: No obvious deformity. I am not able to elicit pain with palpation of the major joints or range of motion. Pelvis is stable. No rotational deformity of the extremities. Neuro moves all extremities and no focal motor deficits Neuro Narrative: Patient is tremulous which is consistent with her history of tardive dyskinesia. Answers questions with yes no responses Sensorium / Orientation: alert and oriented to person Psych mental status grossly normal Skin Skin Narrative: Small area of ecchymosis over her distal radius the right lower extremity. Ecchymosis with no underlying hematoma of the right mid anterior thigh. MDM MDM MDM Narrative Medical decision making narrative: Patient is evaluated for frequent falls and concern for right shoulder injury. Patient appears nontoxic but does clinically appear dehydrated. Of note this is the patient's third ER visit this month for falls. Lab work is obtained as well as CT of the head, cervical spine and x-ray of the shoulder and wrist on the right. X-rays reviewed by myself as well as radiology do not show any acute process such as fracture or dislocation however the right shoulder does show hypertrophic osteoarthritis of the AC joint with an inferior osseous spur present. Lab work is consistent with dehydration, she has elevation of her creatinine from a baseline of 0.8-1.24. Her valproic acid level is found to be subtherapeutic at 22. Urinalysis isConsistent with dehydration as well as urinary tract infection. Urine culture is sent. Discussed with hospitalist who will start the patient on Rocephin. Patient will be admitted for urinary tract infection complicated by dehydration, PING and also evaluation from PT OT and for possible placement. History & Record Review Discussion w/independent historian: Family (Brother Moe- see HPI) Lab Data Attestation: I reviewed the patient's lab results. Labs: Laboratory Results - last 24 hr 10/21/23 08:23 WBC 9.1 RBC 4.37 Hgb 13.1 Hct 40.4 MCV 92.4 MCH 30.0 MCHC 32.4 RDW Std Deviation 45.2 H RDW Coeff of Laith 13.2 Plt Count 281 MPV 9.8 Immature Gran % (Auto) 0.300 Neut % (Auto) 74.4 H Lymph % (Auto) 16.8 L [place] % (Auto) 7.4 Eos % (Auto) 0.8 Baso % (Auto) 0.3 Absolute Neuts (auto) 6.7 Absolute Lymphs (auto) 1.52 Nucleated RBC % 0 Sodium 135 L Potassium 3.5 Chloride 100 Carbon Dioxide 26.0 Anion Gap 9 BUN 21 H Creatinine 1.24 H Estim Creat Clear Calc 37.50 Est GFR (MDRD) Af Amer 55 L Est GFR (MDRD) Non-Af 46 L BUN/Creatinine Ratio 16.9 Glucose 102 Calcium 9.4 Total Bilirubin 0.70 AST 18 ALT 32 Alkaline Phosphatase 70 Total Creatine Kinase 36 Total Protein 7.0 Albumin 3.3 Globulin 3.7 Albumin/Globulin Ratio 0.9 Valproic Acid 22 L Radiography Diagnostic Testing: Clinical Impression(s) from Imaging Studies Brain CT 10/21/23 08:15 IMPRESSION: Chronic involutional changes of the brain. Electronically Signed: Abdirahman Boo MD at 9:00 EDT , Cervical Spine CT 10/21/23 08:16 IMPRESSION: Multilevel degenerative changes, as described above. Electronically Signed: Abdirahman Boo MD at 9:10 EDT , Shoulder X-Ray 10/21/23 08:38 IMPRESSION: There is hypertrophic osteoarthrosis of the right acromioclavicular joint. Electronically Signed: Abdirahman Boo MD at 9:11 EDT , Wrist X-Ray 10/21/23 08:38 IMPRESSION: Normal x-ray examination of the wrist. Electronically Signed: Abdirahman Boo MD at 9:11 EDT , Management Discussion w/another healthcare provider: Hospitalist Discharge Plan Dx/Rx/DC Orders Clinical Impression: PING (acute kidney injury), Acute UTI, Falls frequently, Acute dehydration Disposition Disposition: Acute Care [facility] Discharge Date/Time: 10/21/23 10:08
--- NOTE | 2023-10-21 08:32 | ED.RN ---
THIS RN SPOKE WITH PT'S POA. QIANA INSISTS PT NOT GO BACK TO [facility] DUE TO NEEDING HIGHER ACUITY CARE. THIS RN DISCUSSED THE PROCESS OF ADMISSION TO POA AND HE VERBALIZED UNDERSTANDING. DR. TOLENTINO ACKNOWLEDGES POA REQUESTS. PENDING FURTHER STUDIES.
[2023-10-21 08:33] LABS: Absolute Lymphocyte Count 1.52 X10^3/uL (0.83-4.51); Absolute Neutrophil Count 6.7 X10^3/uL (2.0-7.7); Basophil# 0.03 X10^3/uL; Basophil% 0.3 % (0-1); Eosinophil# 0.07 X10^3/uL; Eosinophils% 0.8 % (0-5); Hematocrit 40.4 % (37-47); Hemoglobin 13.1 g/dL (12.0-15.0); Lymphocyte # 1.52 X10^3/ul (0.83-4.51); Lymphocyte % 16.8 % (19-41); Mean Corp Hgb Conc 32.4 g/dL (32-36); Mean Corpuscular Volume 92.4 fL (81-99); Mean Platelet Vol. 9.8 fl (6.2-12.0); Monocyte# 0.67 X10^3/uL; Monocyte% 7.4 % (0-10); NRBC Flagged by Analyzer 0 % (0-5); Neutrophil # 6.73 X10^3/uL (2.7-7.7); Neutrophil % 74.4 % (47-70); Platelet Count 281 K/mm3 (150-450); RBC Distribution Width CV 13.2 % (11.6-14.6); RBC Distribution Width SD 45.2 fl (35.1-43.9); Red Blood Count 4.37 M/mm3 (4.2-5.4); White Blood Count 9.1 K/mm3 (4.4-11.0)
--- NOTE | 2023-10-21 08:38 | RAD_ITS ---
STUDY: X-RAY - RIGHT SHOULDER REASON FOR EXAM: Female, 67 years old. Injury/Pain TECHNIQUE: 3 view(s) of the shoulder. COMPARISON: None. FINDINGS: Normal glenohumeral articulation. There is hypertrophic osteoarthrosis of the acromioclavicular joint with inferior osseous spur formation. Normal acromion. Normal humeral head and visualized proximal humerus. The soft tissue structures are unremarkable. Normal visualized pulmonary apex. RAD/Shoulder min 2 Views IMPRESSION: There is hypertrophic osteoarthrosis of the right acromioclavicular joint. Electronically Signed: Abdirahman oBo MD at 9:11 EDT ,
--- NOTE | 2023-10-21 08:38 | RAD_ITS ---
STUDY: X-RAY - RIGHT WRIST REASON FOR EXAM: Female, 67 years old. Injury/Pain TECHNIQUE: 3 view(s) of the wrist were obtained. COMPARISON: None. FINDINGS: Normal visualized distal radius and ulna. Normal radiocarpal articulation. Normal distal radioulnar articulation. Normal carpal bones. Normal carpal articulations. Normal carpometacarpal articulation of the thumb. Normal second through fifth carpometacarpal articulations. Normal visualized metacarpal bones. The soft tissue structures are unremarkable. RAD/Wrist min 3 Views IMPRESSION: Normal x-ray examination of the wrist. Electronically Signed: Abdirahman Boo MD at 9:11 EDT ,
[2023-10-21 08:47] LABS: ALB/GLOB Ratio 0.9 RATIO (0.9-2.4); AST(SGOT) 18 U/L (15-37); Alanine Aminotransfer ALT/SGPT 32 U/L (13-56); Albumin, Serum 3.3 g/dL (3.2-5.0); Alkaline Phosphatase 70 U/L (45-117); Anion Gap 9 (5-15); BUN 21 mg/dL (7-18); BUN/Creat Ratio 16.9 RATIO (10-20); Calcium,Total 9.4 mg/dL (8.5-10.1); Chloride 100 mmol/L (98-107); Creatinine, Serum 1.24 mg/dL (0.55-1.02); EST Glomerular Filtration Rate 46 mL/min (>60); Est Glom Filt Rate - Afr Amer 55 mL/min (>60); Globulin 3.7 g/dL (2.2-4.2); Glucose 102 mg/dL (74-106); Potassium 3.5 mmol/L (3.5-5.1); Sodium Level 135 mmol/L (136-145)
[2023-10-21 08:56] LABS: CPK Total, Creatine Kinase 36 U/L (26-192)
[2023-10-21 09:01] LABS: Valproic Acid (Depakene) Level 22 ug/mL (50-100)
[2023-10-21] MEDS: 0.9% Normal Saline (1000mL) 1,000 ML 125 ML IV ×3 (09:43→21:58)
[2023-10-21 09:56] LABS: Color, Urine Amber (Yellow); Glucose, Dipstick Normal (Normal); Ketone-Dipstick 5 mg/dl (Negative); Leukocyte Esterase-Dipstick 500 /ul (Negative); Nitrite-Dipstick Negative (Negative); Occult Blood-Urine 250 /ul (Negative); Protein-Dipstick 30 mg/dl (Negative); Specific Gravity, Urine 1.025 (1.002-1.030); Urine Bilirubin Dipstick Negative (Negative); Urine Clarity Cloudy (Clear); Urine Urobilinogen 1 mg/dl (Normal)
[2023-10-21 10:12] LABS: Hyaline Cast 25-50 SEEN /lpf (0-5)
[2023-10-21 10:13] LABS: Bacteria 2+ /hpf (None Seen); Red Blood Cells-Urine 10-25 SEEN /hpf (0-5); Squamous Epithelial Cells - UA 5-10 SEEN /hpf (5-10); White Blood Cells >100 SEEN /hpf (0-5)
[2023-10-21 10:14] LABS: Amorphous Sediment 1+; Calcium Oxalate Crystals Ur 1+ /hpf (<or=2+); Mucous, Urine 1+ /hpf (<or=2+)
--- NOTE | 2023-10-21 10:47 | CASEMGMT ---
Social Work- SW left for pt brother and guardian. MAISHA Green
[2023-10-21] MEDS: Multivitamins,Therapeutic Tablet 1 TABLET PO (11:57)
[2023-10-21] MEDS: Metoprolol(XL)Succ 25 MG Tablet PO (11:57)
[2023-10-21] MEDS: Ceftriaxone 1 GM/50 ML BAG IV (11:57)
[2023-10-21] MEDS: Heparin Injection (Vial) 5,000 UNIT/ML VIAL 5000 UNIT SC ×2 (11:58→22:00)
--- NOTE | 2023-10-21 13:42 | PCM.HP.STD ---
HPI - General General Date of Admission: 10/21/23 Date of Service: 10/21/23 Chief Complaint: Generalized debility, weakness HPI Narrative DEONDRE KAPLAN, is a 67 F who presents to the emergency room for evaluation of generalized weakness and debility, she lives at a [facility] due to schizophrenia, she has had frequent falls recently and the [facility] does not feel she is appropriate to stay there. Workup in the emergency room included labs which showed a normal white blood cell count, chemistry profile was remarkable for creatinine of 1.24 and a BUN of 21, sodium was 135. Urinalysis indicated cystitis with WBCs greater than 100 and +2 bacteria. Imaging studies were done to rule out any fracture or dislocation, these imaging studies were all negative. Patient will be admitted to [place] [id number] for acute kidney injury and acute cystitis as well as acute debility, she will need placement in a chcf facility. [facility] Medical History Hypertension Schizophrenia Anxiety Depression Home Medications ?Medication ?Instructions ?Recorded ?Last Taken ?Type metoprolol succinate 25 mg 25 mg PO DAILY 07/11/21 Unknown History tablet,extended release 24 hr multivitamin with folic acid 400 1 tab PO DAILY 10/16/23 Unknown History mcg tablet (Daily-Christiano (with folic acid)) divalproex 250 mg tablet,delayed 250 mg PO DAILY 10/21/23 Unknown History release seizures/migraines/bipolar risperidone 1 mg tablet 1 mg PO QHS schizophrenia 10/21/23 Unknown History Allergy/AdvReac Type Severity Reaction Status Date / Time cat dander Allergy Itching Verified 10/21/23 07:51 house dust Allergy Itching Verified 10/21/23 07:51 amoxicillin AdvReac Unknown Verified 10/21/23 07:51 aspirin AdvReac Nausea/Vom/ Verified 10/21/23 07:51 Diarrhea Social History housing: other Smoking Status: Never smoker ROS ROS Narrative Review of systems was unobtainable due to the patient's schizophrenia with cognitive impairment Review of Systems ROS Unobtainable: due to mental condition Vital Signs Vital Signs Vital Signs: 10/21/23 07:47 10/21/23 07:52 10/21/23 09:44 Temperature 98.7 F 97.7 F L Temperature Source Oral Pulse Rate 86 83 Respiratory Rate 18 18 Respiratory Effort Normal Non-Labored Respiratory Depth Normal Respiratory Pattern Normal Blood Pressure 167/103 H 126/92 H Blood Pressure Mean 124 103 Blood Pressure Source Blood Pressure Position Blood Pressure Location Pulse Ox 96 97 Oxygen Delivery Method Room Air 10/21/23 09:46 10/21/23 10:36 10/21/23 11:57 Temperature 97.7 F L 97.7 F L Temperature Source Temporal Temporal Pulse Rate 83 75 75 Respiratory Rate 18 18 Respiratory Effort Respiratory Depth Respiratory Pattern Blood Pressure 126/92 H 150/78 H Blood Pressure Mean 103 102 Blood Pressure Source Monitor Blood Pressure Position Semi-Fowlers Blood Pressure Location Right Arm Pulse Ox 97 98 Oxygen Delivery Method Room Air Room Air Weight Weight: 62.142 kg Body Mass Index (BMI) 24.3 Physical Exam Const alert and no apparent distress Constitutional Narrative: Patient is not oriented as to person, she told nursing that her name was not Deondre Schar. Patient exhibits cognitive impairment. General Appearance: cooperative, well kempt and well developed HEENT normocephalic, head/scalp atraumatic and moist oral mucous membranes Eyes PERRL, EOMs intact bilaterally and conjunctivae normal Neck supple, no JVD, thyroid normal and no carotid bruits General: trachea midline Resp normal respiratory effort, no retractions, no use of accessory muscles and clear to auscultation bilaterally Auscultation: Negative for rales, rhonchi or wheezes Cardio regular rate, regular rhythm, S1 normal heart sound, S2 normal heart sound, no murmurs, no rub and no gallops GI normal to inspection, nondistended, normoactive bowel sounds, soft to palpation, non-tender and non-distended Extremity no clubbing, cyanosis or edema Skin no rashes or lesions noted General Skin Exam: no breakdown Neuro CN's II-XII intact bilaterally, moves all extremities, no focal motor deficits and no sensory deficits noted Sensorium / Orientation: awake and alert Speech: speech normal Psych Psych Narrative: Patient has blunted affect, she is confused Results Lab / Micro Data 10/21/23 08:23 10/21/23 08:23 Labs: Laboratory Results - last 24 hr 10/21/23 08:23: WBC 9.1, RBC 4.37, Hgb 13.1, Hct 40.4, MCV 92.4, MCH 30.0, MCHC 32.4, RDW Std Deviation 45.2 H, RDW Coeff of Laith 13.2, Plt Count 281, MPV 9.8, Immature Gran % (Auto) 0.300, Neut % (Auto) 74.4 H, Lymph % (Auto) 16.8 L, [place] % (Auto) 7.4, Eos % (Auto) 0.8, Baso % (Auto) 0.3, Absolute Neuts (auto) 6.7, Absolute Lymphs (auto) 1.52, Nucleated RBC % 0, Sodium 135 L, Potassium 3.5, Chloride 100, Carbon Dioxide 26.0, Anion Gap 9, BUN 21 H, Creatinine 1.24 H, Estim Creat Clear Calc 37.50, Est GFR (MDRD) Af Amer 55 L, Est GFR (MDRD) Non-Af 46 L, BUN/Creatinine Ratio 16.9, Glucose 102, Calcium 9.4, Total Bilirubin 0.70, AST 18, ALT 32, Alkaline Phosphatase 70, Total Creatine Kinase 36, Total Protein 7.0, Albumin 3.3, Globulin 3.7, Albumin/Globulin Ratio 0.9, Valproic Acid 22 L 10/21/23 09:45: Urine Color Christina, Urine Clarity Cloudy, Urine pH 5.0, Ur Specific [place] 1.025, Urine Protein 30 H, Urine Glucose (UA) Normal, Urine Ketones 5 H, Urine Occult Blood 250 H, Urine Nitrite Negative, Urine Bilirubin Negative, Urine Urobilinogen 1 H, Ur Leukocyte Esterase 500 H, Urine RBC 10-25 SEEN, Urine WBC >100 SEEN, Ur Squamous Epith Cells 5-10 SEEN, Calcium Oxalate Crystal 1+, Amorphous Sediment 1+, Urine Bacteria 2+, Hyaline Casts 25-50 SEEN, Urine Mucus 1+ Imaging Radiology Impression Brain CT 10/21/23 08:15 IMPRESSION: Chronic involutional changes of the brain. Electronically Signed: Abdirahman Boo MD at 9:00 EDT , Cervical Spine CT 10/21/23 08:16 IMPRESSION: Multilevel degenerative changes, as described above. Electronically Signed: Abdirahman Boo MD at 9:10 EDT , Shoulder X-Ray 10/21/23 08:38 IMPRESSION: There is hypertrophic osteoarthrosis of the right acromioclavicular joint. Electronically Signed: Abdirahman Boo MD at 9:11 EDT , Wrist X-Ray 10/21/23 08:38 IMPRESSION: Normal x-ray examination of the wrist. Electronically Signed: Abdirahman Boo MD at 9:11 EDT , Assessment & Plan Assessment/Plan (1) Acute UTI: PLAN: Plan 1. Acute kidney injury-patient was admitted to [facility] 3 she will be given IV fluids, labs will be monitored #2 acute cystitis-patient was placed on IV Rocephin #3 acute debility secondary to schizophrenia-PT and OT will work with patient, she will need placement in a chcf facility #4 schizophrenia-I do not have a list of her medications at the time of this dictation Total clinical time spent by myself addressing the patient's medical issues, reviewing all of her data, and collaborating with patient's care team: 55 minutes Charges/Coding Visit Charges Inpatient E&M: 39693 Init Hosp L2
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
--- NOTE | 2023-10-21 15:48 | CASEMGMT ---
Social Work- SW received information from Mariah: checked [employer] and it does look like she has NF/Waiver and she was eligible with LTC until 03/23/24. MAISHA Green
--- NOTE | 2023-10-21 16:10 | CASEMGMT ---
Social Work Initial referral sent to [facility] per pt's brother's request. did also print off a list from [facility] of long-term facilities in network w/pt's insurance, preferred geographic area, and complete w/quality and resource use data in the event [facility] cannot accept pt and pt's brother/guardian needs to give additional choices. Micheline Paez, HENRY-S
--- NOTE | 2023-10-21 16:30 | NURSING ---
This RN has 3 different copies of Med lists that pt takes. One is from the halfway that Ms. Werner resides in, the other is from the counseling Center, the 3rd was from [facility]. The 3 copies were similar but also different so this RN called [facility] and spoke to Kandis and asked her what the patient takes. She takes a lot of prn medications but the only ones she takes everyday are Dvialproex 250mg daily, Metoprol 25mg ER 1 tab daily, Risperdone 1mg daily, Daily vitamin 1 tablet daily, and Amantadine 100mg capsulte daily. All 3 copies are in patients chart.
[2023-10-21] MEDS: RisperiDONE 1 MG Tablet PO (21:59)
[2023-10-22] VITALS (8 sets, daily range): BP systolic 132–150; BP diastolic 63–78; PULSE 70–86; RESP 16–22; TEMP 36.4–37.1; O2SAT 16–98
[2023-10-22] MEDS: 0.9% Normal Saline (1000mL) 1,000 ML 125 ML IV (04:29)
[2023-10-22 06:08] LABS: Absolute Lymphocyte Count 2.54 X10^3/uL (0.83-4.51); Absolute Neutrophil Count 4.8 X10^3/uL (2.0-7.7); Basophil# 0.04 X10^3/uL; Basophil% 0.5 % (0-1); Eosinophil# 0.19 X10^3/uL; Eosinophils% 2.3 % (0-5); Hematocrit 37.2 % (37-47); Hemoglobin 11.9 g/dL (12.0-15.0); Lymphocyte # 2.54 X10^3/ul (0.83-4.51); Lymphocyte % 30.7 % (19-41); Mean Corpuscular Volume 93.7 fL (81-99); Mean Platelet Vol. 10.1 fl (6.2-12.0); Monocyte# 0.65 X10^3/uL; Monocyte% 7.9 % (0-10); NRBC Flagged by Analyzer 0 % (0-5); Neutrophil # 4.83 X10^3/uL (2.7-7.7); Neutrophil % 58.4 % (47-70); Platelet Count 228 K/mm3 (150-450); RBC Distribution Width CV 13.2 % (11.6-14.6); RBC Distribution Width SD 45.3 fl (35.1-43.9); Red Blood Count 3.97 M/mm3 (4.2-5.4); White Blood Count 8.3 K/mm3 (4.4-11.0)
[2023-10-22] MEDS: Multivitamins,Therapeutic Tablet 1 TABLET PO (07:59)
[2023-10-22] MEDS: Divalproex Sodium 250 MG Tablet PO (07:59)
[2023-10-22] MEDS: Heparin Injection (Vial) 5,000 UNIT/ML VIAL 5000 UNIT SC ×2 (08:00→20:28)
[2023-10-22] MEDS: Metoprolol(XL)Succ 25 MG Tablet PO (08:00)
[2023-10-22] MEDS: Ceftriaxone 1 GM/50 ML BAG IV (09:39)
[2023-10-22] MEDS: Ensure Plus High Protein 120 ML LIQUID PO ×4 (09:41→20:35)
--- NOTE | 2023-10-22 11:22 | PCM.PN.HOSP ---
Reason for Visit Reason for Visit: Diagnoses Urinary tract infection, site not specified (10/21/23) Objective Data Objective Data Vital Signs: Vital Signs Temp Pulse Resp BP Pulse Ox O2 Del Method 97.6 F L 70 16 150/77 H 98 Room Air 10/22/23 08:54 10/22/23 08:54 10/22/23 08:54 10/22/23 08:54 10/22/23 08:54 10/22/23 08:54 Oxygen Delivery Method Room Air Weight: 137 lb Body Mass Index (BMI) 24.3 Intake & Output: Intake and Output for Last 24 Hours 10/20/23 10/21/23 10/22/23 23:59 23:59 23:59 Intake Total 1581.25 / 1581.25 1845.83 / 1845.83 Balance 1581.25 / 1581.25 1845.83 / 1845.83 Lab / Micro Data 10/22/23 05:48 10/21/23 08:23 Labs: Laboratory Results - last 24 hr 10/22/23 05:48: WBC 8.3, RBC 3.97 L, Hgb 11.9 L, Hct 37.2, MCV 93.7, MCH 30.0, MCHC 32.0, RDW Std Deviation 45.3 H, RDW Coeff of Laith 13.2, Plt Count 228, MPV 10.1, Immature Gran % (Auto) 0.200, Neut % (Auto) 58.4, Lymph % (Auto) 30.7, [place] % (Auto) 7.9, Eos % (Auto) 2.3, Baso % (Auto) 0.5, Absolute Neuts (auto) 4.8, Absolute Lymphs (auto) 2.54, Nucleated RBC % 0 Micro: Microbiology 10/21/23 09:45 Urine, Clean Catch Urine Culture - Preliminary Culture exhibits no growth. Physical Exam Narrative Patient from senior care. Not able to perform ADL. Was admitted with PING and cystitis. Physical exam General: Alert, Oriented x3, Cooperative. HEENT: Atraumatic, PERRLA, EOMI, Normocephalic Oral: No Gingival or Mucosal Lesions/ Ulcerations Neck: Supple, No JVD, Negative Carotid Bruits Chest wall/Lungs: Air entry diminished in bilateral lung bases. No crepitation/rhonchi Cardiovascular: Regular rate, Regular Rhythm, Normal S1, Normal S2, No M/G/R Abdomen: Bowel Sounds Present, Soft, Non Tender, Non-Distended : No dysuria. No renal angle tenderness. No suprapubic tenderness. Extremities: No edema, Capillary Refill Less than 3 Seconds Skin: No rashes, No breakdown Musculoskeletal: No Tenderness to Palpation of Joints or Extremities Neurological: Cranial nerves II-XII grossly intact, DTR 2+/4. No acute focal neurological deficit. Chronic stuttering/takes time to communicate Psych/Mental Status:Flat affect. Assessment & Plan Assessment/Plan (1) Acute UTI: PLAN: Plan This is a 67-year-old female was admitted from a senior care because of frequent fall inability to perform ADL along with PING and cystitis. 1. Acute kidney injury-patient was admitted to [place] [id number].baseline creatinine distance around 0.86. Was admitted with 1.24. Is being treated with IV fluids and then discontinued, labs reviewed #2 acute cystitis-UA shows WBC more than 100 cells, RBC 10-25 cells, LE 500, nitrite negative. Patient on IV Rocephin. Preliminary urine culture shows no growth. #3 acute debility secondary to schizophrenia-PT and OT, and possible SNF placement #4 schizophrenia-I do not have a list of her medications at the time of this dictation T Charges/Coding Visit Charges Inpatient E&M: 65568 Subs Hosp L2
[2023-10-22 11:41] LABS: Anion Gap 5 (5-15); BUN 13 mg/dL (7-18); BUN/Creat Ratio 18.6 RATIO (10-20); Calcium,Total 7.9 mg/dL (8.5-10.1); Chloride 108 mmol/L (98-107); EST Glomerular Filtration Rate 88 mL/min (>60); Est Glom Filt Rate - Afr Amer 107 mL/min (>60); Estimated Creatinine Clearance 55.68 ml/min; Glucose 94 mg/dL (74-106); Potassium 3.4 mmol/L (3.5-5.1); Sodium Level 138 mmol/L (136-145)
[2023-10-22] MEDS: RisperiDONE 1 MG Tablet PO (20:28)
[2023-10-23 03:25] VITALS: BP 136/56; PULSE 75; RESP 16; TEMP 37; O2SAT 97
[2023-10-23 09:28] VITALS: BP 137/72; PULSE 77; RESP 16; TEMP 36.6; O2SAT 98
[2023-10-23] MEDS: Heparin Injection (Vial) 5,000 UNIT/ML VIAL 5000 UNIT SC ×2 (09:30→20:13)
[2023-10-23] MEDS: Ceftriaxone 1 GM/50 ML BAG IV (09:30)
[2023-10-23 09:31] VITALS: PULSE 77
[2023-10-23] MEDS: Multivitamins,Therapeutic Tablet 1 TABLET PO (09:31)
[2023-10-23] MEDS: Divalproex Sodium 250 MG Tablet PO (09:31)
[2023-10-23] MEDS: Metoprolol(XL)Succ 25 MG Tablet PO (09:31)
[2023-10-23] MEDS: 0.9% Saline Lock 10 ML Syringe IV (09:43)
[2023-10-23] MEDS: 0.9% Normal Saline (250mL Bag) 250 ML 15 ML IV (10:05)
--- NOTE | 2023-10-23 11:54 | PCM.PN.HOSP ---
Reason for Visit Reason for Visit: Diagnoses Urinary tract infection, site not specified (10/21/23) Objective Data Objective Data Vital Signs: Vital Signs Temp Pulse Resp BP Pulse Ox O2 Del Method 97.8 F 77 16 137/72 H 98 Room Air 10/23/23 09:28 10/23/23 09:31 10/23/23 09:28 10/23/23 09:28 10/23/23 09:28 10/23/23 09:28 Oxygen Delivery Method Room Air Weight: 137 lb Body Mass Index (BMI) 24.3 Intake & Output: Intake and Output for Last 24 Hours 10/21/23 10/22/23 10/23/23 23:59 23:59 23:59 Intake Total 1581.25 / 1581.25 2793.75 / 2793.75 50 / 50 Balance 1581.25 / 1581.25 2793.75 / 2793.75 50 / 50 Lab / Micro Data 10/22/23 05:48 10/22/23 05:48 Micro: Microbiology 10/21/23 09:45 Urine, Clean Catch Urine Culture - Final Mixed Gram Positive Organisms Physical Exam Narrative Patient from halfway. She has more resting tremor. Not able to perform ADL. Was admitted with PING Physical exam General: Alert, Oriented x3, Cooperative. HEENT: Atraumatic, PERRLA, EOMI, Normocephalic Oral: No Gingival or Mucosal Lesions/ Ulcerations Neck: Supple, No JVD, Negative Carotid Bruits Chest wall/Lungs: Air entry diminished in bilateral lung bases. No crepitation/rhonchi Cardiovascular: Regular rate, Regular Rhythm, Normal S1, Normal S2, No M/G/R Abdomen: Bowel Sounds Present, Soft, Non Tender, Non-Distended : Cannot say about dysuria. No renal angle tenderness. No suprapubic tenderness. Extremities: No edema, Capillary Refill Less than 3 Seconds Skin: No rashes, No breakdown Musculoskeletal: No Tenderness to Palpation of Joints or Extremities Neurological: Cranial nerves II-XII grossly intact, DTR 2+/4. Resting tremor but improved with action. No acute focal neurological deficit. Chronic stuttering/takes time to communicate Psych/Mental Status:Flat affect. Assessment & Plan Assessment/Plan (1) Acute UTI: PLAN: Plan This is a 67-year-old female was admitted from a halfway because of frequent fall inability to perform ADL along with PING and cystitis. 1. Acute kidney injury-patient was admitted to [facility] 3.baseline creatinine distance around 0.86. Was admitted with 1.24. Is being treated with IV fluids and then discontinued, labs reviewed 10/22: Repeat BUNs/creatinine not normal, 13/0.7. #2 possible asymptomatic bacteriuria/contaminants-UA shows WBC more than 100 cells, RBC 10-25 cells, LE 500, nitrite negative. Patient on IV Rocephin. Preliminary urine culture shows no growth. Reviewed culture shows mixed gram-positive organism, Mixed contaminants. Patient is poor historian and cannot say about lower urinary tract symptoms therefore had antibiotic for 3 days. Antibiotic is discontinued now. #3 acute debility secondary to schizophrenia an tardive dyskinesia-PT and OT, and possible SNF placement she has resting tremor and tardive dyskinesia of upper extremity, orolingual facial muscles and neck. Continue maintaining #4 schizophrenia-on divalproex, amantadine and risperidone Microbiology Past 72 Hours 10/21/23 09:45 Urine, Clean Catch Urine Culture - Final Mixed Gram Positive Organisms Charges/Coding Visit Charges Inpatient E&M: 00531 Subs Hosp L2
[2023-10-23 16:43] VITALS: BP 155/72; PULSE 79; RESP 18; TEMP 36.8; O2SAT 98
[2023-10-23] MEDS: Ensure Plus High Protein 120 ML LIQUID PO ×2 (16:47→20:12)
[2023-10-23] MEDS: RisperiDONE 1 MG Tablet PO (20:14)
[2023-10-23 20:21] VITALS: BP 141/66; PULSE 74; RESP 16; TEMP 37.2; O2SAT 98
[2023-10-24 02:00] VITALS: BP 146/74; PULSE 68; RESP 16; TEMP 36.7; O2SAT 98
[2023-10-24] MEDS: Divalproex Sodium 250 MG Tablet PO (07:53)
[2023-10-24] MEDS: Multivitamins,Therapeutic Tablet 1 TABLET PO (07:53)
[2023-10-24 07:54] VITALS: BP 162/87; PULSE 73
[2023-10-24] MEDS: Ensure Plus High Protein 120 ML LIQUID PO ×2 (07:54→13:42)
[2023-10-24] MEDS: Metoprolol(XL)Succ 25 MG Tablet PO (07:54)
[2023-10-24 08:00] VITALS: BP 162/87; PULSE 74; RESP 16; TEMP 36.7; O2SAT 97
--- NOTE | 2023-10-24 08:34 | PN.HOSP_ITS ---
Reason for Visit Reason for Visit: Diagnoses Urinary tract infection, site not specified (10/21/23) Subjective Subjective Denies complaints. Objective Data Objective Data Vital Signs: Vital Signs Temp Pulse Resp BP Pulse Ox O2 Del Method 36.7 C 73 16 162/87 H 98 Room Air 10/24/23 02:00 10/24/23 07:54 10/24/23 02:00 10/24/23 07:54 10/24/23 02:00 10/24/23 02:00 Oxygen Delivery Method Room Air Weight: 62.142 kg Body Mass Index (BMI) 24.3 Intake & Output: Intake and Output for Last 24 Hours 10/22/23 10/23/23 10/24/23 23:59 23:59 23:59 Intake Total 2793.75 / 2793.75 1073.25 / 1073.25 100 / 100 Balance 2793.75 / 2793.75 1073.25 / 1073.25 100 / 100 Lab / Micro Data 10/22/23 05:48 10/22/23 05:48 Micro: Microbiology 10/21/23 09:45 Urine, Clean Catch Urine Culture - Final Mixed Gram Positive Organisms Physical Exam Const alert and no apparent distress HEENT head/scalp atraumatic Resp normal respiratory effort and no retractions Cardio regular rate and regular rhythm GI normal to inspection, nondistended, normoactive bowel sounds and soft to palpation Extremity normal to inspection and full ROM Neuro oriented x3 and moves all extremities Neuro Narrative: tremulous Sensorium / Orientation: awake and alert Assessment & Plan Assessment/Plan (1) Acute UTI: PLAN: Plan PING * resolved. Likely prerenal * No additional work up Abnormal UA * WBC >100, 2+ bacteria. SG 1.025. * UCx mixed organisms. * No additional work up at this time. DC abx. Acute debility * 2/2 dehydration * PT OT eval and treat * [facility] schizophrenia-on divalproex, amantadine and risperidone
--- NOTE | 2023-10-24 10:00 | CASEMGMT ---
Social Work- SW spoke with brother, guardian, Moe, to answer PASRR questions. SW completed PASRR and answered questions from Moe on process for placement. MAISHA Green
[2023-10-24] MEDS: Heparin Injection (Vial) 5,000 UNIT/ML VIAL 5000 UNIT SC (10:09)
[2023-10-24] MEDS: Ceftriaxone 1 GM/50 ML BAG IV (10:10)
[2023-10-24] MEDS: 0.9% Saline Lock 10 ML Syringe IV (10:10)
--- NOTE | 2023-10-24 14:08 | CASEMGMT ---
Discharge Planning [facility] has obtained auth. SW updated. Stefanie Cobos DC Planning Asst.
--- NOTE | 2023-10-24 14:24 | PCM.TXEXTCAR ---
Diet Diet Order/Speech Therapy: 10/21/23 10:22 Diet: Regular - General Food consistency:: Regular Liquid Consistency:: Regular/Thin Is pt able to select menu?: No Diet Comments: needs set up assist at meals, please! Therapies Physical Therapy: Eval and Treat Occupational Therapy: Eval and Treat Problem/Diagnosis (1) Acute UTI: Status: Acute Code(s): N39.0 - Urinary tract infection, site not specified Plan PING resolved. Likely prerenal No additional work up Abnormal UA WBC >100, 2+ bacteria. SG 1.025. UCx mixed organisms. No additional work up at this time. DC abx. Acute debility 2/2 dehydration PT OT eval and treat DC to [facility] schizophrenia-on divalproex, amantadine and risperidone Allergies/Procedures Done in Hospital Allergies cat dander Allergy (Verified 10/21/23 07:51) Itching house dust Allergy (Verified 10/21/23 07:51) Itching amoxicillin Adverse Reaction (Verified 10/21/23 07:51) Unknown aspirin Adverse Reaction (Verified 10/21/23 07:51) Nausea/Vom/Diarrhea Procedures: None Type of Care/Length of Stay Estimated LOS: Convalescent Care Less Than 30 days Type of Care Needed: Skilled Rehab Potential: Fair Prognosis: Fair Additional Orders/Day of Discharge Day of Discharge: 10/24/23 Dietary and Speech Recommendations Dietitian Recommendations/Changes: Continue liberal regular diet as ordered - provide set up assist with meals Will order 4 oz ensure plus high protein 4x/day w/ medpass for increased nutrition if consumed. Discharge Plan Admission Admit Date/Time: 10/21/23 09:37 Primary Reason for Your Visit: debility Attending Provider: Aquilino Hugo Primary Care Provider: Paty Linder [employer] Consulting Providers: Josué uBllard; Mihai Kothari Discharge Orders/Prescriptions Prescriptions: New acetaminophen 325 mg Tablet 650 mg PO Q6H PRN PRN (Reason: Pain 1-10 Or Fever >100.7) Qty: 0 0RF Ensure Plus High Protein 0.08 gram-1.5 kcal/mL Liquid 120 ml PO 4X/DAY Qty: 0 0RF Continued metoprolol succinate 25 mg tablet extended release 24 hr 25 mg PO DAILY divalproex 250 mg tablet,delayed release (DR/EC) 250 mg PO DAILY risperidone 1 mg tablet 1 mg PO QHS amantadine HCl 100 mg capsule 100 mg PO TID PRN multivitamin with folic acid [Daily-Christiano (with folic acid)] 400 mcg tablet 1 tab PO DAILY Referrals / Follow Up: Paty Linder [employer], [employer] [Primary Care Provider] - Within 2 Weeks Disposition Disposition (needs filled in before D/C Order can be placed): [facility] Facility
--- NOTE | 2023-10-24 14:27 | DS.PCM_ITS ---
Providers Date of Admission: 10/21/23 Primary Care Physician: Paty Linder, [facility] Reason For Visit: PING Diagnosis Discharge Diagnosis (1) Acute UTI: Status: Acute Code(s): N39.0 - Urinary tract infection, site not specified Plan PING * resolved. Likely prerenal * No additional work up Abnormal UA * WBC >100, 2+ bacteria. SG 1.025. * UCx mixed organisms. * No additional work up at this time. DC abx. Acute debility * 2/2 dehydration * PT OT eval and treat * DC to [facility] schizophrenia-on divalproex, amantadine and risperidone Medications at Discharge Home Medications metoprolol succinate 25 mg tablet,extended release 24 hr 25 mg PO DAILY blood pressure 07/11/21 multivitamin with folic acid 400 mcg tablet (Daily-Christiano (with folic acid)) 1 tab PO DAILY supplement 10/16/23 amantadine HCl 100 mg capsule 100 mg PO TID PRN abnormal muscle movements 10/21/23 divalproex 250 mg tablet,delayed release 250 mg PO DAILY seizures/migraines/bipolar 10/21/23 risperidone 1 mg tablet 1 mg PO QHS schizophrenia 10/21/23 acetaminophen 325 mg tablet 650 mg (2 x 325 mg) PO Q6H PRN PRN Pain 1-10 Or Fever >100.7 #0 tabs 10/24/23 food supplemt, lactose-reduced 0.08 gram-1.5 kcal/mL oral liquid (Ensure Plus High Protein) 120 ml PO 4X/DAY #0 mL 10/24/23 Hospital Course Operations None Procedures None Summary of Care Provided Minutes Spent on Discharge: 33 Hospital Course: Patient presents with weakness. Patient already had a poor performance status at baseline. Patient was dehydrated on her lab studies and did receive IV fluids which did help. Patient had abnormal urinalysis which is likely due to concentration. Urine culture came back showing mixed organisms so not true infection. Patient will be discharged to [facility] in stable condition peer Weight / BMI Weight Weight: 62.142 kg Body Mass Index (BMI) 24.3 ABG / Lab / Microbiology Data 10/22/23 05:48 10/22/23 05:48 Microbiology: Microbiology 10/21/23 09:45 Urine, Clean Catch Urine Culture - Final Mixed Gram Positive Organisms D/C Instructions Discharge Diet: No restrictions Meaningful Use Info Meaningful Use Meaningful Use Diagnoses (Choose all that apply): None applicable Ischemic Stroke Statin Dosing Therapy Reference: STATIN DOSE THERAPY REFERENCE: * Patients > 75 years receive moderate or high dose statin therapy. * Patients 75 years or YOUNGER should receive HIGH intensity statin dose unless contraindicated. You will be required to document reason for non-treatment if statin daily dose does not meet guidelines. HIGH DOSE STATIN THERAPY DAILY Atorvastatin > than or = to 40 mg Rosuvastatin > than or = to 20 mg Amlodipine + Atorvastatin > than or = to 2.5/40 mg Ezetimibe + Simvastatin 10/80 mg Simvastatin 80mg Discharge Plan Admission Admit Date/Time: 10/21/23 09:37 Primary Reason for Your Visit: debility Attending Provider: Aquilino Hugo Primary Care Provider: Paty Linder NP Consulting Providers: Josué Bullard; Mihai Kothari Discharge Orders/Prescriptions Prescriptions: New acetaminophen 325 mg Tablet 650 mg PO Q6H PRN PRN (Reason: Pain 1-10 Or Fever >100.7) Qty: 0 0RF Ensure Plus High Protein 0.08 gram-1.5 kcal/mL Liquid 120 ml PO 4X/DAY Qty: 0 0RF Continued metoprolol succinate 25 mg tablet extended release 24 hr 25 mg PO DAILY divalproex 250 mg tablet,delayed release (DR/EC) 250 mg PO DAILY risperidone 1 mg tablet 1 mg PO QHS amantadine HCl 100 mg capsule 100 mg PO TID PRN multivitamin with folic acid [Daily-Christiano (with folic acid)] 400 mcg tablet 1 tab PO DAILY Referrals / Follow Up: Paty Linder NP, [facility] [Primary Care Provider] - Within 2 Weeks Disposition Disposition (needs filled in before D/C Order can be placed): Nursing Home Facility Charges/Coding Visit Charges Inpatient E&M: 18025 Disch Hosp >30min
--- NOTE | 2023-10-24 14:39 | PHA.DC_ITS ---
Pharmacy [place] Med Reconciliation Pharmacy Service has performed discharge medication reconciliation for this patient. The patient's discharge medication list was reviewed for discrepancies and discrepancies were resolved. Medications at Discharge Home Medications metoprolol succinate 25 mg tablet,extended release 24 hr 25 mg PO DAILY blood pressure 07/11/21 multivitamin with folic acid 400 mcg tablet (Daily-Christiano (with folic acid)) 1 tab PO DAILY supplement 10/16/23 amantadine HCl 100 mg capsule 100 mg PO TID PRN abnormal muscle movements 10/21/23 divalproex 250 mg tablet,delayed release 250 mg PO DAILY seizures/migraines/bipolar 10/21/23 risperidone 1 mg tablet 1 mg PO QHS schizophrenia 10/21/23 acetaminophen 325 mg tablet 650 mg (2 x 325 mg) PO Q6H PRN PRN Pain 1-10 Or Fever >100.7 #0 tabs 10/24/23 food supplemt, lactose-reduced 0.08 gram-1.5 kcal/mL oral liquid (Ensure Plus Hi gh Protein) 120 ml PO 4X/DAY #0 mL 10/24/23
--- NOTE | 2023-10-24 14:54 | CASEMGMT ---
Social Work- Pt has acceptance and precert for [facility]. MD agreeable that pt is medically ready. Pt guardian, Moe, updated. Moe will call Sandra, counseling case manager at [facility], to inform her. LULY advised d/c can be completed. MAISHA Green
--- NOTE | 2023-10-24 15:01 | CASEMGMT ---
Social Work Collaboration with Jessica Corporate Documentation Coordinator at [facility] today regarding need for PASRR versus 7000 convalescent. Discussed patient's various changes in care over the last few months, and current episode of care related to falls and acute UTI. [facility] able to accept patient and facility obtained skilled level of care under Medicare benefit. Convalescent exemption form completed based on short term skilled care and physician orders. Collaborated with Claire FERRERA, who has been in conversation with the patient's brother/guardian; guardian shared last PASRR attempt was greater than 60 days ago from today; 08.19.2023, so based on this patient is eligible for the 7000 form. [facility] to follow along in the continuum of care of patient for any further PASRR process needs. 7000 copied for current EMR and for the SNF. Plan: Discharge skilled level of care under [facility] ant 7000 completed. -DIYA Salmon
--- NOTE | 2023-10-24 15:14 | CASEMGMT ---
Discharge Planning Discharge orders, signed med list, and transport time sent to [facility] via careport. Physicians will transport patient by cot at 4p. Nursing, SW, and patients brother/guardian (Moe) updated. Stefanie Cobos DC Planning Asst.
[2023-10-24 16:00] VITALS: BP 147/61; PULSE 79; RESP 16; TEMP 36.4; O2SAT 97
== END 2023-10-24 16:50 | disposition skilled nursing facility (03) | DRG 641 ==
LOC: ED 08:46 → MS3 09:55
PROVIDERS: Internal Medicine; Admitting Provider Internal Medicine; Emergency Provider Emergency Medicine; PCP Nurse Practitioner Primary Care
DX: E86.0 Dehydration (principal); N17.9 Acute kidney failure, unspecified; F20.9 Schizophrenia, unspecified; I10 Essential (primary) hypertension; R82.998 Other abnormal findings in urine; R53.81 Other malaise; R29.6 Repeated falls; Z79.899 Other long term (current) drug therapy
CPT/HCPCS: 36415; 70450; 72125; 73030; 73110; 80048; 80053; 80164; 81001; 82550; 85025; 87086; 87088; 97110; 97162; 97166; 97530; 97535; 99284; J7030; J7050; A4216

== ENCOUNTER 2023-11-06 17:46 | Emergency (ER) | payer MEDICARE, MEDICAID, SELFPAY ==
[2023-11-06 17:49] VITALS: BP 135/85; PULSE 82; RESP 19; TEMP 36.8; O2SAT 95
--- NOTE | 2023-11-06 17:53 | CT_ITS ---
STUDY: CT BRAIN WITHOUT CONTRAST REASON FOR EXAM: Female, 68 years old. head injury Individualized dose optimization techniques were used for this CT. TECHNIQUE: Transaxial CT imaging of the brain was performed without administration of intravenous contrast material. COMPARISON: 10.21.23 FINDINGS: There are calcifications around the carotid artery. These are noted in the cavernous carotid arteries. There is hyperostosis frontalis internus. Normal soft tissues. There is mild cerebral atrophy with widening of the extra-axial spaces and ventricular dilatation. There are areas of decreased attenuation within the white matter tracts of the supratentorial brain, consistent with microvascular disease changes. Normal basal ganglia and thalami. Normal brainstem. There is mild cerebellar atrophy. There is no intracranial hemorrhage. There are no findings of an acute ischemic infarction. Acute nasal bone fracture. Normal visualized paranasal sinuses. ASPECTS Score for Acute Strokes: 10/ CT/Brain/Head without Contrast IMPRESSION: Acute nasal bone fracture. Chronic involutional changes of the brain. Electronically Signed: Mynor Rocha MD at 18:36 EDT ,
--- NOTE | 2023-11-06 17:55 | EDS_ITS ---
HPI <ERICKA Becerril - Last Filed: 11/06/23 18:58> History of Present Illness Chief Complaint: Fall Narrative Narrative: 68-year-old female brought in by EMS from [facility] after head injury. She has schizophrenia and tardive dyskinesia. She states she was sitting and leaning forward and lost her balance struck her head on the nightstand. No loss of consciousness. No blood thinners. She has a laceration and was brought in for evaluation. PFSH <ERICKA Becerril - Last Filed: 11/06/23 18:58> [facility] Medical History (Updated 11/06/23 @ 18:53 by ERICKA Becerril) Drug induced subacute dyskinesia Repeated falls Hypertension Schizophrenia Anxiety Depression Home Medications ?Medication ?Instructions ?Recorded ?Last Taken ?Type metoprolol succinate 25 mg 25 mg PO DAILY blood pressure 07/11/21 Unknown History tablet,extended release 24 hr multivitamin with folic acid 400 1 tab PO DAILY supplement 10/16/23 Unknown History mcg tablet (Daily-Christiano (with folic acid)) amantadine HCl 100 mg capsule 100 mg PO TID PRN abnormal muscle 10/21/23 Unknown History movements divalproex 250 mg tablet,delayed 250 mg PO DAILY 10/21/23 Unknown History release seizures/migraines/bipolar risperidone 1 mg tablet 1 mg PO QHS schizophrenia 10/21/23 Unknown History acetaminophen 325 mg tablet 650 mg (2 x 325 mg) PO Q6H PRN PRN 10/24/23 Unknown Rx Pain 1-10 Or Fever >100.7 #0 tabs food supplemt, lactose-reduced 120 ml PO 4X/DAY #0 mL 10/24/23 Unknown Rx 0.08 gram-1.5 kcal/mL oral liquid (Ensure Plus High Protein) Allergy/AdvReac Type Severity Reaction Status Date / Time cat dander Allergy Itching Verified 10/21/23 07:51 house dust Allergy Itching Verified 10/21/23 07:51 amoxicillin AdvReac Unknown Verified 10/21/23 07:51 aspirin AdvReac Nausea/Vom/ Verified 10/21/23 07:51 Diarrhea Social History housing: other Smoking Status: Never smoker ROS <ERICKA Becerril - Last Filed: 11/06/23 18:58> ROS ED ROS Narrative Eyes: Negative for visual change. GI: Negative for nausea, vomiting. Neuro: Positive for headache. Skin: Positive for laceration. EXAM <ERICKA Becerril - Last Filed: 11/06/23 18:58> Physical Exam Narrative Exam Narrative: CONST: Patient sitting in no acute distress. EYES: Normal inspection. PERRL, EOMI. ENT: 3 cm stellate laceration on the frontal scalp along the hairline. No active bleeding, no hematoma, no deformity or crepitus. No facial bruising. No raccoon eyes or coulter sign, no hemotympanum, no nasal septal hematoma, no CSF otorrhea or rhinorrhea. NECK: Normal inspection. No midline spinal tenderness, no step off or crepitus. RESP: No respiratory distress, CTAB. CVS: Regular rate and rhythm, no murmur, no gallop. SKIN: Color normal, no rash, warm, dry, intact. EXTREMITIES: Normal appearance, no pedal edema. NEURO: Alert and answers questions appropriately. PSYCH: Chronic tremor from tardive dyskinesia. Const Vital Signs: 11/06/23 17:49 11/06/23 18:14 Temperature 98.2 F Temperature Source Temporal Pulse Rate 82 Respiratory Rate 19 H Respiratory Effort Normal Respiratory Depth Normal Respiratory Pattern Normal Blood Pressure 135/85 H Blood Pressure Mean 101 Pulse Ox 95 Oxygen Delivery Method Room Air <Dr. Bruce Amanda MD - Last Filed: 11/06/23 18:11> Physical Exam Const Vital Signs: 11/06/23 17:49 11/06/23 18:14 Temperature 98.2 F Temperature Source Temporal Pulse Rate 82 Respiratory Rate 19 H Respiratory Effort Normal Respiratory Depth Normal Respiratory Pattern Normal Blood Pressure 135/85 H Blood Pressure Mean 101 Pulse Ox 95 Oxygen Delivery Method Room Air MDM <ERICKA Becerril - Last Filed: 11/06/23 18:58> MDM MDM Narrative Medical decision making narrative: History gathered from: Patient, EMS Patient from alf facility had a mechanical fall striking her head on the night table. There is a 3 cm stellate laceration to the mid forehead along the hairline. She has no facial bruising or bony tenderness or signs of basilar skull fracture. Neurologically intact. CT brain read as acute nasal bone fracture. She has no nasal swelling, tenderness, or bleeding so this may be old. Laceration was repaired with 5 stitches. Tetanus updated. Wound care instructions given to [facility] facility and she was discharged in stable condition. I have personally performed a face to face assessment of the patient and have reviewed the ANN Note. I performed a substantive portion of the visit including all aspects of the following. My tinsley findings include: History is 68-year-old female who extended-care facility. Fell striking her head on a standard table. Has a laceration to her mid forehead along the hairline about 2 inches. No history of being on any blood thinners. Patient is a limited informant. Exam is [six 8-year-old female lying in bed. Vital signs stable afebrile. No distress. H EENT exam pupils round react light. She has poor decaying dentition but not have been knocked out. She is about a 2 inch laceration that is horizontal along her hairline mid upper portion of her forehead. Minimal bleeding. Will definitely need repaired. Scalp nontender no hematomas. Neck and trachea nontender. Lungs clear. Heart regular rhythm rate about 80. Chest wall and ribs are nontender. Abdomen soft nontender. Pelvic girdle intact. No shortening or rotation of either hip. Passive flexion extension of both lower extremities show no tenderness. No deformity. Upper extremities are nontender. Normal parachute rigger strength. Neurologically her eyes are open. She is awake. She really answers very few questions. There is no focal motor deficits.] Medical Decision Making [68-year-old female fell in a alf. CAT scan shows chronic changes no obvious bleed. Awaiting formal radiology inte rpretation. We will local anesthetized, clean and explore the forehead laceration repaired. Tetanus will be updated.] Other additions or changes: [None] Radiography Diagnostic Testing: Clinical Impression(s) from Imaging Studies Brain CT 11/06/23 17:53 IMPRESSION: Acute nasal bone fracture. Chronic involutional changes of the brain. Electronically Signed: Mynor Rocha MD at 18:36 EDT , <Dr. Bruce Amanda MD - Last Filed: 11/06/23 18:11> MDM MDM Narrative Medical decision making narrative: I have personally performed a face to face assessment of the patient and have reviewed the ANN Note. I performed a substantive portion of the visit including all aspects of the following. My tinsley findings include: History is 68-year-old female who extended-care facility. Fell striking her head on a standard table. Has a laceration to her mid forehead along the hairline about 2 inches. No history of being on any blood thinners. Patient is a limited informant. Exam is [six 8-year-old female lying in bed. Vital signs stable afebrile. No distress. H EENT exam pupils round react light. She has poor decaying dentition but not have been knocked out. She is about a 2 inch laceration that is horizontal along her hairline mid upper portion of her forehead. Minimal bleeding. Will definitely need repaired. Scalp nontender no hematomas. Neck and trachea nontender. Lungs clear. Heart regular rhythm rate about 80. Chest wall and ribs are nontender. Abdomen soft nontender. Pelvic girdle intact. No shortening or rotation of either hip. Passive flexion extension of both lower extremities show no tenderness. No deformity. Upper extremities are nontender. Normal parachute rigger strength. Neurologically her eyes are open. She is awake. She really answers very few questions. There is no focal motor deficits.] Medical Decision Making [68-year-old female fell in a alf. CAT scan shows chronic changes no obvious bleed. Awaiting formal radiology interpretation. We will local anesthetized, clean and explore the forehead laceration repaired. Tetanus will be updated.] Other additions or changes: [None] Radiography Diagnostic Testing: Clinical Impression(s) from Imaging Studies Brain CT 11/06/23 17:53 IMPRESSION: Acute nasal bone fracture. Chronic involutional changes of the brain. Electronically Signed: Mynor Rocha MD at 18:36 EDT , Procedures <ERICKA Becerril - Last Filed: 11/06/23 18:58> Lacerations stellate frontal scalp laceration: Length: 3 cm Depth: Skin Shape: Stellate Prep: Sterile Conditions Laceration repair: Irrigated and Lidocaine Irrigated (ml): 100 Number of Sutures/Nanda: 5 Suture Information: Ethilon, Simple and 5-0 Comment: 1% lidocaine used for local anesthetic. Wound was cleansed with sterile saline and Shur-Clens. I placed 5 simple sutures for hemostasis and approximation. She tolerated procedure without complications. Discharge Plan Triage Chief Complaint: Fall ED Midlevel Provider: Adriana Roman ED Provider: Bruce Amanda Dx/Rx/DC Orders Clinical Impression: Closed head injury, Forehead laceration, Closed fracture nasal bone Instructions: ED Facial Fracture, ED FACIAL LACERATION Suture Tape Prescriptions: No Action metoprolol succinate 25 mg tablet extended release 24 hr 25 mg PO DAILY divalproex 250 mg tablet,delayed release (DR/EC) 250 mg PO DAILY risperidone 1 mg tablet 1 mg PO QHS amantadine HCl 100 mg capsule 100 mg PO TID PRN acetaminophen 325 mg Tablet 650 mg PO Q6H PRN PRN (Reason: Pain 1-10 Or Fever >100.7) Qty: 0 0RF Ensure Plus High Protein 0.08 gram-1.5 kcal/mL Liquid 120 ml PO 4X/DAY Qty: 0 0RF multivitamin with folic acid [Daily-Christiano (with folic acid)] 400 mcg tablet 1 tab PO DAILY Primary Care Provider: Paty iLnder NP Referrals: Paty Linder NP, [facility] [Primary Care Provider] - Activity Restrictions/Additional Instructions: Give Tylenol as needed for pain. She has a nasal bone fracture seen on the CAT scan which may be new or old. Keep the stitches clean and they need removed in 5 days. Print Language: Divehi Disposition Disposition: Home, Self Care
[2023-11-06] MEDS: Diphth,Pertuss(Acell),Tet Vac 0.5 ML Vial IM (18:05)
[2023-11-06] MEDS: Lidocaine/Epi/Tetracaine 50 ML 1 APPLIC TOPICAL (18:08)
--- NOTE | 2023-11-06 18:35 | ED.RN ---
Received verbal consent from pts SONAL Person over the phone with 2nd witness Indu Crowley RN
[2023-11-06 19:49] VITALS: BP 144/78
[2023-11-06 21:00] VITALS: BP 141/72; PULSE 76; RESP 16; TEMP 36.2; O2SAT 96
[2023-11-06 22:32] VITALS: BP 151/87; PULSE 87; RESP 16; TEMP 37.1; O2SAT 97
== END 2023-11-06 22:44 | disposition home or self-care (01) ==
PROVIDERS: Emergency Provider Emergency Medicine; PCP Nurse Practitioner Primary Care; Visit Provider Emergency Medicine
DX: S01.01XA Laceration without foreign body of scalp, initial encounter (principal); F20.9 Schizophrenia, unspecified; S02.2XXA Fracture of nasal bones, initial encounter for closed fracture; W01.190A Fall on same level from slipping, tripping and stumbling with subsequent striking against furniture, initial encounter; Z23 Encounter for immunization; Y92.129 Unspecified place in nursing home as the place of occurrence of the external cause; G24.01 Drug induced subacute dyskinesia; I10 Essential (primary) hypertension; R29.6 Repeated falls; F32.A Depression, unspecified; F41.9 Anxiety disorder, unspecified; Z79.899 Other long term (current) drug therapy
CPT/HCPCS: 12002; 70450; 90715; 99283

== ENCOUNTER → 2023-12-13 | Outpatient (REF) | payer MEDICARE, MEDICAID, SELFPAY ==
[2023-12-13 09:53] LABS: Hematocrit 38.8 % (37-47); Hemoglobin 12.5 g/dL (12.0-15.0); Mean Corp Hgb Conc 32.2 g/dL (32-36); Mean Corpuscular Hgb 29.9 pg (27.0-32.0); Mean Corpuscular Volume 92.8 fL (81-99); Mean Platelet Vol. 10.3 fl (6.2-12.0); Platelet Count 238 K/mm3 (150-450); RBC Distribution Width CV 13.8 % (11.6-14.6); RBC Distribution Width SD 47.4 fl (35.1-43.9); Red Blood Count 4.18 M/mm3 (4.2-5.4); White Blood Count 7.1 K/mm3 (4.4-11.0)
[2023-12-13 10:15] LABS: Valproic Acid (Depakene) Level < 3 ug/mL (50-100)
[2023-12-13 10:21] LABS: AST(SGOT) 13 U/L (15-37); Alanine Aminotransfer ALT/SGPT 21 U/L (13-56); Albumin, Serum 3.1 g/dL (3.2-5.0); Alkaline Phosphatase 54 U/L (45-117); Bilirubin, Direct 0.11 mg/dL (0.00-0.30); Globulin 3.3 g/dL (2.2-4.2); Protein, Total 6.4 g/dL (6.4-8.2)
== END ==
LOC: OLS.SW 05:00
PROVIDERS: PCP Nurse Practitioner Primary Care; Referring Provider Family Medicine; Visit Provider Family Medicine
DX: Z51.81 Encounter for therapeutic drug level monitoring (principal); Z79.899 Other long term (current) drug therapy
CPT/HCPCS: 36415; 80076; 80164; 85027

== ENCOUNTER → 2024-03-13 05:00 | Outpatient (REF) | payer MEDICARE, MEDICAID, SELFPAY ==
[2024-03-13 08:25] LABS: Hematocrit 35.5 % (37-47); Hemoglobin 11.3 g/dL (12.0-15.0); Mean Corp Hgb Conc 31.8 g/dL (32-36); Mean Corpuscular Hgb 30.1 pg (27.0-32.0); Mean Corpuscular Volume 94.4 fL (81-99); Mean Platelet Vol. 10.4 fl (6.2-12.0); Platelet Count 189 K/mm3 (150-450); RBC Distribution Width CV 13.7 % (11.6-14.6); RBC Distribution Width SD 47.4 fl (35.1-43.9); Red Blood Count 3.76 M/mm3 (4.2-5.4)
[2024-03-13 08:34] LABS: Valproic Acid (Depakene) Level 41 ug/mL (50-100)
[2024-03-13 08:40] LABS: AST(SGOT) 11 U/L (15-37); Alanine Aminotransfer ALT/SGPT 17 U/L (13-56); Albumin, Serum 2.7 g/dL (3.2-5.0); Alkaline Phosphatase 51 U/L (45-117); Bilirubin, Direct 0.11 mg/dL (0.00-0.30); Globulin 2.9 g/dL (2.2-4.2); Protein, Total 5.6 g/dL (6.4-8.2)
== END ==
LOC: OLS.SW 05:00
PROVIDERS: PCP Nurse Practitioner Primary Care; Visit Provider Family Medicine
DX: Z79.899 Other long term (current) drug therapy (principal)
CPT/HCPCS: 36415; 80076; 80164; 85027

== ENCOUNTER → 2024-06-04 06:10 | Outpatient (REF) | payer MEDICARE, MEDICAID, SELFPAY ==
[2024-06-04 09:08] LABS: Absolute Lymphocyte Count 2.14 X10^3/uL (0.83-4.51); Absolute Neutrophil Count 2.4 X10^3/uL (2.0-7.7); Basophil# 0.02 X10^3/uL; Basophil% 0.4 % (0-1); Eosinophil# 0.24 X10^3/uL; Eosinophils% 4.5 % (0-5); Hematocrit 38.5 % (37-47); Hemoglobin 12.8 g/dL (12.0-15.0); Lymphocyte # 2.14 X10^3/ul (0.83-4.51); Lymphocyte % 40.3 % (19-41); Mean Corp Hgb Conc 33.2 g/dL (32-36); Mean Corpuscular Hgb 30.9 pg (27.0-32.0); Mean Platelet Vol. 10.5 fl (6.2-12.0); Monocyte% 9.4 % (0-10); NRBC Flagged by Analyzer 0 % (0-5); Neutrophil # 2.38 X10^3/uL (2.7-7.7); Neutrophil % 44.8 % (47-70); Platelet Count 165 K/mm3 (150-450); RBC Distribution Width CV 13.2 % (11.6-14.6); RBC Distribution Width SD 45.2 fl (35.1-43.9); Red Blood Count 4.14 M/mm3 (4.2-5.4); White Blood Count 5.3 K/mm3 (4.4-11.0)
[2024-06-04 09:38] LABS: Valproic Acid (Depakene) Level 50 ug/mL (50-100)
[2024-06-04 09:39] LABS: ALB/GLOB Ratio 0.9 RATIO (0.9-2.4); AST(SGOT) 15 U/L (15-37); Alanine Aminotransfer ALT/SGPT 21 U/L (13-56); Albumin, Serum 3.2 g/dL (3.2-5.0); Alkaline Phosphatase 105 U/L (45-117); Anion Gap 5 (5-15); BUN 15 mg/dL (7-18); BUN/Creat Ratio 19.6 RATIO (10-20); Calcium,Total 8.8 mg/dL (8.5-10.1); Chloride 104 mmol/L (98-107); Creatinine, Serum 0.77 mg/dL (0.55-1.02); EST Glomerular Filtration Rate 79 mL/min (>60); Est Glom Filt Rate - Afr Amer 96 mL/min (>60); Globulin 3.7 g/dL (2.2-4.2); Glucose 90 mg/dL (74-106); Potassium 4.1 mmol/L (3.5-5.1); Protein, Total 6.9 g/dL (6.4-8.2); Sodium Level 137 mmol/L (136-145)
[2024-06-04 10:03] LABS: Hemoglobin A1c 5.3 % (3.8-5.6)
[2024-06-04 14:30] LABS: Vitamin B12 471 pg/mL (211-911); Vitamin D,25 Hydroxy 43.2 ng/mL
== END ==
LOC: OLS.SW 06:10
PROVIDERS: PCP Nurse Practitioner Primary Care; Visit Provider Internal Medicine
DX: F20.9 Schizophrenia, unspecified (principal)
CPT/HCPCS: 36415; 80053; 80164; 82306; 82607; 83036; 84443; 85025

== ENCOUNTER → 2024-06-20 05:00 | Outpatient (REF) | payer MEDICARE, MEDICAID, SELFPAY | LOC: OLS.SW 05:00 | PROVIDERS: PCP Nurse Practitioner Primary Care; Visit Provider Internal Medicine | DX: E03.9 Hypothyroidism, unspecified (principal) | CPT/HCPCS: 36415; 84443 ==

== ENCOUNTER → 2024-09-26 05:00 | Outpatient (REF) | payer MEDICARE, MEDICAID, SELFPAY ==
[2024-09-26 09:14] LABS: Hematocrit 37.8 % (37-47); Hemoglobin 12.7 g/dL (12.0-15.0); Mean Corp Hgb Conc 33.6 g/dL (32-36); Mean Corpuscular Hgb 29.8 pg (27.0-32.0); Mean Corpuscular Volume 88.7 fL (81-99); Platelet Count 122 K/mm3 (150-450); RBC Distribution Width CV 14.1 % (11.6-14.6); RBC Distribution Width SD 45.9 fl (35.1-43.9); Red Blood Count 4.26 M/mm3 (4.2-5.4); White Blood Count 3.2 K/mm3 (4.4-11.0)
[2024-09-26 09:40] LABS: Anion Gap 12 (5-15); BUN 22 mg/dL (4-19); BUN/Creat Ratio 19.8 RATIO (10-20); Calcium,Total 8.5 mg/dL (7.6-11.0); Carbon Dioxide 19.2 mmol/L (21.0-32.0); Chloride 97 mmol/L (98-108); Creatinine, Serum 1.11 mg/dL (0.70-1.20); EST Glomerular Filtration Rate 54 (>60); Glucose 97 mg/dL (70-99); Potassium 4.7 mmol/L (3.3-5.1); Sodium Level 128 mmol/L (133-145)
== END ==
LOC: OLS.SW 05:00
PROVIDERS: PCP Nurse Practitioner Primary Care; Visit Provider Internal Medicine
DX: N17.9 Acute kidney failure, unspecified (principal); R50.9 Fever, unspecified; I10 Essential (primary) hypertension; E03.9 Hypothyroidism, unspecified
CPT/HCPCS: 36415; 80048; 84443; 85027

== ENCOUNTER 2024-09-27 00:31 | Emergency (ER) | payer MEDICARE, MEDICAID, SELFPAY ==
[2024-09-27 00:34] VITALS: BP 107/59; PULSE 90; RESP 15; TEMP 37.1; O2SAT 100; O2SAT 96; BMI 25.8
--- NOTE | 2024-09-27 00:43 | CT_ITS ---
PROCEDURE: BRAIN/HEAD WITHOUT CONTRAST 09/27/2024 REASON FOR EXAM: TRAUMA/FALL TECHNIQUE: Head CT without intravenous contrast. Coronal and Sagittal reconstruction series were provided. One or more dose reduction techniques were used (e.g., Automated exposure control, adjustment of the mA and/or kV according to patient size, use of iterative reconstruction technique. RADIATION DOSE SUMMARY: CTDlvol: 44.99 mGy DLP: 981.71 mGycm COMPARISON: 11/06/2023 FINDINGS: No intracranial hemorrhage, mass effect or calvarial fracture. The ventricles are unchanged in size and remain midline. Chronic and involutional changes again noted. There is now a small area of paramedian left frontal interhemispheric encephalomalacia for example axial 39 which was not previously seen. The paranasal sinuses, mastoids and orbits appear within limits. Nasal fracture deformity and rightward bowing of the nasal septum is not significantly changed since the prior study of 11/06/2023. Right TMJ degenerative change again noted. CT/Brain/Head without Contrast IMPRESSION: No intracranial hemorrhage, mass effect or calvarial fracture. Chronic and involutional changes again noted. There is now a small area of paramedian left frontal interhemispheric encephalo malacia for example axial 39 which was not previously seen. Reading Location: [id number]
--- NOTE | 2024-09-27 00:43 | RAD_ITS ---
EXAM: DX femur minimum two views CLINICAL HISTORY: Fall, injury COMPARISON: None available TECHNIQUE: Two views left femur, 4 total images to include the entire femur FINDINGS: No fracture. Arterial vascular calcification noted. Left hip appears within limits. RAD/Femur Min 2 Views IMPRESSION: No fracture. Reading Location: [id number]
--- NOTE | 2024-09-27 01:05 | RAD_ITS ---
PROCEDURE: PELVIS 1 OR 2 VIEWS 09/27/2024 REASON FOR EXAM: FALL/PAIN LEFT TECHNIQUE: 1 view(s) of the pelvis. COMPARISON: None available FINDINGS: No fracture or dislocation. Symmetric appearing SI joints and pubic symphysis appear within limits. The visualized lower lumbar spine is curved to the left with appearance of multilevel spondylosis/discogenic change. RAD/Pelvis 1 or 2 Views IMPRESSION: No fracture or dislocation. Reading Location: [id number]
--- NOTE | 2024-09-27 01:18 | EDS_ITS ---
HPI HPI - Fall History of Present Illness Chief Complaint: Fall Informant: patient and EMS Narrative Narrative: 68-year-old schizophrenic detention patient accidentally fell out of bed and was sent to have her injuries assessed. She complains of pain in her left thigh. She denies headache, facial pain, although her nose looks asymmetric and nurses at the facility told our staff this is different than usual. PFSH PFSH Medical History Hypothyroidism Fluency disorder Unsteadiness Failure to thrive Tremor Drug induced subacute dyskinesia Repeated falls Hypertension Schizophrenia Anxiety Depression Home Medications ?Medication ?Instructions ?Recorded ?Last Taken ?Type metoprolol succinate 25 mg 25 mg PO DAILY blood pressu re 07/11/21 Unknown History tablet,extended release 24 hr multivitamin with folic acid 400 1 tab PO DAILY supple ment 10/16/23 Unknown History mcg tablet (Daily-Christiano (with folic acid)) amantadine HCl 100 mg capsule 100 mg PO TID PRN abnorm al muscle 10/21/23 Unknown History movements divalproex 250 mg tablet,delayed 250 mg PO DAILY 10/20 Unknown History release seizures/migraines/bipolar risperidone 1 mg tablet 1 mg PO QHS schizophrenia Unknown History acetaminophen 325 mg tablet 650 mg (2 x 325 mg) PO Q6H PRN PRN 10/24/23 Unknown Rx Pain 1-10 Or Fever >100.7 #0 tabs food supplemt, lactose-reduced 120 ml PO 4X/DAY #0 mL 10/24/23 Unknown Rx 0.08 gram-1.5 kcal/mL oral liquid (Ensure Plus High Protein) Allergy/AdvReac Type Severity Reaction Status Date / Time cat dander Allergy Itching Verified 09/27/24 00:39 house dust Allergy Itching Verified 09/27/24 00:39 amoxicillin AdvReac Unknown Verified 09/27/24 00:39 aspirin AdvReac Nausea/Vom/ Verified 09/27/24 00:39 Diarrhea Social History (Updated 09/27/24 @ 01:[address] Jayesh Sierra MD) housing: detention Smoking Status: Never smoker ROS ROS ED Review of Systems ROS Unobtainable: due to mental condition ENT ENT ED: Denies facial pain Cardiovascular Cardiovascular: Denies chest pain Respiratory/Chest Respiratory/Chest: Denies dyspnea Gastrointestinal Gastrointestinal: Denies abdominal pain or nausea Musculoskeletal Musculoskeletal: Reports extremity pain; Denies back pain or neck pain Neurologic Neurologic: Denies headache(s) or paresthesias EXAM Physical Exam Const Vital Signs: 09/27/24 00:34 09/27/24 00:40 09/27/24 01:43 Temperature 98.8 F 98.7 F Temperature Source Oral Pulse Rate 90 88 Respiratory Rate 15 11 L Respiratory Effort Normal Non-Labored Respiratory Depth Normal Respiratory Pattern Normal Blood Pressure 107/59 L 101/66 Blood Pressure Mean 75 77 Pulse Ox 96 97 Oxygen Delivery Method Room Air Room Air Positive well nourished and well developed General Appearance ED: well developed and NAD HEENT Reports TM's clear and nasal mucous membranes and turbinates normal HEENT Narrative: Facial tremor. Contusion high mid forehead without hematoma, crepitance, depression. Mild asymmetry of the nose, but the cartilaginous portion of the nose nor the bony portion are tender. There is some dried blood on the outside of the nose but nothing on the inside. No oral injury or blood. trauma Face and Sinus: Negative for facial tenderness Tympanic Membrane ED: Yes TM's clear Eyes PERRL and EOMs intact bilaterally Visual Acuity: other Other Details: no entrapment or pain with extraocular movements Neck full ROM and supple General: Negative for tenderness Chest Wall inspection of chest normal and palpation of chest normal Chest: symmetrical chest wall rise; Negative for crepitus or tenderness Resp normal respiratory effort and clear to auscultation bilaterally Percussion: other equal BS bilat Cardio no murmurs Rate: regular rate Rhythm: regular rhythm GI normal to inspection, nondistended, normoactive bowel sounds, soft to palpation and non-tender Back/Spine normal ROM Cervical Spine: Negative for cervical spine tenderness Thoracic Spine / Upper Back: Negative for thoracic spinal tenderness Lumbar Spine / Lower Back: Negative for lumbar spinal tenderness Extremity normal to inspection and full ROM Extremity Narrative: Tenderness in the left thigh. All compartments are soft and nondistended. Normal on inspection. She is able to flex at the hip and the knee without difficulty although she states it hurts in her mid thigh to do so. Pelvis is stable to AP compression. Full range of motion of all other extremities without difficulty. There is a contusion on the left dorsal distal forearm, it is nontender and she uses her left hand to grab mine and help pull herself up to a sitting position without difficulty. General Extremety ED: Yes tenderness Neuro CN's II-XII intact bilaterally, moves all extremities, no focal motor deficits and no sensory deficits noted Baltic Coma Scale: document GCS findings Spontaneous Obeys Commands Oriented 15 Sensorium / Orientation: awake and alert Psych Psych Narrative: Flat affect Skin no wounds Lesions: no lesions Rashes: no rashes MDM MDM MDM Narrative Medical decision making narrative: On my interpretation CT of the head is negative for acute fracture or intracranial hemorrhage. I compared this with similar images from October of last year, which showed the same bony curvature/asymmetry of the nasal bone that she has right now. 4 view x-ray series of the left femur are also negative for acute fracture/dislocation and are normal. Also obtained a 1 view pelvis to screen for a pelvis fracture given her pain in this region, my interpretation that shows no acute fractures. Patient is otherwise doing well her vital signs are normal and she stable for discharge back to the detention. History & Record Review Additional record(s) reviewed:: Other (Prior images-CT brain/nose) Radiography Diagnostic Testing: Clinical Impression(s) from Imaging Studies Brain CT 09/27/24 00:43 IMPRESSION: No intracranial hemorrhage, mass effect or calvarial fracture. Chronic and involutional changes again noted. There is now a small area of paramedian left frontal interhemispheric encephalomalacia for example axial 39 which was not previously seen. Reading Location: [facility] Femur X-Ray 09/27/24 00:43 IMPRESSION: No fracture. Reading Location: [facility] Pelvis X-Ray 09/27/24 01:05 IMPRESSION: No fracture or dislocation. Reading Location: [facility] Discharge Plan Triage Chief Complaint: Fall ED Provider: Jayesh Sierra Dx/Rx/DC Orders Clinical Impression: Forehead contusion, Contusion of nose, Contusion of left thigh, Contusion of forearm, left, Accidental fall from bed Instructions: Bruises (Contusions) Prescriptions: No Action metoprolol succinate 25 mg tablet extended release 24 hr 25 mg PO DAILY divalproex 250 mg tablet,delayed release (DR/EC) 250 mg PO DAILY risperidone 1 mg tablet 1 mg PO QHS amantadine HCl 100 mg capsule 100 mg PO TID PRN acetaminophen 325 mg Tablet 650 mg PO Q6H PRN PRN (Reason: Pain 1-10 Or Fever >100.7) Qty: 0 0RF Ensure Plus High Protein 0.08 gram-1.5 kcal/mL Liquid 120 ml PO 4X/DAY Qty: 0 0RF multivitamin with folic acid [Daily-Christiano (with folic acid)] 400 mcg tablet 1 tab PO DAILY Primary Care Provider: Paty Linder NP Referrals: Paty Linder NP, [facility] [Primary Care Provider] - As Needed Print Language: Emirati Disposition Disposition: Home, Self Care
--- NOTE | 2024-09-27 01:35 | ED.RN ---
This RN called report to [facility].
[2024-09-27] MEDS: Acetaminophen 325 MG Tablet 650 MG PO (01:42)
[2024-09-27 01:43] VITALS: BP 101/66; PULSE 88; RESP 11; TEMP 37.1; O2SAT 97
[2024-09-27 04:00] VITALS: PULSE 78; RESP 16; O2SAT 96
[2024-09-27 06:00] VITALS: BP 97/59; PULSE 83; RESP 18; O2SAT 94
== END 2024-09-27 06:58 | disposition home or self-care (01) ==
PROVIDERS: Emergency Provider Emergency Medicine; PCP Nurse Practitioner Primary Care; Visit Provider Emergency Medicine
DX: S00.83XA Contusion of other part of head, initial encounter (principal); F20.9 Schizophrenia, unspecified; S50.12XA Contusion of left forearm, initial encounter; W06.XXXA Fall from bed, initial encounter; S00.33XA Contusion of nose, initial encounter; S70.12XA Contusion of left thigh, initial encounter; I10 Essential (primary) hypertension; E03.9 Hypothyroidism, unspecified; F32.A Depression, unspecified; F41.9 Anxiety disorder, unspecified; Z79.899 Other long term (current) drug therapy
CPT/HCPCS: 70450; 72170; 73552; 99284